=== PATIENT | female | born 1990 | race Caucasian/White ===

== ENCOUNTER 2016-11-08 08:44 | Emergency (ER) | payer BC ==
[~2016-11-08] VITALS: Ht 170.2 cm; Wt 78.0 kg
[~2016-11-08 08:44] MED LIST: ACET500T98 PO; AMO500 PO; IBUP-1542 PO; IBUP200C PO; TRAM50TA2 PO
[2016-11-08 08:51] VITALS: Ht 170.2 cm; Wt 78.0 kg
--- NOTE | 2016-11-08 12:58 | ERD ---
ER Documentation Chief Complaint Date/Time DATE: 11/08/16 TIME: 12:52 Chief Complaint RT BREAST PAIN STATES MIGHT HAVE A LEAK FROM IMPLANTS HPI Patient is a 26-year-old female who presents to the emergency department for concerns of right breast implant leakage. Patient states that she noticed that her right breast felt "more mushy and droopy" this morning. Patient does report some mild breast discomfort however she denies any pain. Patient denies any nipple discharge or bleeding. Patient denies any fevers, chills, nausea, vomiting, chest pain, shortness of breath, loss of consciousness.. Patient states she had her breast implants completed in 2005. Patient states they are not saline implants. Patient states that she did not follow-up with her surgeon given that he is now . ROS All systems reviewed and are negative except as per history of present illness. Medications Home Meds Active Scripts Tramadol HCl (Tramadol HCl) 50 Mg Tablet, 50 MG PO Q4 Y for PAIN, #15 TAB Prov:JI CELIS MD 04/07/16 Ibuprofen* (Motrin*) 600 Mg Tab, 600 MG PO Q6, #20 TAB Prov:JI CELIS MD 04/07/16 Ibuprofen* (Motrin*) 600 Mg Tab, 600 MG PO Q6, #14 TAB Prov:JI CELIS MD 06/08/15 Amoxicillin* (Amoxicillin*) 500 Mg Cap, 500 MG PO TID for 10 Days, CAP Prov:JI CELIS MD 06/08/15 Reported Medications Ibuprofen* (Ibuprofen*) 200 Mg Capsule, 800 MG PO PRN 10/13/11 Acetaminophen (Tylenol) 500 Mg Tab, 2 MG PO PRN 10/13/11 Allergies Allergies: Coded Allergies: No Known Allergy (Verified , 11/08/16) PMhx/Soc History of Surgery: No Anesthesia Reaction: No Hx Neurological Disorder: No Hx Respiratory Disorders: No Hx Cardiac Disorders: No Hx Psychiatric Problems: No Hx Miscellaneous Medical Probl: Yes (MIGRAINE) Hx Alcohol Use: No Hx Substance Use: No Hx Tobacco Use: No Smoking Status: Never smoker FmHx Family History: No diabetes Physical Exam Vitals Vital Signs Date Time Temp Pulse Resp B/P Pulse Ox O2 Delivery O2 Flow Rate FiO2 11/08/16 08:51 98.2 80 20 141/65 100 Physical Exam GENERAL: Well-developed, well-nourished female. Appears in no acute distress. HEAD: Normocephalic, atraumatic. EYES: Pupils are equally reactive bilaterally. EOMs grossly intact. No conjunctival erythema. ENT: Moist mucous membranes. No uvula deviation. No kissing tonsils. BREAST: Soft, no lumps or masses palpated. No edema, warmth, swelling or redness noted. No nipple discharge or bleeding. NECK: Supple. No meningismus. Normal range of motion of the neck. LUNG: Clear to auscultation bilaterally. No rhonchi, wheezing, rales or coarse breath sounds. HEART: Regular rate and rhythm. No murmurs, rubs or gallops. ABDOMEN: No scars, ecchymosis or rashes noted. Soft, nontender, and nondistended. Positive bowel sounds in all four quadrants. No rebound tenderness , no guarding. (-) McBurney's point tenderness. No CVA tenderness. BACK: No midline tenderness. EXTREMITIES: Equal pulses bilaterally. No peripheral clubbing, cyanosis or edema. No unilateral leg swelling. NEUROLOGIC: Alert and oriented. Moving all four extremities without any difficulty. Normal speech. Steady gait. SKIN: Normal color. Warm and dry. No rashes or lesions. Procedures/MDM MEDICAL DECISION MAKING: Patient is a 26-year-old female who presents to the emergency department with concerns of a right breast implant leakage. Vital signs were reviewed. Patient is afebrile. Patient was not hypoxic. I did offer and order the patient an ultrasound of her bilateral breasts, however upon ultrasound technicians arrival , patient was not found. Myself, nursing staff and ultrasound staff attempted to call the patient on numerous encounters, she continued to not be found. At this time, unable to rule out any causes of the patient's breast discomfort given that the patient eloped prior to receiving ultrasound imaging. Departure Condition: Stable LIANNA BARGER PA-C November 08, 2016 12:57
== END 2016-11-08 13:14 | disposition left against medical advice (07) ==
LOC: FTE 08:44
DX: N64.4 Mastodynia (principal)
CPT/HCPCS: 99282

== ENCOUNTER 2018-01-17 21:12 | Emergency (ER) | END 2018-01-18 00:10 | disposition left against medical advice (07) ==

== ENCOUNTER 2018-03-01 02:39 | Emergency (ER) | END 2018-03-01 02:49 | disposition left against medical advice (07) ==

== ENCOUNTER 2018-03-01 03:38 | Emergency (ER) | END 2018-03-01 05:10 | disposition home or self-care (01) ==

== ENCOUNTER 2018-07-11 18:22 | Inpatient (IN) | payer BC ==
[~2018-07-11] VITALS: Ht 165.1 cm; Wt 88.7 kg
[~2018-07-11 18:22] MED LIST changes: +ACET500C5 PO; -AMO500 PO; +AMOX500C2 PO; +IBUP-1982 PO; -IBUP200C PO; +NITR-58 PO
[2018-07-11 18:38] VITALS: BMI 32.9
[2018-07-11 18:40] VITALS: BP 127/77; PULSE 134; RESP 18
[2018-07-11] MEDS ORDERED: ACETAMINOPHEN 325 MG TAB PO ONE ×2 (19:00→19:30)
[2018-07-11] MEDS ORDERED: TERBUTALINE 1 MG/ML INJ SC ONE (19:00)
[2018-07-11] MEDS ORDERED: LACTATED RINGER'S 1,000 ML IV ONE (19:00)
[2018-07-11] MEDS: LACTATED RINGER'S 1,000 ML IV SCH (20:10)
[2018-07-11] MEDS ORDERED: BETAMET NA PHOS/AC(6 MG/ML) 2 ML INJ SYG IM SCH (22:30)
[2018-07-11] MEDS: URSODIOL 300 MG CAP PO SCH (22:43)
[2018-07-11] MEDS: CEPASTAT LOZENGE MT PRN (22:45)
[2018-07-11] MEDS: ACETAMINOPHEN 500 MG TAB PO PRN (23:21)
[2018-07-12 00:23] VITALS: BP 120/59; PULSE 123; RESP 20
[2018-07-12] MEDS: OSELTAMIVIR 75 MG CAP PO SCH ×3 (00:35→20:57)
[2018-07-12] MEDS ORDERED: TERBUTALINE 1 MG/ML INJ SC PRN (01:30)
[2018-07-12] MEDS: CEPASTAT LOZENGE MT PRN ×4 (01:55→23:26)
[2018-07-12] MEDS: LACTATED RINGER'S 1,000 ML IV SCH ×5 (01:56→20:45)
[2018-07-12] MEDS: ACETAMINOPHEN 500 MG TAB PO PRN ×2 (06:02→11:21)
[2018-07-12] MEDS ORDERED: PENICILLIN G K 2,500,000 UNITS in DEXTROSE 5% 50 ML IVPB PRN (06:30)
[2018-07-12] MEDS ORDERED: PENICILLIN G K 5,000,000 UNITS in DEXTROSE 5% 100 ML IVPB ONE (06:30)
[2018-07-12] MEDS ORDERED: CEFAZOLIN 1 GM INJ ONE (07:00)
[2018-07-12] MEDS: URSODIOL 300 MG CAP PO SCH ×2 (08:26→13:00)
[2018-07-12] MEDS: FERROUS SULFATE (EC) 325 MG TAB PO SCH (08:26)
[2018-07-12] MEDS: PRENATAL VITAMIN PO SCH (08:27)
[2018-07-12] MEDS ORDERED: AMPICILLIN 2 GM/NS (PMX) 100 ML ONE (11:53)
[2018-07-12] MEDS ORDERED: AMPICILLIN 2 GM/NS (PMX) 100 ML IV ONE (12:00)
--- NOTE | 2018-07-12 12:09 | HP ---
Date/Time of Note Date/Time of Note DATE: 07/12/18 TIME: 11:59 OB - History Hx of Present Free Text/Dictation see H&P [id number] Chief Complaint: as above Estimated Due Date: Aug 04, 2018 : 2 Para: 1 Care: Good Care Ultrasounds: Normal mid trimester US Obstetrical Complications: Other (cholestasis of , Influenza A) Past Family/Social History * Past Medical, Surgical, Family and Obstetric Histories reviewed from chart. OB Admission Exam Vital Signs Vital Signs Vital Signs Date Temp Pulse Resp B/P (MAP) Pulse Ox O2 O2 Flow FiO2 Time Delivery Rate 07/12/18 100.7 11:21 07/12/18 123 20 120/59 Room Air 00:23 (79) Last 72 hours Lab Results CBC & BMP 07/11/18 18:51 07/12/18 07:06 07/12/18 07:12 Liver Function Test 07/11/18 18:51 07/12/18 07:12 Alanine Aminotransferase (ALT/SGPT) 46 41 Albumin 3.5 2.8 L Alkaline Phosphatase 133 H 129 H Aspartate Amino Transf (AST/SGOT) 249 H 179 H Direct Bilirubin 0.00 0.00 Total Protein 6.9 5.8 #L THAO BUCKNER M.D. Jul 12, 2018 12:09
[2018-07-12] MEDS ORDERED: OXYTOCIN 30 UNITS/LR 500 ML IV SCH ×4 (12:30→17:11)
[2018-07-12] MEDS ORDERED: LIDOCAINE 1% (MPF) 30 ML INJ INJ PRN (13:00)
[2018-07-12] MEDS ORDERED: IBUPROFEN 600 MG TAB PO PRN (13:00)
[2018-07-12] MEDS ORDERED: METHYLERGONOVINE 0.2 MG INJ IM PRN ×3 (13:00→17:30)
[2018-07-12] MEDS ORDERED: BUTORPHANOL 2 MG INJ IV PRN (13:00)
[2018-07-12] MEDS ORDERED: OXYCODONE/ASPIRIN (4.88/325) TAB PO PRN (13:00)
[2018-07-12] MEDS ORDERED: BUTORPHANOL 1 MG INJ IV PRN (13:00)
[2018-07-12] MEDS ORDERED: OXYTOCIN 30 UNITS/LR 500 ML IV PRN ×3 (13:00→17:30)
[2018-07-12] MEDS ORDERED: CARBOPROST 250 MCG INJ IM PRN ×3 (13:00→17:30)
[2018-07-12] MEDS ORDERED: MISOPROSTOL 200 MCG TAB PR PRN ×3 (13:00→17:30)
--- NOTE | 2018-07-12 13:02 | HP ---
DATE OF ADMISSION: 07/11/2018 HISTORY OF PRESENT ILLNESS: A 28-year-old para 0-1-0-1, currently at 36 weeks and 5 days, was seen i n my office yesterday and was complaining of 2 weeks of severe diffuse abdominal itch and feeling sic k. The patient was sent to the hospital for further evaluation and was found to have elevation of T. Blood pressure was normal. Urine protein was negative and depressed platelet count, swab was foun d to be positive for influenza A. The patient was 2 cm dilation at that time, 80% effaced, -2. The patient was started on IV fluid hydration. She was found to have a fever as well and was started on Tamiflu 75 mg b.i.d. A complete laboratory tests was sent as well as urine culture. heart rate was tachycardic as well as the patient. In the morning, the patient's AST decreased a bit and the platelets as well went down to 107,000. WBC was 7.8. Her AST went down to 179. heart was tachycardic and the mother as well. The last temperature was 100.7. The patient was received a first dose of steroids for lung maturity yesterday and at 12:00 toda y in the afternoon she will get a second dose. I discussed the findings with Dr. Mock, the perinato logist, who recommended delivery of the patient secondary to suspected severe cholestasis of pregnanc y with liver function test elevation; however, if any diagnosis of cholestasis could not be made seco ndary to bile acid still pending. I discussed the rationale of induction of labor or augmenting of t he labor with the patient. I informed her that we do not have a definitive diagnosis of cholestasis of . However, we suspect that and we found that the risk of labor is lower than the risks of the cholestasis of . Patient understands and would like to proceed with augmentat ion of labor. Currently, I examined the patient and her cervix was 3, 80 -2 a change from 2 to 3 sin ce yesterday. Hence, the patient is in early labor already. GBS is still pending, so we will start the patient with ampicillin and will start on Pitocin as well. The patient's laboratory tests and OB panel were reviewed. OBSTETRICAL HISTORY: History of previous was consistent with labor and she was on [place] until 36 weeks. Currently, the is tachycardic; however does have good variability and a ccelerations. PLAN: The plan for this patient is to start Pitocin and ampicillin, will break her water in 4 hours. Will give epidural for pain control where it can help her with her back pain that she has. Will iso late the mother from the baby after delivery secondary to influenza A. Will continue on Actigall 300 mg 3 times a day and will continue with the Tamiflu. This management was discussed with Dr. Mock, the perinatologist. Dictated By: THAO BUCKNER MD RA/NTS Conf#: [id number] DID#: [id number] CC: INES RODRIGUEZ MD;*EndCC*
[2018-07-12] MEDS ORDERED: FENTAnyl 2MCG/ML-ROPIV 0.2% 100 ML ONE (13:35)
--- NOTE | 2018-07-12 13:53 | PAC ---
Date/Time of Note Date/Time of Note DATE: 07/13/18 TIME: 11:00 Post-Anesthesia Notes Post-Anesthesia Note Last documented vital signs Vital Signs Date Temp Pulse Resp B/P (MAP) Pulse Ox O2 O2 Flow FiO2 Time Delivery Rate 07/12/18 100.7 11:21 07/12/18 123 20 120/59 Room Air 00:23 (79) Activity: WNL Respiratory function: WNL Cardiovascular function: WNL Mental status: Baseline Pain reasonably controlled: Yes Hydration appropriate: Yes Nausea/Vomiting absent: Yes TIMOTHY HERNANDEZ MD Jul 12, 2018 13:53
--- NOTE | 2018-07-12 13:53 | PREAC ---
Date/Time of Note Date/Time of Note DATE: 07/12/18 TIME: 13:49 Anesthesia Eval and Record Evaluation Time Pre-Procedure Interview DATE: 07/12/18 TIME: 12:59 Age 28 Sex female NPO: 8 hrs Preoperative diagnosis iup @36 wks., labor, , severe uri sx's, maternal/ tachycardia Planned procedure naomi Past Medical History Past Medical History: Includes Cardio: Other (tachycardia) Pulm: Other (uri, flu A) GI: Other (cholestasis) : : (1), Para: (0), Gestational age: (36 wks.), Other (cholestasis, uri sx.s) Surgery & Anesthesia Issues No known issue Meds Anticoagulation: No Beta Lashae within 24 hr: No Reason Beta Lashae not given: Pt. not on B-Lashae Active Scripts Nitrofurantoin Monohyd Macrocr* (Macrobid*) 100 Mg Capsr, 100 MG PO BID for 7 Da ys, CAP Prov:ROSEMARY WOOD PA-C 03/01/18 Acetaminophen* (Tylophen*) 500 Mg Capsule, 1 CAP PO Q6H PRN for PAIN AND OR ELEVATED TEMP, #20 CAP Prov:NANCY LOPEZ 01/17/18 Tramadol HCl (Tramadol HCl) 50 Mg Tablet, 50 MG PO Q4 PRN for PAIN, #15 TAB Prov:JI CELIS MD 04/07/16 Ibuprofen* (Motrin*) 600 Mg Tab, 600 MG PO Q6, #20 TAB Prov:JI CELIS MD 04/07/16 Ibuprofen* (Motrin*) 600 Mg Tab, 600 MG PO Q6, #14 TAB Prov:JI CELIS MD 06/08/15 Amoxicillin* (Amoxicillin*) 500 Mg Cap, 500 MG PO TID for 10 Days, CAP Prov:JI CELIS MD 06/08/15 Reported Medications Ibuprofen* (Ibuprofen*) 200 Mg Capsule, 800 MG PO PRN 10/13/11 Acetaminophen (Tylenol) 500 Mg Tab, 2 MG PO PRN 10/13/11 Current Medications Lactated Ringer's 1,000 ml @ 125 mls/hr Q8H IV Last administered on 07/12/18at 08:26; Admin Dose 125 MLS/HR; Start 07/11/18 at 19:00 Betamethasone Acet/Betameth SodPhos ([place] Soluspan) 12 mg Q24H IM Last administered on 07/11/18 22:46; Admin Dose 12 MG; Start 07/11/18 at 22:30; Stop 07/12/18 at 22:31 Prenat Multivit/ [place]/Iron/Folic Ac () 1 tab DAILY PO Last administered on 07/12/18 08:27; Admin Dose 1 TAB; Start 07/12/18 at 09:00 Ferrous Sulfate (Ferrous Sulfate (Ec)) 325 mg DAILY PO Last administered on 07/12/18 08:26; Admin Dose 325 MG; Start 07/12/18 at 09:00 Ursodiol (Actigall) 300 mg TID PO Last administered on 07/12/18 08:26; Admin Dose 300 MG; Start 07/11/18 at 22:30 Acetaminophen (Tylenol Tab) 1,000 mg Q4H PRN PO MILD PAIN(1-3)OR ELEVATED TEMP Last administered on 07/12/18 11:21; Admin Dose 1,000 MG; Start 07/11/18 at 21:30 Phenol (Cepastat Lozenge) 1 lozenge Q1H PRN MT COUGH Last administered on 07/12/18 07:39; Admin Dose 1 LOZENGE; Start 07/11/18 at 22:30 Oseltamivir Phosphate (Tamiflu) 75 mg BID PO Last administered on 07/12/18 08:26; Admin Dose 75 MG; Start 07/12/18 at 00:00; Stop 07/16/18 at 09:01 Terbutaline Sulfate (Brethine) 0.25 mg ONCE PRN SC CONTRACTIONS Last administered on 07/12/18 03:20; Admin Dose 0.25 MG; Start 07/12/18 at 01:30 Ampicillin 50 ml @ 100 mls/hr Q4H IV ; Start 07/12/18 at 16:00 Oxytocin/Lactated Ringer's 500 ml @ 0 mls/hr FOR AUGMENTATION IV ; Start 07/12/18 at 12:30 Lactated Ringer's 1,000 ml @ 125 mls/hr Q8H IV Last administered on 07/12/18 13:41; Admin Dose 125 MLS/HR; Start 07/12/18 at 12:45 Butorphanol Tartrate (Stadol) 1 mg Q2H PRN IV PAIN; Start 07/12/18 at 13:00 Butorphanol Tartrate (Stadol) 2 mg Q2H PRN IV PAIN; Start 07/12/18 at 13:00 Lidocaine (Xylocaine 1% (Mpf)) 30 ml ONCE PRN INJ EPISIOTOMY; Start 07/12/18 at 13:00 Oxytocin/Lactated Ringer's 500 ml @ 500 mls/hr ONCE POST IV ; Start 07/12/18 at 13:00 Oxytocin/Lactated Ringer's 500 ml @ 125 mls/hr POST IV ; Start 07/12/18 at 13:00 Ibuprofen (Motrin) 600 mg ONCE PRN PO PAIN LEVEL 1-5; Start 07/12/18 at 13:00 Oxycodone/Aspirin (Percodan) 2 tab ONCE PRN PO PAIN LEVEL 6-10; Start 07/12/18 at 13:00 Oxytocin/Lactated Ringer's 500 ml @ 0 mls/hr ONCE PRN IV VAGINAL BLEEDING; Start 07/12/18 at 13:00 Methylergonovine Maleate (Methergine) 0.2 mg ONCE PRN IM VAGINAL BLEEDING; Start 07/12/18 at 13:00 Carboprost Tromethamine (Hemabate) 250 mcg ONCE PRN IM VAGINAL BLEEDING; Start 07/12/18 at 13:00 Misoprostol (Cytotec) 1,000 mcg ONCE PRN [place] VAGINAL BLEEDING; Start 07/12/18 at 13:00 Meds reviewed: Yes Allergies Coded Allergies: No Known Allergy (Verified , 11/08/16) Allergies Reviewed: Yes Labs/Studies Labs Reviewed: Reviewed by anesthesiologist Result Diagram: 07/12/18 0706 07/12/18 0712 Laboratory Tests 07/12/18 07:06 07/12/18 07:12 Blood Bank Test 07/11/18 18:51 Antibody Screen NEGATIVE Blood Type B POSITIVE Rh Immune Globulin Candidate NO test: Positive Studies: ECG (n/a), CXR (n/a) Pre-procedure Exam Last vitals Vital Signs Date Temp Pulse Resp B/P (MAP) Pulse Ox O2 O2 Flow FiO2 Time Delivery Rate 07/12/18 100.7 11:21 07/12/18 123 20 120/59 Room Air 00:23 (79) Airway: Adequate mouth opening, Adequate thyromental dist Mallampati: Mallampati II Teeth: Normal Lung: Normal Heart: Normal ASA Physical Status ASA physical status: 2 Emergency: E Planned Anesthetic Neuraxial: Epidural Planned Pain Management Local by surgeon Pre-operative Attestations Prior to commencing anesthesia and surgery, the patient was re-evaluated, there was verification of: *The patient's identity *The results of appropriate recent lab work and preoperative vital signs *The above evaluation not changing prior to induction *Anesthetic plan, risk benefits, alternative and complications discussed with patient/family; questions answered; patient/family understands, accepts and wishes to proceed. Tafe Teacher used TIMOTHY HERNANDEZ MD Jul 12, 2018 13:53
[2018-07-12] MEDS ORDERED: FENTAnyl 2MCG/ML-ROPIV 0.2% 100 ML BAG EPI SCH (14:00)
[2018-07-12] MEDS ORDERED: NALOXONE (0.4 MG/ML) INJ IV PRN ×2 (14:00→19:00)
[2018-07-12] MEDS ORDERED: AMPICILLIN 1 GM/NS (PMX) 50 ML IV SCH (16:00)
[2018-07-12] MEDS ORDERED: ACETAMINOPHEN 650 MG SUPP PR ONE ×2 (16:30→16:38)
--- NOTE | 2018-07-12 16:40 | QN ---
Documentation Comment I was contacted by to rupture the amniotic membranes for this patient I have reviewed the patient's chart and at this point I believe this patient should be managed by the attending physician. OLGA FAJARDO MD Jul 12, 2018 16:40
--- NOTE | 2018-07-12 16:46 | CONS ---
DATE OF ADMISSION: 07/11/2018 DATE OF CONSULTATION: 07/12/2018 I received a call this morning about this patient. She is currently 36.5 and was admitted secondary to moderate feeling hot. They did a swab for the flu and that she is positive for the flu. In addit ion, she has been experiencing itching. The bile acid is worsened today. Per Dr. Buckner, she is on Actigall. Her AST and ALT are over 160. heart tone is tachycardia, but there are acceleration s. In the addition, mother is tachycardic. At the time of receiving the call, patient was afebrile; however, I am unable to strip right now which is 5 minutes to 1. There are two values that are mate rnal fever. RECOMMENDATIONS: My recommendation is delivery given the cholestasis in regard with the itching and elevated liver enzyme. She is over 36 weeks. I do understand that the flu can elevate the liver enz ymes; however, this will not cause itching and overall with severe cholestasis, there is a chance of sudden , and given the gestational age, the best option would be delivery. Please make dumont re baby does not have deceleration. If there is any subtle deceleration, she needs to be delivered v ia . Otherwise, just the cooling measures and seen in consult internal medicine if there is a ____ managem ent for the fluid necessary and technically heart tone elevation is reactive to the maternal st atus and if with the maternal temperature comes down, so will the heart tone. Generally just c ooling measures for the mother. If needed, internal medicine can be consulted and for the baby, deli very is recommended given the cholestasis with the 6-year liver enzyme elevation over 36 weeks. The patient needs to understand that delivery risks of 37 increases the risk of lung maturity to about sl ightly higher than 3 to 4%, but the risk and the benefits would be to wait more towards delivery, whi ch will save the baby from possible . Dictated By: RANDA CONNER MD ST/NTS Conf#: [id number] DID#: [id number] CC: THAO BUCKNER MD;*EndCC*
--- NOTE | 2018-07-12 17:16 | QN ---
Documentation Comment see H&P [id number] THAO BUCKNER M.D. Jul 12, 2018 17:16
[2018-07-12] MEDS ORDERED: NACL 0.9% 3 ML SYG IV SCH (17:30)
[2018-07-12] MEDS ORDERED: CEFAZOLIN 2 GM/50 ML (PMX) 50 ML IVPB SCH (17:30)
[2018-07-12] MEDS ORDERED: KETOROLAC 30 MG INJ IV PRN ×2 (17:30→19:00)
[2018-07-12] MEDS ORDERED: HYDROCODONE/APAP (5/325) TAB PO PRN (17:30)
--- NOTE | 2018-07-12 17:42 | QN ---
Documentation Comment addendum to H&O dictation. Consent obtained for BTL. Pt still desires the BTL.Will perform the BTL per patient request. SHe does understand of its irreversaebility also understand it is a permanent procedure. Understand of alternatives such as IUD, OCP , Condooms and declines them THAO BUCKNER M.D. Jul 12, 2018 17:42
[2018-07-12] MEDS ORDERED: LIDOCAINE 2% (SDV) 5 ML INJ ONE (17:53)
[2018-07-12] MEDS ORDERED: AZITHROMYCIN 500MG/NS (PMX) 250 ML ONE (17:59)
[2018-07-12] MEDS ORDERED: ONDANSETRON 4 MG INJ ONE (18:03)
[2018-07-12] MEDS ORDERED: METOCLOPRAMIDE 10 MG INJ ONE ×2 (18:04→18:35)
[2018-07-12] MEDS ORDERED: morphine SULFATE/PF (10 MG/10 ML) INJ ONE (18:17)
[2018-07-12] MEDS ORDERED: OXYTOCIN 10 UNIT INJ ONE (18:19)
[2018-07-12] MEDS ORDERED: MIDAZOLAM 1 MG/ML 2 ML INJ ONE ×2 (18:23→18:33)
[2018-07-12] MEDS ORDERED: LACTATED RINGER'S 1,000 ML IV ONE (18:36)
[2018-07-12] MEDS ORDERED: KETOROLAC 30 MG INJ ONE (18:52)
[2018-07-12] MEDS ORDERED: FENTAnyl 50 MCG/ML VIAL ONE (18:54)
--- NOTE | 2018-07-12 18:55 | PREAC ---
Date/Time of Note Date/Time of Note DATE: 07/12/18 TIME: 18:49 Anesthesia Eval and Record Evaluation Time Pre-Procedure Interview DATE: 07/12/18 TIME: 17:29 Age 28 Sex female NPO: 8 hrs Preoperative diagnosis iup @ 36 wks., uri sx's, cholestasis, distress Planned procedure primary c/s Past Medical History Past Medical History: Includes : : (1), Para: (0), Gestational age: (36 wks.), Other ( tachycardia) Surgery & Anesthesia Issues No known issue Meds Anticoagulation: No Beta Lashae within 24 hr: No Reason Beta Lashae not given: Pt. not on B-Lashae Active Scripts Nitrofurantoin Monohyd Macrocr* (Macrobid*) 100 Mg Capsr, 100 MG PO BID for 7 Days, CAP Prov:ROSEMARY WOOD PA-C 03/01/18 Acetaminophen* (Tylophen*) 500 Mg Capsule, 1 CAP PO Q6H PRN for PAIN AND OR ELEVATED TEMP, #20 CAP Prov:NANCY LOPEZ 01/17/18 Tramadol HCl (Tramadol HCl) 50 Mg Tablet, 50 MG PO Q4 PRN for PAIN, #15 TAB Prov:JI CELIS MD 04/07/16 Ibuprofen* (Motrin*) 600 Mg Tab, 600 MG PO Q6, #20 TAB Prov:JI CELIS MD 04/07/16 Ibuprofen* (Motrin*) 600 Mg Tab, 600 MG PO Q6, #14 TAB Prov:JI CELIS MD 06/08/15 Amoxicillin* (Amoxicillin*) 500 Mg Cap, 500 MG PO TID for 10 Days, CAP Prov:JI CELIS MD 06/08/15 Reported Medications Ibuprofen* (Ibuprofen*) 200 Mg Capsule, 800 MG PO PRN 10/13/11 Acetaminophen (Tylenol) 500 Mg Tab, 2 MG PO PRN 10/13/11 Current Medications Betamethasone Acet/Betameth SodPhos ([place] Soluspan) 12 mg Q24H IM Last administered on 07/11/18at 22:46; Admin Dose 12 MG; Start 07/11/18 at 22:30; Stop 07/12/18 at 22:31 Prenat Multivit/ Machine Egg Washer/Iron/Folic Ac () 1 tab DAILY PO Last administered on 07/12/18 08:27; Admin Dose 1 TAB; Start 07/12/18 at 09:00 Ferrous Sulfate (Ferrous Sulfate (Ec)) 325 mg DAILY PO Last administered on 07/12/18 08:26; Admin Dose 325 MG; Start 07/12/18 at 09:00 Ursodiol (Actigall) 300 mg TID PO Last administered on 07/12/18 08:26; Admin Dose 300 MG; Start 07/11/18 at 22:30 Acetaminophen (Tylenol Tab) 1,000 mg Q4H PRN PO MILD PAIN(1-3)OR ELEVATED TEMP Last administered on 07/12/18 11:21; Admin Dose 1,000 MG; Start 07/11/18 at 21:30 Phenol (Cepastat Lozenge) 1 lozenge Q1H PRN MT COUGH Last administered on 07/12/18 07:39; Admin Dose 1 LOZENGE; Start 07/11/18 at 22:30 Oseltamivir Phosphate (Tamiflu) 75 mg BID PO Last administered on 07/12/18 08:26; Admin Dose 75 MG; Start 07/12/18 at 00:00; Stop 07/16/18 at 09:01 Terbutaline Sulfate (Brethine) 0.25 mg ONCE PRN SC CONTRACTIONS Last administered on 07/12/18 03:20; Admin Dose 0.25 MG; Start 07/12/18 at 01:30 Ampicillin 50 ml @ 100 mls/hr Q4H IV Last administered on 07/12/18 16:35; Admin Dose 100 MLS/HR; Start 07/12/18 at 16:00 Oxytocin/Lactated Ringer's 500 ml @ 0 mls/hr FOR AUGMENTATION IV Last administered on 07/12/18 14:02; Admin Dose 2 MLS/HR; Start 07/12/18 at 12:30 Lactated Ringer's 1,000 ml @ 125 mls/hr Q8H IV Last administered on 07/12/18 13:41; Admin Dose 125 MLS/HR; Start 07/12/18 at 12:45 Butorphanol Tartrate (Stadol) 1 mg Q2H PRN IV PAIN; Start 07/12/18 at 13:00 Butorphanol Tartrate (Stadol) 2 mg Q2H PRN IV PAIN; Start 07/12/18 at 13:00 Lidocaine (Xylocaine 1% (Mpf)) 30 ml ONCE PRN INJ EPISIOTOMY; Start 07/12/18 at 13:00 Oxytocin/Lactated Ringer's 500 ml @ 500 mls/hr ONCE POST IV ; Start 07/12/18 at 13:00 Oxytocin/Lactated Ringer's 500 ml @ 125 mls/hr POST IV ; Start 07/12/18 at 13:00 Ibuprofen (Motrin) 600 mg ONCE PRN PO PAIN LEVEL 1-5; Start 07/12/18 at 13:00 Oxycodone/Aspirin (Percodan) 2 tab ONCE PRN PO PAIN LEVEL 6-10; Start 07/12/18 at 13:00 Naloxone HCl (Narcan) 0.1 mg Q2M PRN IV DECREASED REPIRATORY RATE; Start 07/12/18 at 14:00; Stop 07/13/18 at 13:59 Fentanyl/ Ropivacaine 100 ml EPIDURAL INFUSION EPI ; Start 07/12/18 at 14:00 Cefazolin Sodium/ Dextrose 50 ml @ 100 mls/hr ONCE IVPB ; Start 07/12/18 at 17:30 Oxytocin/Lactated Ringer's 500 ml @ 0 mls/hr ONCE PRN IV VAGINAL BLEEDING; Start 07/12/18 at 17:30 IV Flush (NS 3 ml) 3 ml PER PROTOCOL IV ; Start 07/12/18 at 17:30 Oxytocin/Lactated Ringer's 500 ml @ 50 mls/hr Q10H IV ; Start 07/12/18 at 17:11; Stop 07/13/18 at 03:10 Acetaminophen/ Hydrocodone Bitart ([place] (5/325)) 1 tab Q4H PRN PO PAIN LEVEL 4-6; Start 07/12/18 at 17:30 Acetaminophen/ Hydrocodone Bitart ([place] (5/325)) 2 tab Q4H PRN PO PAIN LEVEL 7-10; Start 07/12/18 at 17:30 Ibuprofen (Motrin) 600 mg Q6 PO ; Start 07/15/18 at 18:00 Oxytocin/Lactated Ringer's 500 ml @ 0 mls/hr ONCE PRN IV VAGINAL BLEEDING; Start 07/12/18 at 17:30 Methylergonovine Maleate (Methergine) 0.2 mg ONCE PRN IM VAGINAL BLEEDING; Start 07/12/18 at 17:30 Carboprost Tromethamine (Hemabate) 250 mcg ONCE PRN IM VAGINAL BLEEDING; Start 07/12/18 at 17:30 Misoprostol (Cytotec) 1,000 mcg ONCE PRN [place] VAGINAL BLEEDING; Start 07/12/18 at 17:30 Ketorolac Tromethamine (Toradol) 30 mg Q6H PRN IV PAIN LEVEL 1-3; Start 07/12/18 at 17:30; Stop 07/15/18 at 17:29 Meds reviewed: Yes Allergies Coded Allergies: No Known Allergy (Verified , 11/08/16) Allergies Reviewed: Yes Labs/Studies Labs Reviewed: Reviewed by anesthesiologist Result Diagram: 07/12/18 0706 07/12/18 0712 Laboratory Tests 07/12/18 07:06 07/12/18 07:12 Blood Bank Test 07/11/18 18:51 Antibody Screen NEGATIVE Blood Product Summary Counts Blood Type B POSITIVE Rh Immune Globulin Candidate NO test: Positive Studies: ECG (n/a), CXR (n/a) Pre-procedure Exam Last vitals Vital Signs Date Temp Pulse Resp B/P (MAP) Pulse Ox O2 O2 Flow FiO2 Time Delivery Rate 07/12/18 101.1 12:25 07/12/18 123 20 120/59 Room Air 00:23 (79) Airway: Adequate mouth opening, Adequate thyromental dist Mallampati: Mallampati II Teeth: Normal Lung: Normal Heart: Normal ASA Physical Status ASA physical status: 2 Emergency: E Planned Anesthetic General/MAC: TIVA (post baby) Neuraxial: Epidural Planned Pain Management Epidural (epidural narcotics) Pre-operative Attestations Prior to commencing anesthesia and surgery, the patient was re-evaluated, there was verification of: *The patient's identity *The results of appropriate recent lab work and preoperative vital signs *The above evaluation not changing prior to induction *Anesthetic plan, risk benefits, alternative and complications discussed with patient/family; questions answered; patient/family understands, accepts and wishes to proceed. Truck Bench Mechanic used TIMOTHY HERNANDEZ MD Jul 12, 2018 18:55
[2018-07-12] MEDS ORDERED: MEPERIDINE 25 MG INJ IV PRN (19:00)
[2018-07-12] MEDS ORDERED: ZOLPIDEM 5 MG TAB PO PRN (19:00)
[2018-07-12] MEDS ORDERED: HYDROmorphONE 0.5 MG/0.5 ML SYG IV PRN ×2 (19:00)
[2018-07-12] MEDS ORDERED: NALBUPHINE HCL (10 MG/1 ML) INJ IV PRN (19:00)
[2018-07-12] MEDS ORDERED: HYDROmorphONE 1 MG/5 ML IV SYRINGE IV PRN ×3 (19:00)
[2018-07-12] MEDS ORDERED: MIDAZOLAM 1 MG/ML 2 ML INJ IV PRN (19:00)
[2018-07-12] MEDS ORDERED: ONDANSETRON 4 MG INJ IV PRN ×2 (19:00)
[2018-07-12] MEDS ORDERED: DIPHENHYDRAMINE 50 MG INJ IV PRN ×2 (19:00)
[2018-07-12] MEDS ORDERED: EPHEDrine SULFATE 50 MG/5 ML SYG IV PRN (19:00)
--- NOTE | 2018-07-12 19:00 | PAC ---
Date/Time of Note Date/Time of Note DATE: 07/12/18 TIME: 23:30 Post-Anesthesia Notes Post-Anesthesia Note Last documented vital signs Vital Signs Date Temp Pulse Resp B/P (MAP) Pulse Ox O2 O2 Flow FiO2 Time Delivery Rate 07/12/18 101.1 12:25 07/12/18 123 20 120/59 Room Air 00:23 (79) Activity: WNL Respiratory function: WNL Cardiovascular function: WNL Mental status: Baseline Pain reasonably controlled: Yes Hydration appropriate: Yes Nausea/Vomiting absent: Yes TIMOTHY HERNANDEZ MD Jul 12, 2018 19:00
--- NOTE | 2018-07-12 19:04 | QN ---
Documentation Comment see op note [id number] THAO BUCKNER M.D. Jul 12, 2018 19:04
--- NOTE | 2018-07-12 19:27 | OPPN ---
Date/Time of Note Date/Time of Note DATE: 07/13/18 TIME: 00:30 Anesthesia Follow up Anesthesia Follow up Last documented vital signs Vital Signs Date Temp Pulse Resp B/P (MAP) Pulse Ox O2 O2 Flow FiO2 Time Delivery Rate 07/12/18 101.1 12:25 07/12/18 123 20 120/59 Room Air 00:23 (79) Respiratory function: WNL Cardiovascular function: WNL Comments S: pt. pod #1. min. bt pain. min need for bt pain meds ie. nsaids/opiates. S: VSS & temp. improving HR 120s. temp. 99s. A: min. bt pain sec. to epidural mso4. P: no anesthetic complications. TIMOTHY HERNANDEZ MD Jul 12, 2018 19:27
--- NOTE | 2018-07-12 20:27 | HP ---
DATE OF ADMISSION: 07/11/2018 HISTORY OF PRESENT ILLNESS: I saw the patient who is a 28-year-old with para 0-1-0-1 that was admitted yesterday secondary to cholestasis of and the flu, the influenza A viral infection with a term induction secondary to perinatologist's recommendations. During the induction, was found to have a nonreassuring heart tracing, remote from delivery. Her cervix is 3 cm, 80%, -2, with tachycardia of 181/90, with late decelerations, now for primary for that. PAST MEDICAL HISTORY: Consistent with none. PAST SURGICAL HISTORY: Consistent with abdominoplasty. ALLERGIES: SHE NO KNOWN ALLERGIES. FAMILY HISTORY: Noncontributory. PAST OBSTETRICAL HISTORY: Consistent with one labor at 36 weeks . SOCIAL HISTORY: She denies toxic habits. PAST GYNECOLOGICAL HISTORY: She denies any history of cyst, fibroid or STDs. MEDICATIONS: The patient is currently on: 1. vitamins. 2. Actigall for cholestasis of . 3. Tamiflu for the influenza. LABORATORY TESTS: The patient's GBS is unknown. HIV, hepatitis B, and hepatitis C were negative. Gonorrhea and chlamydia was negative. T4, T3, and TSH was normal. Rubella immune, VDRL nonreactive. HIV was negative. A Pap smear actually was consistent with HPV positive. The patient is to have a repeat Pap smear after delivery. CBC today consistent with WBC of 7.8, hemoglobin of 8.7, hematocrit 26.6, and platelets of 107. UA today was negative. heart was 180-170 with late decelerations with minimal variability that time. PHYSICAL EXAMINATION: GENERAL: The patient appeared to be in agony secondary to back pain and having the influenza infection. LUNGS: Clear to auscultation bilaterally. ABDOMEN: Gravid. HEART: Regular rate and rhythm; however, she is tachycardic. EXTREMITIES: +1 edema bilaterally. VITAL SIGNS: The maximum today was 101.1, heart rate 123, respiration of 20, blood pressure 120/59. ASSESSMENT AND PLAN: This is a 28-year-old with para 0-1-0-1 at 36 weeks and 5 days, induction of labor for cholestasis of and also with influenza A, now with nonreassuring heart tracing remote from delivery for a primary C- section. The patient understands the risks of the procedure such as risk of bleeding, infection, damage to internal organs, risks of transfusion, anesthesia. She understands the benefit of the procedure will be the decrease of and maternal mortality secondary to nonreassuring heart tracing remote from delivery. Alternatively, we will continue vaginal trial. To note, the patient desired to have a bilateral tubal ligation; however, did not inform my office if she is sure about it. I informed the patient that I am more than happy drive to my office now to bring the consent, which she signed, but she and her decided not to proceed with the tubal ligation. Dictated By: THAO BUCKNER MD, RA/LIZZY Conf#: [id number] DID#: [id number] MTDD
[2018-07-12] MEDS ORDERED: OSELTAMIVIR 75 MG CAP PO SCH (21:00)
[2018-07-12] MEDS: KETOROLAC 30 MG INJ IV PRN (21:50)
[2018-07-12 22:05] VITALS: BP 136/61; PULSE 140; RESP 20
[2018-07-12 23:05] VITALS: BP 116/61; PULSE 135; RESP 20
[2018-07-13] VITALS (18 sets, daily range): BP systolic 117–141; BP diastolic 59–91; PULSE 72–126; RESP 19–29; Ht 165.1 cm; Wt 88.7 kg
--- NOTE | 2018-07-13 00:19 | OPR ---
DATE OF OPERATION: 07/12/2018 PREOPERATIVE DIAGNOSES: A 28-year-old with para 0-1-0-1 at 36 weeks and 5 days with cholestasis of p regnancy, non-reassuring heart tracing, remote from delivery, maternal fever, desires permanent sterilization. POSTOPERATIVE DIAGNOSES: A 28-year-old with para 0-1-0-1 at 36 weeks and 5 days with cholestasis of , non-reassuring heart tracing, remote from delivery, maternal fever, desires permanen t sterilization. OPERATION PERFORMED: Primary via Pfannenstiel skin incision and modified [place] bilateral tubal ligation. SURGEON: Thao Buckner MD DRILLER PORTABLE: Olga Torres MD ANESTHESIOLOGIST: William Oleary MD ANESTHESIA: Epidural anesthesia. ANTIBIOTICS GIVEN: 2 grams of Ancef prior to procedure. FINDINGS: Baby girl with Apgars 3, 8 and 9, with tight cord around the neck. Normal-appearing ovari es, tubes and uterus. Uterus as above. ESTIMATED BLOOD LOSS: 800 mL URINE OUTPUT: 90 mL clear urine at the end of the procedure. One dose of Methergine and one dose of Hemabate were given secondary to atony and bleeding . DISPOSITION: Stable, to recovery room. DESCRIPTION OF PROCEDURE: After risks, benefits and the alternatives of the procedure were discussed with the patient, the patient signed consent. She was taken to the operating room where epidural an esthesia was found to be adequate. She was then prepared and draped in normal sterile fashion in jolly thomas supine position in a leftward tilt. A Pfannenstiel skin incision was then made with the scalpel and carried throughout the underlying layer of fascia with the Bovie. The fascia was then incised me dially, extended laterally using the Bovie instrument. The fascia was then superiorly and inferiorly from the rectus muscles using the Bovie instrument. The rectus abdominal muscles were the n laterally. Peritoneum was entered sharply, stretched laterally manually and sharply. Bl adder flap was then created using the Metzenbaum scissors and bladder blade was inserted to protect t he bladder. Uterus incision was then created using the scalpel and carried laterally manually. Infa nt was then removed without any complications. Nose and mouth were suctioned. Cord was clamped and cut. Infant was handed off to the waiting nurse. Cord blood was collected. Placenta was then remov ed manually. Uterus was then exteriorized and cleared of all clots and debris. The uterus was found to be atonic. Pitocin and 1 dose of Methergine and Hemabate were given with good tonicity after. U terus incision was repaired using #1 chromic stitch in a running locked fashion. Good approximation and good hemostasis were noted. At that time, the attention was then turned to the bilateral tubes, they were grasped using the [place] and tied with 2-0 plain stitch bilaterally with double knots. Tu bes were cut using the Metzenbaum scissors and the pedicles were burned using the Bovie instrument. Portion of the tubes were sent to pathology. Gutters were then cleared of all clots and debris. The uterus was then placed back in the pelvis. Fibrillar was then placed on the incision to create tamp onade. Hemostasis was achieved. At this point, a chromic stitch was used to create excellent reappr oximation of the rectus abdominal muscles. Fascia was then reapproximated using #1 Vicryl stitch in running fashion. Subcutaneous layer was irrigated and dry. Subcutaneous layer was then reapproximat ed using 2-0 plain stitch in interrupted figure. Skin was then closed using the stapler. All instru ment count, lap count and needle count were found to be correct x3. The patient was taken back to [facility] recovery room in stable condition awakened. Dictated By: THAO BUCKNER MD, RA/LIZZY Conf#: [id number] DID#: [id number] CC: OLGA TORRES MD;*End*
[2018-07-13] MEDS: CEPASTAT LOZENGE MT PRN ×2 (03:38→21:06)
[2018-07-13] MEDS: KETOROLAC 30 MG INJ IV PRN ×2 (03:54→08:09)
[2018-07-13] MEDS: LACTATED RINGER'S 1,000 ML IV SCH ×2 (04:45→07:30)
[2018-07-13] MEDS ORDERED: LACTATED RINGER'S 1,000 ML IV SCH (08:00)
[2018-07-13] MEDS: FERROUS SULFATE (EC) 325 MG TAB PO SCH (08:09)
--- NOTE | 2018-07-13 09:32 | HP ---
Date/Time of Note Date/Time of Note DATE: 07/13/18 TIME: 09:03 Assessment/Plan VTE Prophylaxis Risk score (from Nsg)>0 risk: 3 SCD applied (from Nsg): Yes Pharmacological prophylaxis: other Lines/Catheters IV Catheter Type (from Nrsg): Peripheral IV Assessment/Plan Hospital Course Assessment and plan: 28-year-old female status post times 1 day, positive influenza A, cholestasis of , HPV, who was transferred to the ICU after with elevated temperatures, hypoxia and shortness of breath. # Shortness of breath hypoxia: Symptoms likely due to + influenza A, which was diagnosed in the last 24 hours. Patient has been on Tamiflu for the last 24 hours. Chest x-ray does show signs of possible pulmonary vascular congestion versus pneumonia.ABG was performed this morning, that showed pH of 7.42, PCO2 34, PaO2 of 83, and bicarb of 22.5. -Continue care in the intensive care unit for now, try to wean patient off nonrebreather, will get infectious disease and pulmonary consults -ABG results reviewed, monitor for now, consider duo nebs as needed -continue Tamiflu -Motrin and perhaps Percodan as needed for pain fevers # Elevated LFTs/cholestasis of : AST ALT mid 100-200 range. Of note patient was on Actigall before delivery. - continue to monitor liver enzymes. 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 No signs of any bleeding. -Monitor CBC daily, hold off on any anticoagulants. Critical care time spent on patient care today equals 55 minutes. Result Diagram: 07/13/18 0749 07/13/18 0749 Results 24hrs Laboratory Tests Test 07/12/18 11:00 07/13/18 07:49 07/13/18 08:18 Prothrombin Time 13.2 Prothrombin Time Ratio 1.0 INR International 0.99 Normalized Ratio Activated Partial Thromboplast 30.3 Time White Blood Count 6.5 Red Blood Count 3.00 L Hemoglobin 8.5 L Hematocrit 26.3 L Mean Corpuscular Volume 87.7 Mean Corpuscular Hemoglobin 28.3 L Mean Corpuscular 32.3 Hemoglobin Concent Red Cell Distribution Width 13.9 Platelet Count 106 L Mean Platelet Volume 13.7 H Immature Granulocytes % 1.200 H Neutrophils % 87.4 H Lymphocytes % 7.5 L Monocytes % 3.7 Eosinophils % 0.0 Basophils % 0.2 Nucleated Red Blood Cells % 0.0 Immature Granulocytes # 0.080 H Neutrophils # 5.7 Lymphocytes # 0.5 L Monocytes # 0.2 L Eosinophils # 0.0 Basophils # 0.0 Nucleated Red Blood Cells # 0.0 Sodium Level 136 Potassium Level 4.0 Chloride Level 109 Carbon Dioxide Level 22 Anion Gap 5 Blood Urea Nitrogen 9 Creatinine 0.47 Est Glomerular Filtrat > 60 Rate mL/min Glucose Level 100 Calcium Level 8.2 L Total Bilirubin 0.0 L Direct Bilirubin 0.00 Indirect Bilirubin 0.0 Aspartate Amino 321 H Transf (AST/SGOT) Alanine 64 Aminotransferase (ALT/SGPT) Alkaline Phosphatase 99 Total Protein 5.0 L Albumin 2.4 L Globulin 2.60 Albumin/Globulin Ratio 0.92 Blood Gas Specimen Source Blood arterial Arterial Blood Date Drawn 07/13/2018 8:50:11 AM Arterial Blood pH 7.427 (Temp corrected) Arterial Blood pCO2 34.9 L (Temp correct) Arterial Blood pO2 83.3 (Temp corrected) Arterial Blood HCO3 22.5 Arterial Blood Base Excess -1.5 Arterial Blood 95.7 Oxygen Saturation Bin Test N/A Arterial Blood Gas Right Brachial Puncture Site Arterial 0.3 Blood Carboxyhemoglobin Arterial Blood Methemoglobin 0.2 Blood Gas A-a O2 Differential 594.8 H Oxyhemoglobin Percent 95.2 Blood Gas Temperature 37.0 Blood Gas Modality MASK - NRB FiO2 100.0 Blood Gas Notified Whom AT Blood Gas Notified Time 07/13/2018 8:58:28 AM HPI/ROS Admit Date/Time Admit Date/Time Jul 11, 2018 at 21:22 Hx of Present Illness 28-year-old para 0-1-0-1, status post yesterday, positive influenza A diagnosed in the last 1-2 days presently on Tamiflu, HPV, elevated LFTs - cholestasis of , who was transferred to intensive care unit early this morning with shortness of breath and hypoxia. Patient was brought in for induction of labor yesterday because of the cholestasis of . Apparently during the delivery baby's heart rate became tachycardic and this was converted to a which occurred yesterday. Afterwards patient pos toperatively yesterday evening started having shortness of breath and desaturation to the mid 80s. An NURSING CONSULTANT was called then and patient was placed on oxygen supplementation including nonrebreather. Patient is presently on nonrebreather and now transferred to intensive care unit. No upper or lower GI bleeding, diarrhea constipation, or nausea vomiting. Patient did have elevated temperature this morning 100.1. ABG was performed that showed pH of 7.42, PCO2 34, PaO2 of 83, and bicarb of 22.5. Patient is presently on Tamiflu and low- dose IV fluids but her chest x-ray does show signs of mild cardiomegaly with increased pulmonary vascularity, interstitial pulmonary edema and bilateral pleural effusions, cannot rule out CHF or fluid overload versus superimposed pneumonia. PMH/Family/Social Past Medical History Medications Current Medications Prenat Multivit/ [place]/Iron/Folic Ac () 1 tab DAILY PO Last administered on 07/12/18 08:27; Admin Dose 1 TAB; Start 07/12/18 at 09:00 Ferrous Sulfate (Ferrous Sulfate (Ec)) 325 mg DAILY PO Last administered on 07/13/18 08:09; Admin Dose 325 MG; Start 07/12/18 at 09:00 Acetaminophen (Tylenol Tab) 1,000 mg Q4H PRN PO MILD PAIN(1-3)OR ELEVATED TEMP Last administered on 07/12/18 11:21; Admin Dose 1,000 MG; Start 07/11/18 at 21:30 Phenol (Cepastat Lozenge) 1 lozenge Q1H PRN MT COUGH Last administered on 07/13/18 03:38; Admin Dose 1 LOZENGE; Start 07/11/18 at 22:30 Oseltamivir Phosphate (Tamiflu) 75 mg BID PO Last administered on 07/12/18 20:57; Admin Dose 75 MG; Start 07/12/18 at 00:00; Stop 07/16/18 at 09:01 Terbutaline Sulfate ([place]) 0.25 mg ONCE PRN SC CONTRACTIONS Last administered on 07/12/18 03:20; Admin Dose 0.25 MG; Start 07/12/18 at 01:30 Oxytocin/Lactated Ringer's 500 ml @ 0 mls/hr FOR AUGMENTATION IV Last administered on 07/12/18at 14:02; Admin Dose 2 MLS/HR; Start 07/12/18 at 12:30 Lactated Ringer's 1,000 ml @ 125 mls/hr Q8H IV Last administered on 07/13/18at 07:30; Admin Dose 125 MLS/HR; Start 07/12/18 at 12:45 Oxytocin/Lactated Ringer's 500 ml @ 500 mls/hr ONCE POST IV Last administered on 07/12/18at 19:23; Admin Dose 500 MLS/HR; Start 07/12/18 at 13:00 Oxytocin/Lactated Ringer's 500 ml @ 125 mls/hr POST IV ; Start 07/12/18 at 13:00 Ibuprofen (Motrin) 600 mg ONCE PRN PO PAIN LEVEL 1-5; Start 07/12/18 at 13:00 Oxycodone/Aspirin (Percodan) 2 tab ONCE PRN PO PAIN LEVEL 6-10; Start 07/12/18 at 13:00 Naloxone HCl (Narcan) 0.1 mg Q2M PRN IV DECREASED REPIRATORY RATE; Start 07/12/18 at 14:00; Stop 07/13/18 at 13:59 Oxytocin/Lactated Ringer's 500 ml @ 0 mls/hr ONCE PRN IV VAGINAL BLEEDING; Start 07/12/18 at 17:30 IV Flush (NS 3 ml) 3 ml PER PROTOCOL IV ; Start 07/12/18 at 17:30 Acetaminophen/ Hydrocodone Bitart ([place] (5/325)) 1 tab Q4H PRN PO PAIN LEVEL 4-6 Last administered on 07/13/18at 08:09; Admin Dose 1 TAB; Start 07/12/18 at 1 7:30 Acetaminophen/ Hydrocodone Bitart ([place] (5/325)) 2 tab Q4H PRN PO PAIN LEVEL 7-10; Start 07/12/18 at 17:30 Ibuprofen (Motrin) 600 mg Q6 PO ; Start 07/13/18 at 18:00 Oxytocin/Lactated Ringer's 500 ml @ 0 mls/hr ONCE PRN IV VAGINAL BLEEDING; Start 07/12/18 at 17:30 Methylergonovine Maleate (Methergine) 0.2 mg ONCE PRN IM VAGINAL BLEEDING; Start 07/12/18 at 17:30 Carboprost Tromethamine (Hemabate) 250 mcg ONCE PRN IM VAGINAL BLEEDING; Start 07/12/18 at 17:30 Misoprostol (Cytotec) 1,000 mcg ONCE PRN [place] VAGINAL BLEEDING; Start 07/12/18 at 17:30 Naloxone HCl (Narcan) 0.1 mg Q2M PRN IV DECREASED REPIRATORY RATE; Start 07/12/18 at 19:00; Stop 07/13/18 at 18:59 Ketorolac Tromethamine (Toradol) 30 mg Q6H PRN IV PAIN Last administered on 07/13/18at 08:09; Admin Dose 30 MG; Start 07/12/18 at 19:00; Stop 07/13/18 at 18:59 Hydromorphone HCl (Dilaudid) 0.2 mg Q3H PRN IV PAIN LEVEL 1-5; Start 07/12/18 at 19:00; Stop 07/13/18 at 18:59 Hydromorphone HCl (Dilaudid) 0.4 mg Q3H PRN IV PAIN LEVEL 6-10 Last adm inistered on 07/12/18at 20:06; Admin Dose 0.4 MG; Start 07/12/18 at 19:00; Stop 07/13/18 at 18:59 Diphenhydramine HCl (Benadryl) 25 mg Q6H PRN IV ITCHING; Start 07/12/18 at 19:00; Stop 07/13/18 at 18:59 Nalbuphine HCl (Nubain) 2 mg ONCE PRN IV ITCHING; Start 07/12/18 at 19:00; Stop 07/13/18 at 18:59 Ondansetron HCl (Zofran Inj) 4 mg Q6H PRN IV NAUSEA AND/OR VOMITING; Start 07/12/18 at 19:00; Stop 07/13/18 at 18:59 Zolpidem Tartrate (Ambien) 5 mg HS MAY REPEAT X 1 PRN PO INSOMNIA; Start 07/12/18 at 19:00; Stop 07/13/18 at 18:59 Lactated Ringer's 1,000 ml @ 50 mls/hr Q20H IV ; Start 07/13/18 at 08:00 Coded Allergies: No Known Allergy (Verified , 11/08/16) Past Surgical History Past Surgical Hx: other (Liposuction, prior breast implants with removal) Social History Alcohol Use: none Smoking Status: Never smoker Drug Use: none Exam/Review of Systems Vital Signs Vitals Vital Signs Date Temp Pulse Resp B/P (MAP) Pulse Ox O2 O2 Flow FiO2 Time Delivery Rate 07/13/18 96 15.0 04:02 07/13/18 100.1 117 20 141/64 Non 04:00 (89) Rebreathe r Intake and Output 07/12/18 07/12/18 07/13/18 1515:00 23:00 07:00 IntakeIntake Total 1452 ml 303 ml 375 ml OutputOutput Total 700 ml 1475 ml 175 ml BalanceBalance 752 ml -1172 ml 200 ml Exam Exam GENERAL: Lying in bed, on nonrebreather HEENT: Pupils equal round reactive light, extra muscles are intact NECK: Supple LUNGS: Slightly distant breath sounds bilaterally CV: S1, S2 heard ABDOMEN: Nondistended, no rebound or guarding HEART: Regular rate and rhythm; however, she is tachycardic. EXTREMITIES: Trace pitting edema bilateral lower extremity to the mid calves NEURO: No focal deficits LING ESCALANTE Jul 13, 2018 09:14
[2018-07-13] MEDS ORDERED: SOD CHLORIDE 0.45% 1,000 ML IV SCH (10:00)
[2018-07-13] MEDS: PRENATAL VITAMIN PO SCH (10:54)
[2018-07-13] MEDS: OSELTAMIVIR 75 MG CAP PO SCH ×2 (11:00→20:09)
--- NOTE | 2018-07-13 11:37 | CONS ---
Date/Time of Note Date/Time of Note DATE: 07/13/18 TIME: 11:24 Assessment/Plan Assessment/Plan Assessment/Plan IMP: 1. Hypoxemic Respiratory Insufficiency--in a patient post- with Influenza A and CXR with B/L ground glass opacities and mild congestion. This likely represents a viral pneumonia, though other considerations include Dennis's Syndrome (aspiration pneumonitis in ) and less likely post- cardiomyopathy. 2. Elevated LFTs/cholestasis of 3. Status post : Postop day #1 4. Thrombocytopenia 5, Anemia RECS: 1. Monitor in ICU 2. Titrate O2 as tolerated 3. Continue Tamiflu 4. RUQ U/S 5. D/C IVFs 6. ECHO 7. Lovenox for VTE prophylaxis 8. Incentive spirometry 9. Gentle diuresis Result Diagram: 07/13/18 0749 07/13/18 0749 Results 24hrs Laboratory Tests Test 07/13/18 07:49 07/13/18 08:18 White Blood Count 6.5 Red Blood Count 3.00 L Hemoglobin 8.5 L Hematocrit 26.3 L Mean Corpuscular Volume 87.7 Mean Corpuscular Hemoglobin 28.3 L Mean Corpuscular Hemoglobin Concent 32.3 Red Cell Distribution Width 13.9 Platelet Count 106 L Mean Platelet Volume 13.7 H Immature Granulocytes % 1.200 H Neutrophils % 87.4 H Lymphocytes % 7.5 L Monocytes % 3.7 Eosinophils % 0.0 Basophils % 0.2 Nucleated Red Blood Cells % 0.0 Immature Granulocytes # 0.080 H Neutrophils # 5.7 Lymphocytes # 0.5 L Monocytes # 0.2 L Eosinophils # 0.0 Basophils # 0.0 Nucleated Red Blood Cells # 0.0 Sodium Level 136 Potassium Level 4.0 Chloride Level 109 Carbon Dioxide Level 22 Anion Gap 5 Blood Urea Nitrogen 9 Creatinine 0.47 Est Glomerular Filtrat Rate mL/min > 60 Glucose Level 100 Calcium Level 8.2 L Total Bilirubin 0.0 L Direct Bilirubin 0.00 Indirect Bilirubin 0.0 Aspartate Amino Transf (AST/SGOT) 321 H Alanine Aminotransferase (ALT/SGPT) 64 Alkaline Phosphatase 99 Total Protein 5.0 L Albumin 2.4 L Globulin 2.60 Albumin/Globulin Ratio 0.92 Blood Gas Specimen Source Blood arterial Arterial Blood Date Drawn 07/13/2018 8:50:11 AM Arterial Blood pH (Temp corrected) 7.427 Arterial Blood pCO2 (Temp correct) 34.9 L Arterial Blood pO2 (Temp corrected) 83.3 Arterial Blood HCO3 22.5 Arterial Blood Base Excess -1.5 Arterial Blood Oxygen Saturation 95.7 Bin Test N/A Arterial Blood Gas Puncture Site Right Brachial Arterial Blood Carboxyhemoglobin 0.3 Arterial Blood Methemoglobin 0.2 Blood Gas A-a O2 Differential 594.8 H Oxyhemoglobin Percent 95.2 Blood Gas Temperature 37.0 Blood Gas Modality MASK - NRB FiO2 100.0 Blood Gas Notified Whom AT Blood Gas Notified Time 07/13/2018 8:58:28 AM Consultation Date/Type/Reason Admit Date/Time Jul 11, 2018 at 21:22 Date of Consultation: Jul 13, 2018 Type of Consult Pulm/CCM Reason for Consultation Hypoxemic Resp Failure Hx of Present Illness Briefly, this is a 28-year-old status post yesterday, who presented a few days prior with flu-like symptoms, found to have influenza A and cholestasis of prior to the decision to undergo . Her post-op course was complicated by hypoxemic resp insufficiency prompting [employer] and transfer to the ICU. She is now on 12 L FM. She denies any dyspnea. Constitutional: no complaints, improved Eyes: no complaints ENT: no complaints, dysphagia Respiratory: no complaints Cardiovascular: no complaints Gastrointestinal: no complaints Genitourinary: no complaints Musculoskeletal: no complaints Skin: no complaints Neurologic: no complaints Endocrine: no complaints Lymphatic: no complaints Psychological: no complaints Immunologic: no complaints Past Medical History Medical History: no pertinent history Medications Current Medications Prenat Multivit/ Starr/Iron/Folic Ac () 1 tab DAILY PO Last administered on 07/13/18at 10:54; Admin Dose 1 TAB; Start 07/12/18 at 09:00 Ferrous Sulfate (Ferrous Sulfate (Ec)) 325 mg DAILY PO Last administered on 07/13/18 08:09; Admin Dose 325 MG; Start 07/12/18 at 09:00 Phenol (Cepastat Lozenge) 1 lozenge Q1H PRN MT COUGH Last administered on 07/13/18 03:38; Admin Dose 1 LOZENGE; Start 07/11/18 at 22:30 Oseltamivir Phosphate (Tamiflu) 75 mg BID PO Last administered on 07/13/18at 11:00; Admin Dose 75 MG; Start 07/12/18 at 00:00; Stop 07/16/18 at 09:01 Terbutaline Sulfate (Brethine) 0.25 mg ONCE PRN SC CONTRACTIONS Last administered on 07/12/18at 03:20; Admin Dose 0.25 MG; Start 07/12/18 at 01:30 Oxytocin/Lactated Ringer's 500 ml @ 0 mls/hr FOR AUGMENTATION IV Last administered on 07/12/18at 14:02; Admin Dose 2 MLS/HR; Start 07/12/18 at 12:30 Oxytocin/Lactated Ringer's 500 ml @ 500 mls/hr ONCE POST IV Last administered on 07/12/18at 19:23; Admin Dose 500 MLS/HR; Start 07/12/18 at 13:00 Oxytocin/Lactated Ringer's 500 ml @ 125 mls/hr POST IV ; Start 07/12/18 at 13:00 Ibuprofen (Motrin) 600 mg ONCE PRN PO PAIN LEVEL 1-5; Start 07/12/18 at 13:00 Oxycodone/Aspirin (Percodan) 2 tab ONCE PRN PO PAIN LEVEL 6-10; Start 07/12/18 at 13:00 Naloxone HCl (Narcan) 0.1 mg Q2M PRN IV DECREASED REPIRATORY RATE; Start 07/12/18 at 14:00; Stop 07/13/18 at 13:59 Oxytocin/Lactated Ringer's 500 ml @ 0 mls/hr ONCE PRN IV VAGINAL BLEEDING; Start 07/12/18 at 17:30 IV Flush (NS 3 ml) 3 ml PER PROTOCOL IV ; Start 07/12/18 at 17:30 Acetaminophen/ Hydrocodone Bitart ([place] (5/325)) 2 tab Q4H PRN PO PAIN LEVEL 7-10; Start 07/12/18 at 17:30 Ibuprofen (Motrin) 600 mg Q6 PO ; Start 07/13/18 at 18:00 Oxytocin/Lactated Ringer's 500 ml @ 0 mls/hr ONCE PRN IV VAGINAL BLEEDING; Start 07/12/18 at 17:30 Methylergonovine Maleate (Methergine) 0.2 mg ONCE PRN IM VAGINAL BLEEDING; Start 07/12/18 at 17:30 Carboprost Tromethamine (Hemabate) 250 mcg ONCE PRN IM VAGINAL BLEEDING; Start 07/12/18 at 17:30 Misoprostol (Cytotec) 1,000 mcg ONCE PRN VA VAGINAL BLEEDING; Start 07/12/18 at 17:30 Naloxone HCl (Narcan) 0.1 mg Q2M PRN IV DECREASED REPIRATORY RATE; Start 07/12/18 at 19:00; Stop 07/13/18 at 18:59 Ketorolac Tromethamine (Toradol) 30 mg Q6H PRN IV PAIN Last administered on 07/13/18at 08:09; Admin Dose 30 MG; Start 07/12/18 at 19:00; Stop 07/13/18 at 18:59 Hydromorphone HCl (Dilaudid) 0.2 mg Q3H PRN IV PAIN LEVEL 1-5; Start 07/12/18 at 19:00; Stop 07/13/18 at 18:59 Hydromorphone HCl (Dilaudid) 0.4 mg Q3H PRN IV PAIN LEVEL 6-10 Last administered on 07/12/18at 20:06; Admin Dose 0.4 MG; Start 07/12/18 at 19:00; Stop 07/13/18 at 18:59 Diphenhydramine HCl (Benadryl) 25 mg Q6H PRN IV ITCHING; Start 07/12/18 at 19 :00; Stop 07/13/18 at 18:59 Nalbuphine HCl (Nubain) 2 mg ONCE PRN IV ITCHING; Start 07/12/18 at 19:00; Stop 07/13/18 at 18:59 Ondansetron HCl (Zofran Inj) 4 mg Q6H PRN IV NAUSEA AND/OR VOMITING; Start 07/12/18 at 19:00; Stop 07/13/18 at 18:59 Zolpidem Tartrate (Ambien) 5 mg HS MAY REPEAT X 1 PRN PO INSOMNIA; Start 07/12/18 at 19:00; Stop 07/13/18 at 18:59 Sodium Chloride 1,000 ml @ 50 mls/hr Q20H IV Last administered on 07/13/18at 10:54; Admin Dose 50 MLS/HR; Start 07/13/18 at 10:00 Allergies: Coded Allergies: No Known Allergy (Verified , 5/4/17) Past Surgical History Past Surgical Hx: other (Liposuction, prior breast implants with removal) Family History Significant Family History: no pertinent family hx Social History Alcohol Use: none Smoking Status: Never smoker Drug Use: none Exam/Review of Systems Vital Signs Vitals Vital Signs Date Temp Pulse Resp B/P (MAP) Pulse Ox O2 O2 Flow FiO2 Time Delivery Rate 07/13/18 Simple 10.0 08:30 Mask 07/13/18 80 08:00 07/13/18 96 04:02 07/13/18 100.1 20 141/64 04:00 (89) Intake and Output 07/12/18 07/12/18 07/13/18 1515:00 23:00 07:00 IntakeIntake Total 1452 ml 303 ml 375 ml OutputOutput Total 700 ml 1475 ml 175 ml BalanceBalance 752 ml -1172 ml 200 ml Exam Constitutional: alert, oriented, well developed Psych: no complaints, nl mood/affect Head: normocephalic, atraumatic Eyes: nl conjunctiva, EOMI, nl lids, nl sclera ENMT: nl external ears & nose, nl lips & teeth, nl nasal mucosa & septum, mucosa pink and moist Neck: supple, non-tender Respiratory: clear to auscultation Cardiovascular: regular rate and rhythm, nl pulses Gastrointestinal: nl liver, spleen, non-tender, distended, surgical scars Musculoskeletal: nl extremities to inspection Extremities: normal pulses 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, nl mental status, nl speech, nl strength, DTR's symmetric Skin: nl turgor Medications Medications Current Medications Prenat Multivit/ Podiatric Assistant/Iron/Folic Ac () 1 tab DAILY PO Last admi nistered on 07/13/18at 10:54; Admin Dose 1 TAB; Start 07/12/18 at 09:00 Ferrous Sulfate (Ferrous Sulfate (Ec)) 325 mg DAILY PO Last administered on 07/13/18at 08:09; Admin Dose 325 MG; Start 07/12/18 at 09:00 Phenol (Cepastat Lozenge) 1 lozenge Q1H PRN MT COUGH Last administered on 07/13/18at 03:38; Admin Dose 1 LOZENGE; Start 07/11/18 at 22:30 Oseltamivir Phosphate (Tamiflu) 75 mg BID PO Last administered on 07/13/18at 11:00; Admin Dose 75 MG; Start 07/12/18 at 00:00; Stop 07/16/18 at 09:01 Terbutaline Sulfate (Brethine) 0.25 mg ONCE PRN SC CONTRACTIONS Last administered on 07/12/18at 03:20; Admin Dose 0.25 MG; Start 07/12/18 at 01:30 Oxytocin/Lactated Ringer's 500 ml @ 0 mls/hr FOR AUGMENTATION IV Last administered on 07/12/18at 14:02; Admin Dose 2 MLS/HR; Start 07/12/18 at 12:30 Oxytocin/Lactated Ringer's 500 ml @ 500 mls/hr ONCE POST IV Last administered on 07/12/18at 19:23; Admin Dose 500 MLS/HR; Start 07/12/18 at 13:00 Oxytocin/Lactated Ringer's 500 ml @ 125 mls/hr POST IV ; Start 07/12/18 at 13:00 Ibuprofen (Motrin) 600 mg ONCE PRN PO PAIN LEVEL 1-5; Start 07/12/18 at 13:00 Oxycodone/Aspirin (Percodan) 2 tab ONCE PRN PO PAIN LEVEL 6-10; Start 07/12/18 at 13:00 Naloxone HCl (Narcan) 0.1 mg Q2M PRN IV DECREASED REPIRATORY RATE; Start 07/12/18 at 14:00; Stop 07/13/18 at 13:59 Oxytocin/Lactated Ringer's 500 ml @ 0 mls/hr ONCE PRN IV VAGINAL BLEEDING; Start 07/12/18 at 17:30 IV Flush (NS 3 ml) 3 ml PER PROTOCOL IV ; Start 07/12/18 at 17:30 Acetaminophen/ Hydrocodone Bitart ([place] (5/325)) 2 tab Q4H PRN PO PAIN LEVEL 7-10; Start 07/12/18 at 17:30 Ibuprofen (Motrin) 600 mg Q6 PO ; Start 07/13/18 at 18:00 Oxytocin/Lactated Ringer's 500 ml @ 0 mls/hr ONCE PRN IV VAGINAL BLEEDING; Start 07/12/18 at 17:30 Methylergonovine Maleate (Methergine) 0.2 mg ONCE PRN IM VAGINAL BLEEDING; St art 07/12/18 at 17:30 Carboprost Tromethamine (Hemabate) 250 mcg ONCE PRN IM VAGINAL BLEEDING; Start 07/12/18 at 17:30 Misoprostol (Cytotec) 1,000 mcg ONCE PRN VA VAGINAL BLEEDING; Start 07/12/18 at 17:30 Naloxone HCl (Narcan) 0.1 mg Q2M PRN IV DECREASED REPIRATORY RATE; Start 07/12/18 at 19:00; Stop 07/13/18 at 18:59 Ketorolac Tromethamine (Toradol) 30 mg Q6H PRN IV PAIN Last administered on 07/13/18at 08:09; Admin Dose 30 MG; Start 07/12/18 at 19:00; Stop 07/13/18 at 18:59 Hydromorphone HCl (Dilaudid) 0.2 mg Q3H PRN IV PAIN LEVEL 1-5; Start 07/12/18 at 19:00; Stop 07/13/18 at 18:59 Hydromorphone HCl (Dilaudid) 0.4 mg Q3H PRN IV PAIN LEVEL 6-10 Last administered on 07/12/18at 20:06; Admin Dose 0.4 MG; Start 07/12/18 at 19:00; Stop 07/13/18 at 18:59 Diphenhydramine HCl (Benadryl) 25 mg Q6H PRN IV ITCHING; Start 07/12/18 at 19:00; Stop 07/13/18 at 18:59 Nalbuphine HCl (Nubain) 2 mg ONCE PRN IV ITCHING; Start 07/12/18 at 19:00; Stop 07/13/18 at 18:59 Ondansetron HCl (Zofran Inj) 4 mg Q6H PRN IV NAUSEA AND/OR VOMITING; Start 07/12/18 at 19:00; Stop 07/13/18 at 18:59 Zolpidem Tartrate (Ambien) 5 mg HS MAY REPEAT X 1 PRN PO INSOMNIA; Start 07/12/18 at 19:00; Stop 07/13/18 at 18:59 Sodium Chloride 1,000 ml @ 50 mls/hr Q20H IV Last administered on 07/13/18at 10:54; Admin Dose 50 MLS/HR; Start 07/13/18 at 10:00 CRAIG MCGEE MD Jul 13, 2018 11:37
[2018-07-13] MEDS ORDERED: FUROSEMIDE 20 MG INJ IV ONE (12:00)
--- NOTE | 2018-07-13 12:05 | QN ---
Documentation Comment POD # 1: Pt is feeling better VSS CBC stable still increased LFT, now at ICU secondary to decrease O2 saturation CXR likely viral pneumonia Plan continue with actigal Cardiac echo Repeat LBS Lovenox Incentive spitometer OOB RUQ sono F/O laborist regular diet Lasix 20 mg THAO BUCKNER M.D. Jul 13, 2018 12:05
[2018-07-13] MEDS: ENOXAPARIN 40 MG/0.4 ML SYG SC SCH (12:33)
[2018-07-13] MEDS: HYDROCODONE/APAP (5/325) TAB PO PRN ×2 (13:56→22:56)
[2018-07-13] MEDS ORDERED: HYDROCODONE/APAP (5/325) TAB PO PRN (14:00)
--- NOTE | 2018-07-13 14:21 | CONS ---
DATE OF ADMISSION: 07/11/2018 DATE OF CONSULTATION: 07/13/2018 TYPE OF CONSULTATION: Infectious disease. REASON FOR CONSULTATION: Antibiotic management. HISTORY OF PRESENT ILLNESS: Sandrine Moreno is a 28-year-old female who is para 0-1-0-1 currently 36 weeks and 5 days' , who presented to Dr. Buckner with 2 weeks of severe diffuse abdominal itching and feeling sick. She was sent to the hospital, had elevated AST and was found to be positiv e for influenza A. She was 2 cm dilated at that time, 80% effaced and was started on IV fluids. She was started on Tamiflu 75 b.i.d. She received her first dose of steroids for lung maturity on 07/10/2018 and was recommended that she have delivery secondary to severe cholestasis of w ith liver function test elevation. The patient was brought in for . The fetus had some tac hycardia. The patient was then induced and had her and then was transferred to the intensi ve care unit. She was seen by the hospitalist because of shortness of breath and hypoxemia. As note d, she was brought in for induction on 07/12/2018 for cholestasis of . Baby's heart rate be came tachycardic and this was converted to acute which occurred yesterday on 07/12/2018. T he patient had elevated temperature to 100.1, on Tamiflu and low dose IV fluids. PAST MEDICAL HISTORY: Operations as outlined. FAMILY HISTORY: Noncontributory. SOCIAL HISTORY: She does not smoke, drink or abuse drugs. ALLERGIES: NONE TO PENICILLIN, SULFA OR FOODS. MEDICATIONS: Per chart. REVIEW OF SYSTEMS: Noncontributory. PHYSICAL EXAMINATION: GENERAL: She is a well-developed, well-nourished female who is awake, responsive, in no acute distre ss. VITAL SIGNS: Stable. T-max is 100.1. SKIN: Without generalized rash. HEENT: Within normal limits. NECK: Supple. LYMPH NODES: None palpable. CHEST: Decreased breath sounds at the bases. HEART: Without murmur or gallop. ABDOMEN: Soft, somewhat distended, status post . EXTREMITIES: Without cyanosis, clubbing or edema. RECTAL AND GENITAL: Deferred. NEUROLOGIC: No new focal neurological abnormality. LABORATORY DATA: Her white count was 6.5, H and H of 8.5 and 26.3, platelet count 106,000. BUN and creatinine is 9/0.47. The patient was short of breath most likely secondary to influenza A. Chest x -ray showed signs of possible pulmonary vascular congestion versus pneumonia. An ABG performed today showed a pO2 of 83, pCO2 of 34, pH 7.42. IMPRESSION AND PLAN: We are trying to wean the patient off of a nonrebreather. She has elevated LFT s secondary to cholestasis. At the present time, the patient is stable in the intensive care unit. She is on appropriate medications. I will dictate my findings to the hospitalist and to Dr. Buckner. We will follow along in her care. Dictated By: JUAN A CHAN MD DIPTI/NTS Conf#: [id number] DID#: [id number] CC: LING ESCALANTE; THAO BUCKNER MD;*EndCC*
--- NOTE | 2018-07-13 17:24 | RADRPT ---
Echocardiogram Report Patient Name: ZACK HERNANDEZ Gender: Female Date: 1990 Study Date: 13-Jul-2018 Supervisor Solder Making: ELLIOT Location: I Height(Cm): 165 Weight(Kg): 89 BSA: 2.01 Ref. Physician: CRAIG MCGEE Quality: Technically Difficult Study Procedures: Transthoracic echocardiogram with complete 2D, M-Mode, and doppler examination. Indications: R/O Cardiomyopathy. 2D/M Mode Doppler Measurement Value Normal Ranges Measurement Value Normal Ranges LVIDd 2D 4.9 3.5 - 5.6 cm AV Peak Joe 1.2 m/sec LVIDs 2D 3.8 2.1 - 4.1 cm AV Peak PG 5.0 mmHg LVPWd 2D 0.7 0.6 - 1.1 cm LVOT Peak Joe 0.8 m/sec IVSd 2D 1.0 0.6 - 1.1 cm LVOT Peak PG 3.0 mmHg AoR Diam 2D 3.6 2.0 - 3.7 cm MV E Peak Oje 0.8 m/sec LA/Ao 2D 1 0 - 1 MV A Peak Joe 0.3 m/sec LA Dimen 2D 4.2 2.3 - 4.0 cm MV E/A 3.1 MV PHT 36.0 msec MV Decel Time 121 msec MV Decel [place] 6 Lat E` Joe 0.1 m/sec Lateral E/E` 5.8 Med E` Joe 0.1 m/sec MV E/A 3.1 MV PHT 36.0 msec MVA PHT 6.1 cm2 TR Peak Joe 2.0 m/sec TR Peak PG 17.0 mmHg PV Peak Joe 1.1 m/sec PV Peak PG 5.0 mmHg RVSP 27.0 mmHg Findings Left Ventricle: Lower limits of normal systolic function. Normal left ventricular cavity size. Left ventricle not well visualized. Normal left ventricular wall thickness. Ejection fraction is visually estimated at 50 %. Tissue Doppler/Mitral Doppler indices are within normal limits. E/E`=10. Right Ventricle: Normal right ventricular size. Left Atrium: There is mild enlargement of left atrium. Right Atrium: The right atrium is normal in size. Atrial Septum: Normal atrial septum. Ventricular septum: Normal/intact ventricular septum. Mitral Valve: Normal appearance of the mitral valve. Trace mitral regurgitation. Aortic Valve: Normal trileaflet aortic valve structure. Trace to mild aortic valve regurgitation. Tricuspid Valve: Normal appearance of the tricuspid valve. Estimated peak PA systolic pressure 27 mmHg. There is trace to mild tricuspid regurgitation. Pulmonic Valve: Pulmonic valve not well visualized. There is trace pulmonic regurgitation. Pericardium: Normal pericardium with no significant pericardial effusion. Pleural effusion seen. Aorta: Normal aortic root. IVC: Normal size and normal respiratory collapse consistent with normal right atrial pressure. Pulmonary Artery: Normal pulmonary artery size. Conclusions Lower limits of normal systolic function. Normal left ventricular cavity size. Left ventricle not well visualized. Normal left ventricular wall thickness. Ejection fraction is visually estimated at 50 %. Tissue Doppler/Mitral Doppler indices are within normal limits. E/E`=10. There is mild enlargement of left atrium. Normal appearance of the mitral valve. Trace mitral regurgitation. Normal trileaflet aortic valve structure. Trace to mild aortic valve regurgitation. Normal appearance of the tricuspid valve. Estimated peak PA systolic pressure 27 mmHg. There is trace to mild tricuspid regurgitation. Electronically Signed By: Chente Foster 13-Jul-2018 17:22:45 -0800 Patient Name: ZACK HERNANDEZ Study Date: 13-Jul-2018 [id number]
[2018-07-13] MEDS: IBUPROFEN 600 MG TAB PO SCH (18:44)
[2018-07-13] MEDS: PSEUDOEPHEDRINE 30 MG TAB PO PRN (21:07)
[2018-07-14] VITALS (22 sets, daily range): BP systolic 102–143; BP diastolic 69–103; PULSE 66–90; RESP 16–39
[2018-07-14] MEDS: IBUPROFEN 600 MG TAB PO SCH ×4 (01:17→17:45)
[2018-07-14] MEDS: CEPASTAT LOZENGE MT PRN ×3 (01:54→20:24)
[2018-07-14] MEDS: HYDROCODONE/APAP (5/325) TAB PO PRN ×2 (04:21→09:15)
[2018-07-14] MEDS: PRENATAL VITAMIN PO SCH (08:48)
[2018-07-14] MEDS: FERROUS SULFATE (EC) 325 MG TAB PO SCH (08:49)
[2018-07-14] MEDS: OSELTAMIVIR 75 MG CAP PO SCH ×2 (08:49→20:20)
[2018-07-14] MEDS: ENOXAPARIN 40 MG/0.4 ML SYG SC SCH (08:52)
--- NOTE | 2018-07-14 09:45 | CONS ---
Date/Time of Note Date/Time of Note DATE: 07/14/18 TIME: 09:43 Consult Date/Type/Reason Admit Date/Time Jul 11, 2018 at 21:22 Initial Consult Date 07/13/18 Type of Consultation: Pulmonary ICU Subjective Continues to improve FiO2 decreasing. Less shortness of breath but still with significant abdominal discomfort. No nausea no vomiting increase p.o. intake. Objective Vital Signs Date Temp Pulse Resp B/P (MAP) Pulse Ox O2 O2 Flow FiO2 Time Delivery Rate 07/14/18 97.9 70 18 129/69 97 Nasal 6.0 08:45 (89) Cannula 07/14/18 40 02:27 Intake and Output 07/13/18 07/13/18 07/14/18 1515:00 23:00 07:00 IntakeIntake Total 1350 ml 60 ml 300 ml OutputOutput Total 940 ml 720 ml 365 ml BalanceBalance 410 ml -660 ml -65 ml Exam GENERAL: Well-nourished well-developed lady comfortable at rest VITAL SIGNS: per chart NECK: Supple. No JVD or lymphadenopathy. CARDIAC EXAM: S1, S2. No added sounds or murmurs. CHEST: clear bilaterally, No added sounds, rales or wheezes ABDOMEN: Soft, nontender. No guarding or rebound. EXTREMITIES: No cyanosis, clubbing or edema. NEUROLOGIC: Generalized weakness. No focal deficits. Results/Medications Result Diagram: 07/14/18 0507 07/14/18 0507 Results 24 hrs Laboratory Tests Test 07/14/18 05:07 White Blood Count 5.5 Red Blood Count 3.27 L Hemoglobin 9.2 L Hematocrit 28.6 L Mean Corpuscular Volume 87.5 Mean Corpuscular Hemoglobin 28.1 L Mean Corpuscular Hemoglobin Concent 32.2 Red Cell Distribution Width 14.0 Platelet Count 127 L Mean Platelet Volume 13.7 H Immature Granulocytes % 2.000 H Neutrophils % 74.1 Lymphocytes % 20.4 Monocytes % 3.1 Eosinophils % 0.2 Basophils % 0.2 Nucleated Red Blood Cells % 0.5 H Immature Granulocytes # 0.110 H Neutrophils # 4.1 Lymphocytes # 1.1 Monocytes # 0.2 L Eosinophils # 0.0 Basophils # 0.0 Nucleated Red Blood Cells # 0.0 Sodium Level 141 Potassium Level 3.9 Chloride Level 109 Carbon Dioxide Level 24 Anion Gap 8 Blood Urea Nitrogen 13 Creatinine 0.50 Est Glomerular Filtrat Rate mL/min > 60 Glucose Level 75 Calcium Level 8.0 L Phosphorus Level 4.7 Magnesium Level 1.7 Total Bilirubin 0.0 L Direct Bilirubin 0.00 Indirect Bilirubin 0.0 Aspartate Amino Transf (AST/SGOT) 714 H Alanine Aminotransferase (ALT/SGPT) 147 H Alkaline Phosphatase 94 Total Protein 4.8 L Albumin 2.2 L Globulin 2.60 Albumin/Globulin Ratio 0.84 Medications Current Medications Prenat Multivit/ [place]/Iron/Folic Ac () 1 tab DAILY PO Last administered on 07/14/18 08:48; Admin Dose 1 TAB; Start 07/12/18 at 09:00 Ferrous Sulfate (Ferrous Sulfate (Ec)) 325 mg DAILY PO Last administered on 07/14/18 08:49; Admin Dose 325 MG; Start 07/12/18 at 09:00 Phenol (Cepastat Lozenge) 1 lozenge Q1H PRN MT COUGH Last administered on 07/14/18 01:54; Admin Dose 1 LOZENGE; Start 07/11/18 at 22:30 Oseltamivir Phosphate (Tamiflu) 75 mg BID PO Last administered on 07/14/18 08:49; Admin Dose 75 MG; Start 07/12/18 at 00:00; Stop 07/16/18 at 09:01 Terbutaline Sulfate (Brethine) 0.25 mg ONCE PRN SC CONTRACTIONS Last administered on 07/12/18 03:20; Admin Dose 0.25 MG; Start 07/12/18 at 01:30 Oxytocin/Lactated Ringer's 500 ml @ 0 mls/hr FOR AUGMENTATION IV Last administered on 07/12/18 14:02; Admin Dose 2 MLS/HR; Start 07/12/18 at 12:30 Oxytocin/Lactated Ringer's 500 ml @ 500 mls/hr ONCE POST IV Last administered on 07/12/18 19:23; Admin Dose 500 MLS/HR; Start 07/12/18 at 13:00 Oxytocin/Lactated Ringer's 500 ml @ 125 mls/hr POST IV ; Start 07/12/18 at 13:00 Ibuprofen (Motrin) 600 mg ONCE PRN PO PAIN LEVEL 1-5; Start 07/12/18 at 13:00 Oxycodone/Aspirin (Percodan) 2 tab ONCE PRN PO PAIN LEVEL 6-10; Start 07/12/18 at 13:00 Oxytocin/Lactated Ringer's 500 ml @ 0 mls/hr ONCE PRN IV VAGINAL BLEEDING; Start 07/12/18 at 17:30 IV Flush (NS 3 ml) 3 ml PER PROTOCOL IV ; Start 07/12/18 at 17:30 Acetaminophen/ Hydrocodone Bitart ([place] (5/325)) 2 tab Q4H PRN PO PAIN LEVEL 7-10 Last administered on 07/14/18at 09:15; Admin Dose 2 TAB; Start 07/12/18 at 17:30 Ibuprofen (Motrin) 600 mg Q6 PO Last administered on 07/14/18at 05:58; Admin Dose 600 MG; Start 07/13/18 at 18:00 Oxytocin/Lactated Ringer's 500 ml @ 0 mls/hr ONCE PRN IV VAGINAL BLEEDING; Start 07/12/18 at 17:30 Methylergonovine Maleate (Methergine) 0.2 mg ONCE PRN IM VAGINAL BLEEDING; Start 07/12/18 at 17:30 Carboprost Tromethamine (Hemabate) 250 mcg ONCE PRN IM VAGINAL BLEEDING; Start 07/12/18 at 17:30 Misoprostol (Cytotec) 1,000 mcg ONCE PRN [place] VAGINAL BLEEDING; Start 07/12/18 at 17:30 Enoxaparin Sodium (Lovenox) 40 mg DAILY SC Last administered on 07/14/18at 08:52; Admin Dose 40 MG; Start 07/13/18 at 12:00 Acetaminophen/ Hydrocodone Bitart ([place] (5/325)) 1 tab Q4H PRN PO MODERATE PAIN LEVEL 4-6; Start 07/13/18 at 14:00 Pseudoephedrine HCl (Sudogest) 30 mg Q4H PRN PO COUGH Last administered on 07/13/18at 21:07; Admin Dose 30 MG; Start 07/13/18 at 20:00 Assessment/Plan Chief Complaint/Hosp Course IMP: 1. Hypoxemic Respiratory Insufficiency--in a patient post- with Influenza A and CXR with B/L ground glass opacities and mild congestion. This likely represents a viral pneumonia, though other considerations include Dennis's Syndrome (aspiration pneumonitis in ) and less likely post- cardiomyopathy. Evidence of CHF slowly improving. 2. Elevated LFTs/cholestasis of 3. Status post : Postop day #2 4. Thrombocytopenia 5, Anemia RECS: 1. Stable for transfer to telemetry 2. Titrate O2 as tolerated 3. Continue Tamiflu 4. RUQ U/S 5. D/C IVFs 6. ECHO 7. Lovenox for VTE prophylaxis 8. Incentive spirometry 9. Gentle diuresis 10. Encourage out of bed Critical care time 40 minutes. EFFIE BE MD, [facility] Jul 14, 2018 09:45
[2018-07-14] MEDS ORDERED: ACETAMINOPHEN 500 MG TAB PO PRN (10:30)
[2018-07-14] MEDS ORDERED: DIPHENHYDRAMINE 50 MG INJ IV PRN (10:30)
[2018-07-14] MEDS ORDERED: NALOXONE (0.4 MG/ML) INJ IV PRN (10:30)
[2018-07-14] MEDS ORDERED: ZOLPIDEM 5 MG TAB PO PRN (10:30)
[2018-07-14] MEDS ORDERED: ONDANSETRON 4 MG INJ IV PRN (10:30)
[2018-07-14] MEDS ORDERED: HYDROmorphONE 1 MG/ML SYG IV PRN (10:30)
[2018-07-14] MEDS ORDERED: SOD CHLORIDE 0.9% 100 ML ONE (12:29)
[2018-07-14] MEDS ORDERED: IOHEXOL 300MG/ML 150 ML BTL ONE (12:29)
--- NOTE | 2018-07-14 13:06 | QN ---
Documentation Comment POD #2 Pt is habig abd tenderness could not void for 6 hours. Did not pass gerry not ambulating. mild vag lochia VSS with elevated LFT RUQ sono c/w fluid around the gallbladder my be related to post op related fluid vs gallbladder pathology Exam cw mild tender abdomen no surgical INC healing well + Bowel sound Plan continue per Hospitalist Repeat labs with amylase and lipase ABd CT Reinsert thao OOB Start on simethicone Increase dilaudid to 1 mg Q 2hours PRN Dr. Gaytan will get GI involve as well THAO BUCKNER M.D. Jul 14, 2018 13:06
[2018-07-14] MEDS: HYDROmorphONE 1 MG/ML SYG IV PRN ×3 (13:14→21:14)
--- NOTE | 2018-07-14 15:49 | CONS ---
Date/Time of Note Date/Time of Note DATE: 07/14/18 TIME: 15:47 Assessment/Plan Assessment/Plan Hospital Course Patient is alert comfortable on nasal cannula, complaining of abdominal pain no fevers overnight WBC today 5.5 platelets 127 BUN 13 creatinine 0.50 Chest x-ray this morning revealed mild cardiomegaly with worsening pulmonary vascular congestion. Microbiology: Influenza A positive Antimicrobials: Tamiflu Physical examination: Well-developed obese middle-aged woman who is alert in no distress. Head atraumatic normocephalic sclera nonicteric. Neck is obese. Chest rise symmetrical breath sounds diminished bases. Heart: S1-S2. Abdomen obese soft with some tenderness on palpation. Bowel tones present. Extremities without cyanosis. Assessment: 1. Acute hypoxemic respiratory insufficiency secondary to #2 2. Influenza A virus 3. Transaminitis 4. 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 Result Diagram: 07/14/18 0507 07/14/18 0507 Results 24hrs Laboratory Tests Test 07/14/18 05:07 07/14/18 13:44 White Blood Count 5.5 Red Blood Count 3.27 L Hemoglobin 9.2 L Hematocrit 28.6 L Mean Corpuscular Volume 87.5 Mean Corpuscular Hemoglobin 28.1 L Mean Corpuscular Hemoglobin Concent 32.2 Red Cell Distribution Width 14.0 Platelet Count 127 L Mean Platelet Volume 13.7 H Immature Granulocytes % 2.000 H Neutrophils % 74.1 Lymphocytes % 20.4 Monocytes % 3.1 Eosinophils % 0.2 Basophils % 0.2 Nucleated Red Blood Cells % 0.5 H Immature Granulocytes # 0.110 H Neutrophils # 4.1 Lymphocytes # 1.1 Monocytes # 0.2 L Eosinophils # 0.0 Basophils # 0.0 Nucleated Red Blood Cells # 0.0 Sodium Level 141 Potassium Level 3.9 Chloride Level 109 Carbon Dioxide Level 24 Anion Gap 8 Blood Urea Nitrogen 13 Creatinine 0.50 Est Glomerular Filtrat Rate mL/min > 60 Glucose Level 75 Calcium Level 8.0 L Phosphorus Level 4.7 Magnesium Level 1.7 Total Bilirubin 0.0 L Direct Bilirubin 0.00 Indirect Bilirubin 0.0 Aspartate Amino Transf (AST/SGOT) 783 H Alanine Aminotransferase (ALT/SGPT) 147 H Alkaline Phosphatase 94 Total Protein 4.8 L Albumin 2.2 L Globulin 2.60 Albumin/Globulin Ratio 0.84 Amylase Level 90 Lipase 187 Consultation Date/Type/Reason Admit Date/Time Jul 11, 2018 at 21:22 Initial Consult Date 07/13/18 Type of Consult id Exam/Review of Systems Vital Signs Vitals Vital Signs Date Temp Pulse Resp B/P (MAP) Pulse Ox O2 O2 Flow FiO2 Time Delivery Rate 07/14/18 73 12:00 07/14/18 4.0 12:00 07/14/18 97.7 26 143/82 92 Nasal 12:00 (102) Cannula 07/14/18 40 02:27 Intake and Output 07/13/18 07/13/18 07/14/18 1515:00 23:00 07:00 IntakeIntake Total 1350 ml 60 ml 300 ml OutputOutput Total 940 ml 720 ml 365 ml BalanceBalance 410 ml -660 ml -65 ml Medications Medications Current Medications Prenat Multivit/ [place]/Iron/Folic Ac () 1 tab DAILY PO Last administered on 07/14/18at 08:48; Admin Dose 1 TAB; Start 07/12/18 at 09:00 Ferrous Sulfate (Ferrous Sulfate (Ec)) 325 mg DAILY PO Last administered on 07/14/18at 08:49; Admin Dose 325 MG; Start 07/12/18 at 09:00 Phenol (Cepastat Lozenge) 1 lozenge Q1H PRN MT COUGH Last administered on 07/14/18at 01:54; Admin Dose 1 LOZENGE; Start 07/11/18 at 22:30 Oseltamivir Phosphate (Tamiflu) 75 mg BID PO Last administered on 07/14/18at 08:49; Admin Dose 75 MG; Start 07/12/18 at 00:00; Stop 07/16/18 at 09:01 Terbutaline Sulfate (Brethine) 0.25 mg ONCE PRN SC CONTRACTIONS Last administered on 07/12/18 03:20; Admin Dose 0.25 MG; Start 07/12/18 at 01:30 Oxytocin/Lactated Ringer's 500 ml @ 0 mls/hr FOR AUGMENTATION IV Last administered on 07/12/18at 14:02; Admin Dose 2 MLS/HR; Start 07/12/18 at 12:30 Oxytocin/Lactated Ringer's 500 ml @ 0 mls/hr ONCE PRN IV VAGINAL BLEEDING; Start 07/12/18 at 17:30 IV Flush (NS 3 ml) 3 ml PER PROTOCOL IV ; Start 07/12/18 at 17:30 Acetaminophen/ Hydrocodone Bitart ([place] (5/325)) 2 tab Q4H PRN PO PAIN LEVEL 7-10 Last administered on 07/14/18at 09:15; Admin Dose 2 TAB; Start 07/12/18 at 17:30 Ibuprofen (Motrin) 600 mg Q6 PO Last administered on 07/14/18at 13:15; Admin Dose 600 MG; Start 07/13/18 at 18:00 Oxytocin/Lactated Ringer's 500 ml @ 0 mls/hr ONCE PRN IV VAGINAL BLEEDING; Start 07/12/18 at 17:30 Methylergonovine Maleate (Methergine) 0.2 mg ONCE PRN IM VAGINAL BLEEDING; Start 07/12/18 at 17:30 Carboprost Tromethamine (Hemabate) 250 mcg ONCE PRN IM VAGINAL BLEEDING; Start 07/12/18 at 17:30 Misoprostol (Cytotec) 1,000 mcg ONCE PRN [place] VAGINAL BLEEDING; Start 07/12/18 at 17:30 Enoxaparin Sodium (Lovenox) 40 mg DAILY SC Last administered on 07/14/18at 08:52; Admin Dose 40 MG; Start 07/13/18 at 12:00 Pseudoephedrine HCl (Sudogest) 30 mg Q4H PRN PO COUGH Last administered on 07/13/18at 21:07; Admin Dose 30 MG; Start 07/13/18 at 20:00 Furosemide (Lasix) 20 mg DAILY IV ; Start 07/15/18 at 09:00 Naloxone HCl (Narcan) 0.1 mg Q2M PRN IV DECREASED REPIRATORY RATE; Start 07/14/18 at 10:30; Stop 07/15/18 at 10:29 Diphenhydramine HCl (Benadryl) 25 mg Q6H PRN IV ITCHING; Start 07/14/18 at 10:30; Stop 07/15/18 at 10:29 Ondansetron HCl (Zofran Inj) 4 mg Q6H PRN IV NAUSEA AND/OR VOMITING; Start 07/14/18 at 10:30; Stop 07/15/18 at 10:29 Zolpidem Tartrate (Ambien) 5 mg HS MAY REPEAT X 1 PRN PO INSOMNIA; Start 07/14/18 at 10:30; Stop 07/15/18 at 10:29 Hydromorphone HCl (Dilaudid) 1 mg Q2 PRN IV BREAKTHROUGH PAIN Last administered on 07/14/18at 13:14; Admin Dose 1 MG; Start 07/14/18 at 13:00 Simethicone (Mylicon) 80 mg Q6 PO ; Start 07/14/18 at 18:00 CYNDY MELARA NP Jul 14, 2018 15:49
--- NOTE | 2018-07-14 17:35 | PN ---
Date/Time of Note Date/Time of Note DATE: 07/14/18 TIME: 17:31 Assessment/Plan VTE Prophylaxis Risk score (from Nsg)>0 risk: 3 SCD applied (from Nsg): Yes Pharmacological prophylaxis: LMWH Lines/Catheters IV Catheter Type (from Nrsg): Saline Lock Urinary Cath still in place: Yes Reason Cath still needed: other (indicate) (per OB) Assessment/Plan Assessment/Plan 28-year-old female status post , positive influenza A, cholestasis of , HPV, who was transferred to the ICU after with elevated temperatures, hypoxia and shortness of breath. # Shortness of breath hypoxia: Symptoms likely due to + influenza A, which was diagnosed in the last 24 hours. Patient has been on Tamiflu for the last 24 hours. Chest x-ray does show signs of possible pulmonary vascular congestion versus pneumonia. -Continue care in the intensive care unit for now - Patient now on nasal cannula -continue Tamiflu -Motrin and perhaps Percodan as needed for pain fevers # Elevated LFTs/cholestasis of : - AST ALT mid 100-200 range on admission. Of note patient was on Actigall before delivery. - After C section they continue to uptrend. AST now 700s. -We will hold off on [place] and Tylenol for now as we continue to monitor and trend her liver enzymes - Ampicillin (now discontinued) and oseltamivir have both been associated in some cases with increased liver enzymes. - Sent viral hepatitis panel, autoimmune hepatitis panel. - Consulted GI. # Status post : Postop day #2 -Continue post delivery care for DIRECTOR OF CARDIOLOGY SERVICE LINE recommendations -Multivitamin, iron #Thrombocytopenia: Possibly secondary to . No signs of any bleeding. -Monitor CBC daily, hold off on any anticoagulants. #Urinary obstruction. - Per OB orders, thao catheter was replaced after 6 hour trial of void. - Further thao management per OB. Result Diagram: 07/14/18 0507 07/14/18 0507 Results 24hrs Laboratory Tests Test 07/14/18 05:07 07/14/18 13:44 White Blood Count 5.5 Red Blood Count 3.27 L Hemoglobin 9.2 L Hematocrit 28.6 L Mean Corpuscular Volume 87.5 Mean Corpuscular Hemoglobin 28.1 L Mean Corpuscular Hemoglobin Concent 32.2 Red Cell Distribution Width 14.0 Platelet Count 127 L Mean Platelet Volume 13.7 H Immature Granulocytes % 2.000 H Neutrophils % 74.1 Lymphocytes % 20.4 Monocytes % 3.1 Eosinophils % 0.2 Basophils % 0.2 Nucleated Red Blood Cells % 0.5 H Immature Granulocytes # 0.110 H Neutrophils # 4.1 Lymphocytes # 1.1 Monocytes # 0.2 L Eosinophils # 0.0 Basophils # 0.0 Nucleated Red Blood Cells # 0.0 Sodium Level 141 Potassium Level 3.9 Chloride Level 109 Carbon Dioxide Level 24 Anion Gap 8 Blood Urea Nitrogen 13 Creatinine 0.50 Est Glomerular Filtrat Rate mL/min > 60 Glucose Level 75 Calcium Level 8.0 L Phosphorus Level 4.7 Magnesium Level 1.7 Total Bilirubin 0.0 L Direct Bilirubin 0.00 Indirect Bilirubin 0.0 Aspartate Amino Transf (AST/SGOT) 783 H Alanine Aminotransferase (ALT/SGPT) 147 H Alkaline Phosphatase 94 Total Protein 4.8 L Albumin 2.2 L Globulin 2.60 Albumin/Globulin Ratio 0.84 Amylase Level 90 Lipase 187 Exam/Review of Systems Vital Signs Vitals Vital Signs Date Temp Pulse Resp B/P (MAP) Pulse Ox O2 O2 Flow FiO2 Time Delivery Rate 07/14/18 97.9 79 22 132/102 96 Nasal 2.0 16:00 (112) Cannula 07/14/18 40 02:27 Intake and Output 07/13/18 07/13/18 07/14/18 1515:00 23:00 07:00 IntakeIntake Total 1350 ml 60 ml 300 ml OutputOutput Total 940 ml 720 ml 365 ml BalanceBalance 410 ml -660 ml -65 ml Medications Medications Current Medications Prenat Multivit/ [place]/Iron/Folic Ac () 1 tab DAILY PO Last administered on 07/14/18at 08:48; Admin Dose 1 TAB; Start 07/12/18 at 09:00 Ferrous Sulfate (Ferrous Sulfate (Ec)) 325 mg DAILY PO Last administered on 07/14/18at 08:49; Admin Dose 325 MG; Start 07/12/18 at 09:00 Phenol (Cepastat Lozenge) 1 lozenge Q1H PRN MT COUGH Last administered on 07/14/18at 16:19; Admin Dose 1 LOZENGE; Start 07/11/18 at 22:30 Oseltamivir Phosphate (Tamiflu) 75 mg BID PO Last administered on 07/14/18 08:49; Admin Dose 75 MG; Start 07/12/18 at 00:00; Stop 07/16/18 at 09:01 Terbutaline Sulfate (Brethine) 0.25 mg ONCE PRN SC CONTRACTIONS Last adm inistered on 07/12/18at 03:20; Admin Dose 0.25 MG; Start 07/12/18 at 01:30 Oxytocin/Lactated Ringer's 500 ml @ 0 mls/hr FOR AUGMENTATION IV Last administered on 07/12/18 14:02; Admin Dose 2 MLS/HR; Start 07/12/18 at 12:30 Oxytocin/Lactated Ringer's 500 ml @ 0 mls/hr ONCE PRN IV VAGINAL BLEEDING; Start 07/12/18 at 17:30 IV Flush (NS 3 ml) 3 ml PER PROTOCOL IV ; Start 07/12/18 at 17:30 Acetaminophen/ Hydrocodone Bitart ([place] (5/325)) 2 tab Q4H PRN PO PAIN LEVEL 7-10 Last administered on 07/14/18 09:15; Admin Dose 2 TAB; Start 07/12/18 at 17:30 Ibuprofen (Motrin) 600 mg Q6 PO Last administered on 07/14/18 13:15; Admin Dose 600 MG; Start 07/13/18 at 18:00 Oxytocin/Lactated Ringer's 500 ml @ 0 mls/hr ONCE PRN IV VAGINAL BLEEDING; Start 07/12/18 at 17:30 Methylergonovine Maleate (Methergine) 0.2 mg ONCE PRN IM VAGINAL BLEEDING; Start 07/12/18 at 17:30 Carboprost Tromethamine (Hemabate) 250 mcg ONCE PRN IM VAGINAL BLEEDING; Start 07/12/18 at 17:30 Misoprostol (Cytotec) 1,000 mcg ONCE PRN [place] VAGINAL BLEEDING; Start 07/12/18 at 17:30 Enoxaparin Sodium (Lovenox) 40 mg DAILY SC Last administered on 07/14/18 08:52; Admin Dose 40 MG; Start 07/13/18 at 12:00 Pseudoephedrine HCl (Sudogest) 30 mg Q4H PRN PO COUGH Last administered on 07/13/18 21:07; Admin Dose 30 MG; Start 07/13/18 at 20:00 Furosemide (Lasix) 20 mg DAILY IV ; Start 07/15/18 at 09:00 Naloxone HCl (Narcan) 0.1 mg Q2M PRN IV DECREASED REPIRATORY RATE; Start 07/14/18 at 10:30; Stop 07/15/18 at 10:29 Diphenhydramine HCl (Benadryl) 25 mg Q6H PRN IV ITCHING; Start 07/14/18 at 10:30; Stop 07/15/18 at 10:29 Ondansetron HCl (Zofran Inj) 4 mg Q6H PRN IV NAUSEA AND/OR VOMITING; Start 07/14/18 at 10:30; Stop 07/15/18 at 10:29 Zolpidem Tartrate (Ambien) 5 mg HS MAY REPEAT X 1 PRN PO INSOMNIA; Start 07/14/18 at 10:30; Stop 07/15/18 at 10:29 Hydromorphone HCl (Dilaudid) 1 mg Q2 PRN IV BREAKTHROUGH PAIN Last administered on 07/14/18at 16:27; Admin Dose 1 MG; Start 07/14/18 at 13:00 Simethicone (Mylicon) 80 mg Q6 PO ; Start 07/14/18 at 18:00 ENOCH VORA MD Jul 14, 2018 17:35
[2018-07-14] MEDS: PSEUDOEPHEDRINE 30 MG TAB PO PRN (20:24)
[2018-07-15] VITALS (18 sets, daily range): BP systolic 91–144; BP diastolic 47–111; PULSE 68–113; RESP 14–31
[2018-07-15] MEDS: IBUPROFEN 600 MG TAB PO SCH ×4 (00:57→20:18)
[2018-07-15] MEDS: HYDROmorphONE 1 MG/ML SYG IV PRN ×5 (01:06→22:12)
--- NOTE | 2018-07-15 01:07 | CONS ---
DATE OF ADMISSION: 07/11/2018 DATE OF CONSULTATION: 07/14/2018 The patient is status post postop day #2 secondary to cholestasis with very elevated liver enzyme. In addition, she did have flu-like symptoms including fever and swab came back positive. I was called by Dr. Buckner this morning that the liver enzymes have been elevated almost twice as bef ore and they are in the 700 range and the AST and ALT is high. I do not remember currently, but abou t like 100 or 200. Regardless, they are more elevated than prior to surgery. It is important to not e that apparently yesterday, the patient started to have desaturation of oxygen. Chest x-ray shows e vidence of pneumonia. She was brought into ICU and currently, she is feeling better in that sense bu t with no fever. Blood pressures have been in the normal range. Platelets, they were originally in about 130 to 140, dropped to 106 and then 126 currently. Her creatinine is normal. In terms of differential diagnosis, currently elevated liver enzymes secon jaquelin to influenza or worsening of the liver enzymes, cholestasis of which does occur and ca n occur 2 weeks after delivery. The patient was given [place] which could have exacerbated her liver enzyme elevation. She does not me et the criteria for any type of preeclampsia even though her liver enzymes are high and her platelets are lower than her normal; however her starting platelets were not very high to begin with and in ge neral in the absence of elevated blood pressure with negative protein in the urine, diagnosis of pree clampsia or HELLP is not likely. Having said that, liver enzymes are elevated, platelets were low, so the diagnosis might have some me aning; however she is day #2. Abdominal ultrasound showed some fluid collection next to the gallbladder which could be secondary to effects after , but regardless, CT scan will be done to assess her pancreas, gallbladder; e ssentially gallbladder disease or pancreatitis. If her CT scan comes back normal without any evidenc e of gallbladder disease or pancreatitis and her platelet count continues to be elevated, I do recomm end magnesium sulfate at least for 24 hours. Do not give Tylenol. I have been consulted. Autoimmune hepatitis after flu should be considered as part of the diagnosis. The patient definitely should remain in the ICU. Repeat labs tomorrow and order amylase and lipase. I spoke to Dr. Ayalon this morning when I saw the patient as well as the ICU physician and I will follow the patient with you. Dictated By: RANDA CONNER MD [facility] Conf#: [id number] DID#: [id number] CC: ENOCH VORA MD; THAO BUCKNER MD;*EndCC*
[2018-07-15] MEDS: CEPASTAT LOZENGE MT PRN ×2 (03:29→22:24)
[2018-07-15] MEDS: FERROUS SULFATE (EC) 325 MG TAB PO SCH (08:51)
[2018-07-15] MEDS: PRENATAL VITAMIN PO SCH (08:51)
[2018-07-15] MEDS: FUROSEMIDE 20 MG INJ IV SCH (08:52)
[2018-07-15] MEDS: OSELTAMIVIR 75 MG CAP PO SCH ×2 (08:52→20:18)
[2018-07-15] MEDS: ENOXAPARIN 40 MG/0.4 ML SYG SC SCH (09:04)
--- NOTE | 2018-07-15 09:54 | CONS ---
Date/Time of Note Date/Time of Note DATE: 07/15/18 TIME: 09:51 Consult Date/Type/Reason Admit Date/Time Jul 11, 2018 at 21:22 Initial Consult Date 07/13/18 Type of Consultation: Pulmonary ICU Subjective Patient comfortable this morning. Denies shortness of breath still has pain in her abdomen but no nausea no vomiting. Objective Vital Signs Date Temp Pulse Resp B/P (MAP) Pulse Ox O2 O2 Flow FiO2 Time Delivery Rate 07/15/18 85 08:00 07/15/18 15 119/94 95 Nasal 3.0 08:00 (102) Cannula 07/15/18 98.1 03:00 07/14/18 40 02:27 Intake and Output 07/14/18 07/14/18 07/15/18 1515:00 23:00 07:00 IntakeIntake Total 420 ml 480 ml 480 ml OutputOutput Total 465 ml 465 ml 250 ml BalanceBalance -45 ml 15 ml 230 ml Exam GENERAL: Well-nourished well-developed lady comfortable at rest VITAL SIGNS: per chart NECK: Supple. No JVD or lymphadenopathy. CARDIAC EXAM: S1, S2. No added sounds or murmurs. CHEST: clear bilaterally, No added sounds, rales or wheezes ABDOMEN: Diminished bowel sounds tender but no guarding or rebound EXTREMITIES: No cyanosis, clubbing or edema. NEUROLOGIC: Generalized weakness. No focal deficits. Results/Medications Result Diagram: 07/15/18 0614 07/15/18 0614 Results 24 hrs Laboratory Tests Test 07/14/18 13:44 07/15/18 06:14 Amylase Level 90 72 Lipase 187 125 White Blood Count 7.8 # Red Blood Count 3.64 L Hemoglobin 10.3 L Hematocrit 31.9 L Mean Corpuscular Volume 87.6 Mean Corpuscular Hemoglobin 28.3 L Mean Corpuscular Hemoglobin Concent 32.3 Red Cell Distribution Width 13.7 Platelet Count 166 # Mean Platelet Volume 13.1 H Immature Granulocytes % 1.400 H Neutrophils % 77.1 H Lymphocytes % 16.9 Monocytes % 4.0 Eosinophils % 0.3 Basophils % 0.3 Nucleated Red Blood Cells % 0.9 H Immature Granulocytes # 0.110 H Neutrophils # 6.0 Lymphocytes # 1.3 Monocytes # 0.3 Eosinophils # 0.0 Basophils # 0.0 Nucleated Red Blood Cells # 0.1 H Prothrombin Time 11.5 L Prothrombin Time Ratio 0.9 INR International Normalized Ratio 0.83 Activated Partial Thromboplast Time 36.5 H Fibrinogen 324.0 Sodium Level 138 Potassium Level 3.7 Chloride Level 109 Carbon Dioxide Level 24 Anion Gap 5 Blood Urea Nitrogen 11 Creatinine 0.45 Est Glomerular Filtrat Rate mL/min > 60 Glucose Level 76 Lactic Acid Level 1.0 Calcium Level 8.0 L Phosphorus Level 5.0 H Magnesium Level 1.7 Total Bilirubin 0.0 L Direct Bilirubin 0.00 Indirect Bilirubin 0.0 Aspartate Amino Transf (AST/SGOT) 459 H Alanine Aminotransferase (ALT/SGPT) 120 H Alkaline Phosphatase 115 Ammonia 15 Total Protein 5.0 L Albumin 2.4 L Globulin 2.60 Albumin/Globulin Ratio 0.92 Hepatitis B Surface Antibody NEGATIVE Hepatitis B Core Total Antibody NEGATIVE Hepatitis C Antibody NEGATIVE Medications Current Medications Prenat Multivit/ [place]/Iron/Folic Ac () 1 tab DAILY PO Last administer ed on 07/15/18 08:51; Admin Dose 1 TAB; Start 07/12/18 at 09:00 Ferrous Sulfate (Ferrous Sulfate (Ec)) 325 mg DAILY PO Last administered on 07/15/18 08:51; Admin Dose 325 MG; Start 07/12/18 at 09:00 Phenol (Cepastat Lozenge) 1 lozenge Q1H PRN MT COUGH Last administered on 07/15/18 03:29; Admin Dose 1 LOZENGE; Start 07/11/18 at 22:30 Oseltamivir Phosphate (Tamiflu) 75 mg BID PO Last administered on 07/15/18 08:52; Admin Dose 75 MG; Start 07/12/18 at 00:00; Stop 07/16/18 at 09:01 Terbutaline Sulfate (Brethine) 0.25 mg ONCE PRN SC CONTRACTIONS Last administered on 07/12/18 03:20; Admin Dose 0.25 MG; Start 07/12/18 at 01:30 Oxytocin/Lactated Ringer's 500 ml @ 0 mls/hr FOR AUGMENTATION IV Last admi nistered on 07/12/18 14:02; Admin Dose 2 MLS/HR; Start 07/12/18 at 12:30 Oxytocin/Lactated Ringer's 500 ml @ 0 mls/hr ONCE PRN IV VAGINAL BLEEDING; Start 07/12/18 at 17:30 IV Flush (NS 3 ml) 3 ml PER PROTOCOL IV ; Start 07/12/18 at 17:30 Acetaminophen/ Hydrocodone Bitart ([place] (5/325)) 2 tab Q4H PRN PO PAIN LEVEL 7-10 Last administered on 07/14/18at 09:15; Admin Dose 2 TAB; Start 07/12/18 at 17:30 Ibuprofen (Motrin) 600 mg Q6 PO Last administered on 07/15/18at 06:07; Admin Dose 600 MG; Start 07/13/18 at 18:00 Oxytocin/Lactated Ringer's 500 ml @ 0 mls/hr ONCE PRN IV VAGINAL BLEEDING; Start 07/12/18 at 17:30 Methylergonovine Maleate (Methergine) 0.2 mg ONCE PRN IM VAGINAL BLEEDING; Start 07/12/18 at 17:30 Carboprost Tromethamine (Hemabate) 250 mcg ONCE PRN IM VAGINAL BLEEDING; Start 07/12/18 at 17:30 Misoprostol (Cytotec) 1,000 mcg ONCE PRN [place] VAGINAL BLEEDING; Start 07/12/18 at 17:30 Enoxaparin Sodium (Lovenox) 40 mg DAILY SC Last administered on 07/15/18at 09:04; Admin Dose 40 MG; Start 07/13/18 at 12:00 Pseudoephedrine HCl (Sudogest) 30 mg Q4H PRN PO COUGH Last administered on 07/14/18at 20:24; Admin Dose 30 MG; Start 07/13/18 at 20:00 Furosemide (Lasix) 20 mg DAILY IV Last administered on 07/15/18at 08:52; Admin Dose 20 MG; Start 07/15/18 at 09:00 Naloxone HCl (Narcan) 0.1 mg Q2M PRN IV DECREASED REPIRATORY RATE; Start 07/14/18 at 10:30; Stop 07/15/18 at 10:29 Diphenhydramine HCl (Benadryl) 25 mg Q6H PRN IV ITCHING; Start 07/14/18 at 10:30; Stop 07/15/18 at 10:29 Ondansetron HCl (Zofran Inj) 4 mg Q6H PRN IV NAUSEA AND/OR VOMITING; Start 07/14/18 at 10:30; Stop 07/15/18 at 10:29 Zolpidem Tartrate (Ambien) 5 mg HS MAY REPEAT X 1 PRN PO INSOMNIA; Start 07/14/18 at 10:30; Stop 07/15/18 at 10:29 Hydromorphone HCl (Dilaudid) 1 mg Q2 PRN IV BREAKTHROUGH PAIN Last administered on 07/15/18at 08:53; Admin Dose 1 MG; Start 07/14/18 at 13:00 Simethicone (Mylicon) 80 mg Q6 PO Last administered on 07/15/18at 06:07; Admin Dose 80 MG; Start 07/14/18 at 18:00 Assessment/Plan Chief Complaint/Hosp Course Impression 1. Hypoxemic Respiratory Insufficiency--in a patient post- with Influenza A and CXR with B/L ground glass opacities and mild congestion. This likely r epresents a viral pneumonia, though other considerations include Dennis's Syndrome (aspiration pneumonitis in ) and less likely post- cardiomyopathy. Evidence of CHF slowly improving. Improving oxygenation today. 2. Elevated LFTs/cholestasis of , improving transaminitis. 3. Status post : Postop day #3 4. Thrombocytopenia improved 5, Anemia stable RECS: 1. Stable for transfer to telemetry/maternity 2. Titrate O2 as tolerated 3. Continue Tamiflu 4. Consider GI evaluation 5. D/C IVFs 6. Encourage out of bed 7. Continue incentive spirometry Critical care time 40 minutes. EFFIE BE MD, [facility] Jul 15, 2018 09:54
--- NOTE | 2018-07-15 10:20 | PN ---
Date/Time of Note Date/Time of Note DATE: 07/15/18 TIME: 10:16 Assessment/Plan VTE Prophylaxis Risk score (from Nsg)>0 risk: 2 SCD applied (from Nsg): Yes Pharmacological prophylaxis: LMWH Lines/Catheters IV Catheter Type (from Nrsg): Peripheral IV Urinary Cath still in place: Yes Reason Cath still needed: other (indicate) (per OB) Assessment/Plan Assessment/Plan 28-year-old female status post , positive influenza A, cholestasis of , HPV, who was transferred to the ICU after with elevated temperatures, hypoxia and shortness of breath. # Shortness of breath hypoxia: Symptoms likely due to + influenza A. Patient has been on Tamiflu for the last 48 hours. Chest x-ray does show signs of possible pulmonary vascular congestion versus pneumonia. - Pulmonary symptoms improving. Medically stable for transfer to med/surg level. - Patient now on nasal cannula - continue Tamiflu - Motrin as needed for pain fevers # Elevated LFTs/cholestasis of : - AST ALT mid 100-200 range on admission. Of note patient was on Actigall before delivery. - After C section AST peaked at 700s, now downtrending today. - CT with enlarged, fatty liver. This is consistent with history of 40 lb weight gain during . - We will hold off on Ros[place] and Tylenol for now as we continue to monitor and trend her liver enzymes - Ampicillin (now discontinued) and oseltamivir have both been associated in some cases with increased liver enzymes. - Hep C negative. Hep B nonimmune. - autoimmune hepatitis panel. - Consulted GI. # Status post : Postop day #3 -Continue post delivery care for [employer] recommendations -Multivitamin, iron #Thrombocytopenia: Possibly secondary to . No signs of any bleeding. -Monitor CBC daily, hold off on any anticoagulants. #Urinary obstruction. - Per OB orders, thao catheter was replaced after 6 hour trial of void. - Further thao management per OB. Result Diagram: 07/15/18 0614 07/15/18 0614 Results 24hrs Laboratory Tests Test 07/14/18 13:44 07/15/18 06:14 Amylase Level 90 72 Lipase 187 125 White Blood Count 7.8 # Red Blood Count 3.64 L Hemoglobin 10.3 L Hematocrit 31.9 L Mean Corpuscular Volume 87.6 Mean Corpuscular Hemoglobin 28.3 L Mean Corpuscular Hemoglobin Concent 32.3 Red Cell Distribution Width 13.7 Platelet Count 166 # Mean Platelet Volume 13.1 H Immature Granulocytes % 1.400 H Neutrophils % 77.1 H Lymphocytes % 16.9 Monocytes % 4.0 Eosinophils % 0.3 Basophils % 0.3 Nucleated Red Blood Cells % 0.9 H Immature Granulocytes # 0.110 H Neutrophils # 6.0 Lymphocytes # 1.3 Monocytes # 0.3 Eosinophils # 0.0 Basophils # 0.0 Nucleated Red Blood Cells # 0.1 H Prothrombin Time 11.5 L Prothrombin Time Ratio 0.9 INR International Normalized Ratio 0.83 Activated Partial Thromboplast Time 36.5 H Fibrinogen 324.0 Sodium Level 138 Potassium Level 3.7 Chloride Level 109 Carbon Dioxide Level 24 Anion Gap 5 Blood Urea Nitrogen 11 Creatinine 0.45 Est Glomerular Filtrat Rate mL/min > 60 Glucose Level 76 Lactic Acid Level 1.0 Calcium Level 8.0 L Phosphorus Level 5.0 H Magnesium Level 1.7 Total Bilirubin 0.0 L Direct Bilirubin 0.00 Indirect Bilirubin 0.0 Aspartate Amino Transf (AST/SGOT) 459 H Alanine Aminotransferase (ALT/SGPT) 120 H Alkaline Phosphatase 115 Ammonia 15 Total Protein 5.0 L Albumin 2.4 L Globulin 2.60 Albumin/Globulin Ratio 0.92 Hepatitis B Surface Antibody NEGATIVE Hepatitis B Core Total Antibody NEGATIVE Hepatitis C Antibody NEGATIVE Subjective 24 Hr Interval Summary Free Text/Dictation No acute overnight events. Decline in oxygen requirements today; now on 2L NC Able to ambulate around the floor. Still with incisional C section pain. Exam/Review of Systems Vital Signs Vitals Vital Signs Date Temp Pulse Resp B/P (MAP) Pulse Ox O2 O2 Flow FiO2 Time Delivery Rate 07/15/18 85 08:00 07/15/18 15 119/94 95 Nasal 3.0 08:00 (102) Cannula 07/15/18 98.1 03:00 07/14/18 40 02:27 Intake and Output 07/14/18 07/14/18 07/15/18 1515:00 23:00 07:00 IntakeIntake Total 420 ml 480 ml 480 ml OutputOutput Total 465 ml 465 ml 250 ml BalanceBalance -45 ml 15 ml 230 ml Exam Gen: Well appearing obese woman mildly uncomfortably appearing. HEENT: Clear oropharynx, moist mucous membranes. Card: Regular rate and rhythm, no murmurs Pulm: Clear to auscultation bilaterally Abd: Soft, mildly tender lower quadrants, nondistended. Negative Barrientos's sign. Ext: No cyanosis/clubbing/edema. Skin: warm, dry, well perfused. Medications Medications Current Medications Prenat Multivit/ [place]/Iron/Folic Ac () 1 tab DAILY PO Last administered on 07/15/18 08:51; Admin Dose 1 TAB; Start 07/12/18 at 09:00 Ferrous Sulfate (Ferrous Sulfate (Ec)) 325 mg DAILY PO Last administered on 08:51; Admin Dose 325 MG; Start 07/12/18 at 09:00 Phenol (Cepastat Lozenge) 1 lozenge Q1H PRN MT COUGH Last administered on 07/15/18 03:29; Admin Dose 1 LOZENGE; Start 07/11/18 at 22:30 Oseltamivir Phosphate (Tamiflu) 75 mg BID PO Last administered on 07/15/18 08:52; Admin Dose 75 MG; Start 07/12/18 at 00:00; Stop 07/16/18 at 09:01 Terbutaline Sulfate (Brethine) 0.25 mg ONCE PRN SC CONTRACTIONS Last administered on 07/12/18 03:20; Admin Dose 0.25 MG; Start 07/12/18 at 01:30 Oxytocin/Lactated Ringer's 500 ml @ 0 mls/hr FOR AUGMENTATION IV Last administered on 07/12/18 14:02; Admin Dose 2 MLS/HR; Start 07/12/18 at 12:30 Oxytocin/Lactated Ringer's 500 ml @ 0 mls/hr ONCE PRN IV VAGINAL BLEEDING; Start 07/12/18 at 17:30 IV Flush (NS 3 ml) 3 ml PER PROTOCOL IV ; Start 07/12/18 at 17:30 Acetaminophen/ Hydrocodone Bitart ([place] (5/325)) 2 tab Q4H PRN PO PAIN LEVEL 7-10 Last administered on 07/14/18 09:15; Admin Dose 2 TAB; Start 07/12/18 at 17:30 Ibuprofen (Motrin) 600 mg Q6 PO Last administered on 07/15/18 06:07; Admin Dose 600 MG; Start 07/13/18 at 18:00 Oxytocin/Lactated Ringer's 500 ml @ 0 mls/hr ONCE PRN IV VAGINAL BLEEDING; Start 07/12/18 at 17:30 Methylergonovine Maleate (Methergine) 0.2 mg ONCE PRN IM VAGINAL BLEEDING; Start 07/12/18 at 17:30 Carboprost Tromethamine (Hemabate) 250 mcg ONCE PRN IM VAGINAL BLEEDING; Start 07/12/18 at 17:30 Misoprostol (Cytotec) 1,000 mcg ONCE PRN [place] VAGINAL BLEEDING; Start 07/12/18 at 17:30 Enoxaparin Sodium (Lovenox) 40 mg DAILY SC Last administered on 07/15/18at 09:04; Admin Dose 40 MG; Start 07/13/18 at 12:00 Pseudoephedrine HCl (Sudogest) 30 mg Q4H PRN PO COUGH Last administered on 07/14/18at 20:24; Admin Dose 30 MG; Start 07/13/18 at 20:00 Furosemide (Lasix) 20 mg DAILY IV Last administered on 07/15/18at 08:52; Admin Dose 20 MG; Start 07/15/18 at 09:00 Naloxone HCl (Narcan) 0.1 mg Q2M PRN IV DECREASED REPIRATORY RATE; Start 07/14/18 at 10:30; Stop 07/15/18 at 10:29 Diphenhydramine HCl (Benadryl) 25 mg Q6H PRN IV ITCHING; Start 07/14/18 at 10:30; Stop 07/15/18 at 10:29 Ondansetron HCl (Zofran Inj) 4 mg Q6H PRN IV NAUSEA AND/OR VOMITING; Start 07/14/18 at 10:30; Stop 07/15/18 at 10:29 Zolpidem Tartrate (Ambien) 5 mg HS MAY REPEAT X 1 PRN PO INSOMNIA; Start 07/14/18 at 10:30; Stop 07/15/18 at 10:29 Hydromorphone HCl (Dilaudid) 1 mg Q2 PRN IV BREAKTHROUGH PAIN Last administered on 07/15/18at 08:53; Admin Dose 1 MG; Start 07/14/18 at 13:00 Simethicone (Mylicon) 80 mg Q6 PO Last administered on 07/15/18at 06:07; Admin Dose 80 MG; Start 07/14/18 at 18:00 ENOCH VORA MD Jul 15, 2018 10:20
--- NOTE | 2018-07-15 11:55 | CONS ---
Date/Time of Note Date/Time of Note DATE: 07/15/18 TIME: 11:53 Assessment/Plan Assessment/Plan Hospital Course No acute changes overnight patient is alert comfortable on 1 L nasal cannula she ambulated earlier she is in no distress no fevers WBC 7.8 H&H 10.2 and 31.9 platelets 166 neutrophils 77.1 BUN 11 creatinine 0.45 Microbiology: Influenza A positive Antimicrobials: Tamiflu Physical examination: Well-developed obese middle-aged woman who is alert in no distress. Head atraumatic normocephalic sclera nonicteric. Neck is obese. Chest rise symmetrical breath sounds diminished bases. Heart: S1-S2. Abdomen obese soft with some tenderness on palpation. Bowel tones present. Extremities without cyanosis. Assessment: 1. Acute hypoxemic respiratory insufficiency secondary to #2 and fluid overload 2. Influenza A virus 3. Transaminitis, improving 4. Status post Plan: Remains stable, CT abdomen noted, continue present care, diuresis, follow pulmonary and CLINICAL CARE MANAGER recommendations, pending GI evaluation. Result Diagram: 07/15/18 0614 07/15/1814 Results 24hrs Laboratory Tests Test 07/14/18 13:44 07/15/18 06:14 Amylase Level 90 72 Lipase 187 125 White Blood Count 7.8 # Red Blood Count 3.64 L Hemoglobin 10.3 L Hematocrit 31.9 L Mean Corpuscular Volume 87.6 Mean Corpuscular Hemoglobin 28.3 L Mean Corpuscular Hemoglobin Concent 32.3 Red Cell Distribution Width 13.7 Platelet Count 166 # Mean Platelet Volume 13.1 H Immature Granulocytes % 1.400 H Neutrophils % 77.1 H Lymphocytes % 16.9 Monocytes % 4.0 Eosinophils % 0.3 Basophils % 0.3 Nucleated Red Blood Cells % 0.9 H Immature Granulocytes # 0.110 H Neutrophils # 6.0 Lymphocytes # 1.3 Monocytes # 0.3 Eosinophils # 0.0 Basophils # 0.0 Nucleated Red Blood Cells # 0.1 H Prothrombin Time 11.5 L Prothrombin Time Ratio 0.9 INR International Normalized Ratio 0.83 Activated Partial Thromboplast Time 36.5 H Fibrinogen 324.0 Sodium Level 138 Potassium Level 3.7 Chloride Level 109 Carbon Dioxide Level 24 Anion Gap 5 Blood Urea Nitrogen 11 Creatinine 0.45 Est Glomerular Filtrat Rate mL/min > 60 Glucose Level 76 Lactic Acid Level 1.0 Calcium Level 8.0 L Phosphorus Level 5.0 H Magnesium Level 1.7 Total Bilirubin 0.0 L Direct Bilirubin 0.00 Indirect Bilirubin 0.0 Aspartate Amino Transf (AST/SGOT) 459 H Alanine Aminotransferase (ALT/SGPT) 120 H Alkaline Phosphatase 115 Ammonia 15 Total Protein 5.0 L Albumin 2.4 L Globulin 2.60 Albumin/Globulin Ratio 0.92 Hepatitis B Surface Antibody NEGATIVE Hepatitis B Core Total Antibody NEGATIVE Hepatitis C Antibody NEGATIVE Consultation Date/Type/Reason Admit Date/Time Jul 11, 2018 at 21:22 Initial Consult Date 07/13/18 Type of Consult id Exam/Review of Systems Vital Signs Vitals Vital Signs Date Temp Pulse Resp B/P (MAP) Pulse Ox O2 O2 Flow FiO2 Time Delivery Rate 07/15/18 85 08:00 07/15/18 15 119/94 95 Nasal 3.0 08:00 (102) Cannula 07/15/18 98.1 03:00 07/14/18 40 02:27 Intake and Output 07/14/18 07/14/18 07/15/18 1515:00 23:00 07:00 IntakeIntake Total 420 ml 480 ml 480 ml OutputOutput Total 465 ml 465 ml 250 ml BalanceBalance -45 ml 15 ml 230 ml Medications Medications Current Medications Prenat Multivit/ [place]/Iron/Folic Ac () 1 tab DAILY PO Last administered on 07/15/18 08:51; Admin Dose 1 TAB; Start 07/12/18 at 09:00 Ferrous Sulfate (Ferrous Sulfate (Ec)) 325 mg DAILY PO Last administered on 08:51; Admin Dose 325 MG; Start 07/12/18 at 09:00 Phenol (Cepastat Lozenge) 1 lozenge Q1H PRN MT COUGH Last administered on 07/15/18 03:29; Admin Dose 1 LOZENGE; Start 07/11/18 at 22:30 Oseltamivir Phosphate (Tamiflu) 75 mg BID PO Last administered on 07/15/18 08:52; Admin Dose 75 MG; Start 07/12/18 at 00:00; Stop 07/16/18 at 09:01 Terbutaline Sulfate (Brethine) 0.25 mg ONCE PRN SC CONTRACTIONS Last administered on 07/12/18 03:20; Admin Dose 0.25 MG; Start 07/12/18 at 01:30 Oxytocin/Lactated Ringer's 500 ml @ 0 mls/hr FOR AUGMENTATION IV Last administered on 07/12/18at 14:02; Admin Dose 2 MLS/HR; Start 07/12/18 at 12:30 Oxytocin/Lactated Ringer's 500 ml @ 0 mls/hr ONCE PRN IV VAGINAL BLEEDING; Start 07/12/18 at 17:30 IV Flush (NS 3 ml) 3 ml PER PROTOCOL IV ; Start 07/12/18 at 17:30 Acetaminophen/ Hydrocodone Bitart ([place] (5/325)) 2 tab Q4H PRN PO PAIN LEVEL 7-10 Last administered on 07/14/18 09:15; Admin Dose 2 TAB; Start 07/12/18 at 17:30 Ibuprofen (Motrin) 600 mg Q6 PO Last administered on 07/15/18at 06:07; Admin Dose 600 MG; Start 07/13/18 at 18:00 Oxytocin/Lactated Ringer's 500 ml @ 0 mls/hr ONCE PRN IV VAGINAL BLEEDING; Start 07/12/18 at 17:30 Methylergonovine Maleate (Methergine) 0.2 mg ONCE PRN IM VAGINAL BLEEDING; Start 07/12/18 at 17:30 Carboprost Tromethamine (Hemabate) 250 mcg ONCE PRN IM VAGINAL BLEEDING; Start 07/12/18 at 17:30 Misoprostol (Cytotec) 1,000 mcg ONCE PRN [place] VAGINAL BLEEDING; Start 07/12/18 at 17:30 Enoxaparin Sodium (Lovenox) 40 mg DAILY SC Last administered on 07/15/18 09:04; Admin Dose 40 MG; Start 07/13/18 at 12:00 Pseudoephedrine HCl (Sudogest) 30 mg Q4H PRN PO COUGH Last administered on 07/14/18 20:24; Admin Dose 30 MG; Start 07/13/18 at 20:00 Furosemide (Lasix) 20 mg DAILY IV Last administered on 07/15/18 08:52; Admin Dose 20 MG; Start 07/15/18 at 09:00 Hydromorphone HCl (Dilaudid) 1 mg Q2 PRN IV BREAKTHROUGH PAIN Last administered on 07/15/18 08:53; Admin Dose 1 MG; Start 07/14/18 at 13:00 Simethicone (Mylicon) 80 mg Q6 PO Last administered on 07/15/18at 06:07; Admin Dose 80 MG; Start 07/14/18 at 18:00 CYNDY MELARA NP Jul 15, 2018 11:55
--- NOTE | 2018-07-15 12:59 | QN ---
Documentation Comment pt is feeling much better passing flatus LFT improve Scant [place] CT scan done no sig findings Plan d/c thao colace BID F/U GI Labs in am THAO BUCKNER M.D. Jul 15, 2018 12:59
--- NOTE | 2018-07-15 13:16 | CONS ---
Date/Time of Note Date/Time of Note DATE: 07/15/18 TIME: 12:56 Assessment/Plan Assessment/Plan Hospital Course Summary Assessment and Plan: Assessment: Elevated amino transferase- trending down/Thrombocytopenia - resolved DDx: AFLP vs HELLP vs other Hepatic steatosis Influenza A- on droplet precautions S/p 07/12/18 Urinary obstruction Query gallbladder thickening on imaging Plan: Hepatitis panel Neg WHITNEY, ASMA, AMA- pending Hida scan Diet as tolerated. Continue to monitor labs After discharge recommend pt to f/u with Gi for further monitor of LFTs and fatty liver Patient seen in collaboration with Cami Flores/Dr. Fernandez Result Diagram: 07/15/18 0614 07/15/18 0614 Results 24hrs Laboratory Tests Test 07/14/18 13:44 07/15/18 06:14 Amylase Level 90 72 Lipase 187 125 White Blood Count 7.8 # Red Blood Count 3.64 L Hemoglobin 10.3 L Hematocrit 31.9 L Mean Corpuscular Volume 87.6 Mean Corpuscular Hemoglobin 28.3 L Mean Corpuscular Hemoglobin Concent 32.3 Red Cell Distribution Width 13.7 Platelet Count 166 # Mean Platelet Volume 13.1 H Immature Granulocytes % 1.400 H Neutrophils % 77.1 H Lymphocytes % 16.9 Monocytes % 4.0 Eosinophils % 0.3 Basophils % 0.3 Nucleated Red Blood Cells % 0.9 H Immature Granulocytes # 0.110 H Neutrophils # 6.0 Lymphocytes # 1.3 Monocytes # 0.3 Eosinophils # 0.0 Basophils # 0.0 Nucleated Red Blood Cells # 0.1 H Prothrombin Time 11.5 L Prothrombin Time Ratio 0.9 INR International Normalized Ratio 0.83 Activated Partial Thromboplast Time 36.5 H Fibrinogen 324.0 Sodium Level 138 Potassium Level 3.7 Chloride Level 109 Carbon Dioxide Level 24 Anion Gap 5 Blood Urea Nitrogen 11 Creatinine 0.45 Est Glomerular Filtrat Rate mL/min > 60 Glucose Level 76 Lactic Acid Level 1.0 Calcium Level 8.0 L Phosphorus Level 5.0 H Magnesium Level 1.7 Total Bilirubin 0.0 L Direct Bilirubin 0.00 Indirect Bilirubin 0.0 Aspartate Amino Transf (AST/SGOT) 459 H Alanine Aminotransferase (ALT/SGPT) 120 H Alkaline Phosphatase 115 Ammonia 15 Total Protein 5.0 L Albumin 2.4 L Globulin 2.60 Albumin/Globulin Ratio 0.92 Hepatitis B Surface Antibody NEGATIVE Hepatitis B Core Total Antibody NEGATIVE Hepatitis C Antibody NEGATIVE CC: BENNIE FERNANDEZ ; Consultation Date/Type/Reason Admit Date/Time Jul 11, 2018 at 21:22 Date of Consultation: Jul 15, 2018 Type of Consult GI Reason for Consultation Elevated Liver enzymes Thrombocytopenia Hx of Present Illness This is a 28-year-old female who initially presented to the ED after 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 Upon workup patient found to have influenza A additionally patient found to have thrombus cytopenia as well as an elevated AST she is status post on 07/12/18 with a increase in her AST after . A liver ultrasound was obtained showing complex collection of fluid adjacent to the gallbladder measuring 5.6 x 2.8 x 1.0 cm, nonspecific, may indicate cholecystitis, complex ascites or fluid secondary to peptic ulcer or pancreatitis. Mild associated thickening of the gallbladder wall, hepatic steatosis, trace free fluid extending over caudal margin of the liver. On 07/14/[address] abdomen pelvis with contrast was obtained again showing edematous appearance hepatomegaly with fatty infiltration of the liver, mild thickened appearance of the gallbladder could represent third spacing of fluid however cholecystitis is not excluded, bilateral layering small to moderate effusions are seen with compressive at electasis in bilateral lateral lobes, post surgical changes seen from recent C- section, edematous appearance of the uterus is seen with mild fluid within the uterine cavity and lower uterine segment myometrium likely postsurgical in nature without hematoma or abscess. Currently patient's thrombocytopenia has now resolved with platelet count of 166 her INR today is 0.83, PTT mildly elevated at 36.5, of note uric acid is normal as well as creatinine level, ammonia level is 15, LFTs are now trending down AST today is 459 down from 783, ALT is 120 down from 147, alkaline phosphatase has been normal since 07/13/18 and bilirubin has been normal throughout hospitalization. We additionally checked f ibrinogen which is 324, hepatitis B and C are both negative she is additionally negative for RPR. Autoimmune workup is currently pending. Patient has been afebrile for the past 24+ hours her last fever noted to be in 12/24 WBC has been normal throughout hospitalization and at time evaluation patient complains of lower abdominal pain surgical in nature. She also complains of moderate epigastric and right upper quadrant pain with palpation tolerating diet does not seem to be affected postprandial increased pain. Differential includes AFLP vs HELLP vs other of her patient now clinically improving. Review of Systems: A 12 system, review was conducted and is negative except as noted in the HPI or here. Past Medical History Medical History: no pertinent history Medications Current Medications Prenat Multivit/ [place]/Iron/Folic Ac () 1 tab DAILY PO Last administered on 07/15/18 08:51; Admin Dose 1 TAB; Start 07/12/18 at 09:00 Ferrous Sulfate (Ferrous Sulfate (Ec)) 325 mg DAILY PO Last administered on 07/15/18 08:51; Admin Dose 325 MG; Start 07/12/18 at 09:00 Phenol (Cepastat Lozenge) 1 lozenge Q1H PRN MT COUGH Last administered on 07/15/18 03:29; Admin Dose 1 LOZENGE; Start 07/11/18 at 22:30 Oseltamivir Phosphate (Tamiflu) 75 mg BID PO Last administered on 07/15/18 08:52; Admin Dose 75 MG; Start 07/12/18 at 00:00; Stop 07/16/18 at 09:01 Terbutaline Sulfate (Brethine) 0.25 mg ONCE PRN SC CONTRACTIONS Last administered on 07/12/18 03:20; Admin Dose 0.25 MG; Start 07/12/18 at 01:30 Oxytocin/Lactated Ringer's 500 ml @ 0 mls/hr FOR AUGMENTATION IV Last administered on 07/12/18 14:02; Admin Dose 2 MLS/HR; Start 07/12/18 at 12:30 Oxytocin/Lactated Ringer's 500 ml @ 0 mls/hr ONCE PRN IV VAGINAL BLEEDING; Start 07/12/18 at 17:30 IV Flush (NS 3 ml) 3 ml PER PROTOCOL IV ; Start 07/12/18 at 17:30 Acetaminophen/ Hydrocodone Bitart ([place] (5/325)) 2 tab Q4H PRN PO PAIN LEVEL 7-10 Last administered on 07/14/18 09:15; Admin Dose 2 TAB; Start 07/12/18 at 17:30 Ibuprofen (Motrin) 600 mg Q6 PO Last administered on 07/15/18 12:03; Admin Dose 600 MG; Start 07/13/18 at 18:00 Oxytocin/Lactated Ringer's 500 ml @ 0 mls/hr ONCE PRN IV VAGINAL BLEEDING; Start 07/12/18 at 17:30 Methylergonovine Maleate (Methergine) 0.2 mg ONCE PRN IM VAGINAL BLEEDING; Start 07/12/18 at 17:30 Carboprost Tromethamine (Hemabate) 250 mcg ONCE PRN IM VAGINAL BLEEDING; Start 07/12/18 at 17:30 Misoprostol (Cytotec) 1,000 mcg ONCE PRN [place] VAGINAL BLEEDING; Start 07/12/18 at 17:30 Enoxaparin Sodium (Lovenox) 40 mg DAILY SC Last administered on 07/15/18at 09:04; Admin Dose 40 MG; Start 07/13/18 at 12:00 Pseudoephedrine HCl (Sudogest) 30 mg Q4H PRN PO COUGH Last administered on 07/14/18at 20:24; Admin Dose 30 MG; Start 07/13/18 at 20:00 Furosemide (Lasix) 20 mg DAILY IV Last administered on 07/15/18at 08:52; Admin Dose 20 MG; Start 07/15/18 at 09:00 Hydromorphone HCl (Dilaudid) 1 mg Q2 PRN IV BREAKTHROUGH PAIN Last administered on 07/15/18at 08:53; Admin Dose 1 MG; Start 07/14/18 at 13:00 Simethicone (Mylicon) 80 mg Q6 PO Last administered on 07/15/18at 12:04; Admin Dose 80 MG; Start 07/14/18 at 18:00 Allergies: Coded Allergies: No Known Allergy (Verified , 11/08/16) Past Surgical History Past Surgical Hx: other (Liposuction, prior breast implants with removal) Social History Alcohol Use: none Smoking Status: Never smoker Drug Use: none Exam/Review of Systems Vital Signs Vitals Vital Signs Date Temp Pulse Resp B/P (MAP) Pulse Ox O2 O2 Flow FiO2 Time Delivery Rate 07/15/18 85 08:00 07/15/18 15 119/94 95 Nasal 3.0 08:00 (102) Cannula 07/15/18 98.1 03:00 07/14/18 40 02:27 Intake and Output 07/14/18 07/14/18 07/15/18 1515:00 23:00 07:00 IntakeIntake Total 420 ml 480 ml 480 ml OutputOutput Total 465 ml 465 ml 250 ml BalanceBalance -45 ml 15 ml 230 ml Exam PHYSICAL EXAMINATION: GENERAL: Well developed, well nourished, alert & oriented x 3, in no acute distress SKIN: lower abd scar s/p . HEAD: Normocephalic, atraumatic, no tenderness. EYES: Pupils equal reactive to light and accommodation, full extraocular movements, sclera clear, non-icteric, no discharge. EARS/NOSE AND THROAT: Ears normal, nose normal, oropharynx normal, oral memb ranes well hydrated without lesions. NECK: Supple, no masses, CHEST: Inspection within normal limits. CARDIOVASCULAR: Heart: Regular rate and rhythm RESPIRATORY: Lungs clear to auscultation GASTROINTESTINAL AND LIVER: Abdomen: Soft, lower abd tenderness (surgical) Epigastric/RUQ tenderness with palpation, non-distended, no hernias, no masses, no organomegaly, no ascites, no guarding, no rebound tenderness, normoactive bowel sounds. Rectal: Deferred. GENITOURINARY: Female genitalia within normal limits. EXTREMITIES: No cyanosis, clubbing or edema. Medications Medications Current Medications Prenat Multivit/ [place]/Iron/Folic Ac () 1 tab DAILY PO Last administered on 07/15/18 08:51; Admin Dose 1 TAB; Start 07/12/18 at 09:00 Ferrous Sulfate (Ferrous Sulfate (Ec)) 325 mg DAILY PO Last administered on 07/15/18 08:51; Admin Dose 325 MG; Start 07/12/18 at 09:00 Phenol (Cepastat Lozenge) 1 lozenge Q1H PRN [place] COUGH Last administered on 07/15/18 03:29; Admin Dose 1 LOZENGE; Start 07/11/18 at 22:30 Oseltamivir Phosphate (Tamiflu) 75 mg BID PO Last administered on 07/15/18 08:52; Admin Dose 75 MG; Start 07/12/18 at 00:00; Stop 07/16/18 at 09:01 Terbutaline Sulfate (Brethine) 0.25 mg ONCE PRN SC CONTRACTIONS Last administered on 07/12/18 03:20; Admin Dose 0.25 MG; Start 07/12/18 at 01:30 Oxytocin/Lactated Ringer's 500 ml @ 0 mls/hr FOR AUGMENTATION IV Last administered on 07/12/18 14:02; Admin Dose 2 MLS/HR; Start 07/12/18 at 12:30 Oxytocin/Lactated Ringer's 500 ml @ 0 mls/hr ONCE PRN IV VAGINAL BLEEDING; Start 07/12/18 at 17:30 IV Flush (NS 3 ml) 3 ml PER PROTOCOL IV ; Start 07/12/18 at 17:30 Acetaminophen/ Hydrocodone Bitart ([place] (5/325)) 2 tab Q4H PRN PO PAIN LEVEL 7-10 Last administered on 07/14/18 09:15; Admin Dose 2 TAB; Start 07/12/18 at 17:30 Ibuprofen (Motrin) 600 mg Q6 PO Last administered on 07/15/18 12:03; Admin Dose 600 MG; Start 07/13/18 at 18:00 Oxytocin/Lactated Ringer's 500 ml @ 0 mls/hr ONCE PRN IV VAGINAL BLEEDING; Start 07/12/18 at 17:30 Methylergonovine Maleate (Methergine) 0.2 mg ONCE PRN IM VAGINAL BLEEDING; Start 07/12/18 at 17:30 Carboprost Tromethamine (Hemabate) 250 mcg ONCE PRN IM VAGINAL BLEEDING; Start 07/12/18 at 17:30 Misoprostol (Cytotec) 1,000 mcg ONCE PRN [place] VAGINAL BLEEDING; Start 07/12/18 at 17:30 Enoxaparin Sodium (Lovenox) 40 mg DAILY SC Last administered on 07/15/18 09:04; Admin Dose 40 MG; Start 07/13/18 at 12:00 Pseudoephedrine HCl (Sudogest) 30 mg Q4H PRN PO COUGH Last administered on 07/14/18 20:24; Admin Dose 30 MG; Start 07/13/18 at 20:00 Furosemide (Lasix) 20 mg DAILY IV Last administered on 07/15/18 08:52; Admin Dose 20 MG; Start 07/15/18 at 09:00 Hydromorphone HCl (Dilaudid) 1 mg Q2 PRN IV BREAKTHROUGH PAIN Last administered on 07/15/18 08:53; Admin Dose 1 MG; Start 07/14/18 at 13:00 Simethicone (Mylicon) 80 mg Q6 PO Last administered on 07/15/18at 12:04; Admin Dose 80 MG; Start 07/14/18 at 18:00 JOSE LUIS MEYERS Jul 15, 2018 13:07
[2018-07-15] MEDS: DOCUSATE SODIUM 100 MG CAP PO SCH ×2 (14:00→20:28)
[2018-07-16] VITALS (21 sets, daily range): BP systolic 76–135; BP diastolic 53–107; PULSE 82–152; RESP 13–31
[2018-07-16] MEDS: IBUPROFEN 600 MG TAB PO SCH ×4 (00:13→17:54)
[2018-07-16] MEDS: HYDROmorphONE 1 MG/ML SYG IV PRN ×2 (01:22→08:17)
[2018-07-16] MEDS: FUROSEMIDE 20 MG INJ IV SCH (08:16)
[2018-07-16] MEDS: FERROUS SULFATE (EC) 325 MG TAB PO SCH (08:16)
[2018-07-16] MEDS: OSELTAMIVIR 75 MG CAP PO SCH (08:16)
[2018-07-16] MEDS: PRENATAL VITAMIN PO SCH (08:16)
[2018-07-16] MEDS: DOCUSATE SODIUM 100 MG CAP PO SCH (08:19)
[2018-07-16] MEDS: ENOXAPARIN 40 MG/0.4 ML SYG SC SCH (08:21)
--- NOTE | 2018-07-16 09:38 | CONS ---
Date/Time of Note Date/Time of Note DATE: 07/16/18 TIME: 09:36 Assessment/Plan Assessment/Plan Assessment/Plan Assessment and recommendations; 1. Patient admitted for then developed influenza pneumo renee. With significant clinical improvement. 2. Acute liver injury with continually improving liver function panel. 3. Improving thrombus cytopenia. Likely infection induced. 4. Mild anemia. Continue current supportive care. Transfer to medical floor. Consider discharge. Result Diagram: 07/16/18 0447 07/16/18 0448 Results 24hrs Laboratory Tests Test 07/16/18 04:47 07/16/18 04:48 White Blood Count 7.0 Red Blood Count 3.62 L Hemoglobin 10.3 L Hematocrit 31.1 L Mean Corpuscular Volume 85.9 Mean Corpuscular Hemoglobin 28.5 L Mean Corpuscular Hemoglobin Concent 33.1 Red Cell Distribution Width 13.8 Platelet Count 196 Mean Platelet Volume 12.2 H Immature Granulocytes % 1.900 H Neutrophils % 74.1 Lymphocytes % 18.5 Monocytes % 5.3 Eosinophils % 0.1 Basophils % 0.1 Nucleated Red Blood Cells % 0.7 H Immature Granulocytes # 0.130 H Neutrophils # 5.2 Lymphocytes # 1.3 Monocytes # 0.4 Eosinophils # 0.0 Basophils # 0.0 Nucleated Red Blood Cells # 0.1 H Sodium Level 140 Potassium Level 3.6 Chloride Level 106 Carbon Dioxide Level 26 Anion Gap 8 Blood Urea Nitrogen 9 Creatinine 0.45 Est Glomerular Filtrat Rate mL/min > 60 Glucose Level 82 Calcium Level 8.0 L Total Bilirubin 0.1 L Direct Bilirubin 0.00 Indirect Bilirubin 0.1 Aspartate Amino Transf (AST/SGOT) 279 H Alanine Aminotransferase (ALT/SGPT) 94 H Alkaline Phosphatase 105 Total Protein 5.6 L Albumin 2.7 L Globulin 2.90 Albumin/Globulin Ratio 0.93 Consultation Date/Type/Reason Admit Date/Time Jul 11, 2018 at 21:22 Initial Consult Date 07/15/18 Type of Consult Pulmonary Reason for Consultation Patient's condition is markedly improved. Denies any shortness of breath, coughing, wheezing, sputum production or fever. General exam; young female, awake and alert. Currently no distress. On room air. Exam/Review of Systems Vital Signs Vitals Vital Signs Date Temp Pulse Resp B/P (MAP) Pulse Ox O2 O2 Flow FiO2 Time Delivery Rate 07/16/18 97.6 06:49 07/16/18 107 27 128/63 93 Room Air 06:00 (84) 07/15/18 2.0 20:00 07/14/18 40 02:27 Intake and Output 07/15/18 07/15/18 07/16/18 1515:00 23:00 07:00 IntakeIntake Total 300 ml 300 ml 280 ml OutputOutput Total 2400 ml 250 ml 200 ml BalanceBalance -2100 ml 50 ml 80 ml Exam H EENT exam; supple neck, no JVD. No lymphadenopathy. Midline trachea. No thyromegaly. Patient has fair dentition. No neck masses. Chest exam; clear to auscultation. S1-S2 audible, no murmurs. Regular rhythm. Abdomen exam; soft, protuberant. Bowel sounds audible. Extremity exam; no peripheral edema or clubbing. [employer] exam; no focal deficit. Medications Medications Current Medications Prenat Multivit/ [place]/Iron/Folic Ac () 1 tab DAILY PO Last admi nistered on 07/16/18 08:16; Admin Dose 1 TAB; Start 07/12/18 at 09:00 Ferrous Sulfate (Ferrous Sulfate (Ec)) 325 mg DAILY PO Last administered on 07/16/18 08:16; Admin Dose 325 MG; Start 07/12/18 at 09:00 Phenol (Cepastat Lozenge) 1 lozenge Q1H PRN MT COUGH Last administered on 07/15/18 22:24; Admin Dose 1 LOZENGE; Start 07/11/18 at 22:30 Terbutaline Sulfate (Brethine) 0.25 mg ONCE PRN SC CONTRACTIONS Last administered on 07/12/18 03:20; Admin Dose 0.25 MG; Start 07/12/18 at 01:30 Oxytocin/Lactated Ringer's 500 ml @ 0 mls/hr FOR AUGMENTATION IV Last administered on 07/12/18 14:02; Admin Dose 2 MLS/HR; Start 07/12/18 at 12:30 Oxytocin/Lactated Ringer's 500 ml @ 0 mls/hr ONCE PRN IV VAGINAL BLEEDING; Start 07/12/18 at 17:30 IV Flush (NS 3 ml) 3 ml PER PROTOCOL IV ; Start 07/12/18 at 17:30 Acetaminophen/ Hydrocodone Bitart ([place] (5/325)) 2 tab Q4H PRN PO PAIN LEVEL 7-10 Last administered on 07/14/18at 09:15; Admin Dose 2 TAB; Start 07/12/18 at 17:30 Ibuprofen (Motrin) 600 mg Q6 PO Last administered on 07/16/18at 06:04; Admin Dose 600 MG; Start 07/13/18 at 18:00 Oxytocin/Lactated Ringer's 500 ml @ 0 mls/hr ONCE PRN IV VAGINAL BLEEDING; Start 07/12/18 at 17:30 Methylergonovine Maleate (Methergine) 0.2 mg ONCE PRN IM VAGINAL BLEEDING; Start 07/12/18 at 17:30 Carboprost Tromethamine (Hemabate) 250 mcg ONCE PRN IM VAGINAL BLEEDING; Start 07/12/18 at 17:30 Misoprostol (Cytotec) 1,000 mcg ONCE PRN [place] VAGINAL BLEEDING; Start 07/12/18 at 17:30 Enoxaparin Sodium (Lovenox) 40 mg DAILY SC Last administered on 07/16/18at 08:21; Admin Dose 40 MG; Start 07/13/18 at 12:00 Pseudoephedrine HCl (Sudogest) 30 mg Q4H PRN PO COUGH Last administered on 07/14/18at 20:24; Admin Dose 30 MG; Start 07/13/18 at 20:00 Simethicone (Mylicon) 80 mg Q6 PO Last administered on 07/16/18at 06:03; Admin Dose 80 MG; Start 07/14/18 at 18:00 Docusate Sodium (Colace) 100 mg BID PO ; Start 07/15/18 at 14:00 YING PADILLA Jul 16, 2018 09:38
--- NOTE | 2018-07-16 14:47 | PN ---
Date/Time of Note Date/Time of Note DATE: 07/16/18 TIME: 14:41 Assessment/Plan VTE Prophylaxis Risk score (from Ns)>0 risk: 2 SCD applied (from Ns): Yes Pharmacological prophylaxis: other (scds) Lines/Catheters [facility] Urinary Cath still in place: No Assessment/Plan Hospital Course Summary Assessment and Plan: Assessment: Elevated amino transferase- trending down/Thrombocytopenia - resolved DDx: AFLP vs HELLP vs other Hepatic steatosis Influenza A- on droplet precautions S/p 07/12/18 Urinary obstruction Query gallbladder thickening on imaging Plan: Hepatitis panel Neg WHITNEY, ASMA, AMA- cecelia Hida scan- neg Diet as tolerated. D/c planning for today After discharge recommend pt to f/u with Gi for further monitor of LFTs and fatty liver Patient seen in collaboration with Cami Flores/Dr. Mario Subjective: Course reviewed with nursing staff Patient interviewed and examined All labs, imaging and other results reviewed The patient feels much better, LFTS trending down. Patient anxious to go home. No c/o n/v. Pt has some surgical discomfort to be expected. PHYSICAL EXAMINATION: GENERAL: Well developed, well nourished, alert & oriented x 3, in no acute distress SKIN: lower abd scar s/p . CHEST: Inspection within normal limits. CARDIOVASCULAR: Heart: Regular rate and rhythm RESPIRATORY: Lungs clear to auscultation GASTROINTESTINAL AND LIVER: Abdomen: Soft, lower abd tenderness (surgical) Epigastric/RUQ tenderness with palpation- improved, non-distended, no hernias, no masses, no organomegaly, no ascites, no guarding, no rebound tenderness, normoactive bowel sounds. Rectal: Deferred. GENITOURINARY: Female genitalia within normal limits. EXTREMITIES: No cyanosis, clubbing or edema. Result Diagram: 07/16/18 0447 07/16/18 0448 Results 24hrs Laboratory Tests Test 07/16/18 04:47 07/16/18 04:48 White Blood Count 7.0 Red Blood Count 3.62 L Hemoglobin 10.3 L Hematocrit 31.1 L Mean Corpuscular Volume 85.9 Mean Corpuscular Hemoglobin 28.5 L Mean Corpuscular Hemoglobin Concent 33.1 Red Cell Distribution Width 13.8 Platelet Count 196 Mean Platelet Volume 12.2 H Immature Granulocytes % 1.900 H Neutrophils % 74.1 Lymphocytes % 18.5 Monocytes % 5.3 Eosinophils % 0.1 Basophils % 0.1 Nucleated Red Blood Cells % 0.7 H Immature Granulocytes # 0.130 H Neutrophils # 5.2 Lymphocytes # 1.3 Monocytes # 0.4 Eosinophils # 0.0 Basophils # 0.0 Nucleated Red Blood Cells # 0.1 H Sodium Level 140 Potassium Level 3.6 Chloride Level 106 Carbon Dioxide Level 26 Anion Gap 8 Blood Urea Nitrogen 9 Creatinine 0.45 Est Glomerular Filtrat Rate mL/min > 60 Glucose Level 82 Calcium Level 8.0 L Total Bilirubin 0.1 L Direct Bilirubin 0.00 Indirect Bilirubin 0.1 Aspartate Amino Transf (AST/SGOT) 279 H Alanine Aminotransferase (ALT/SGPT) 94 H Alkaline Phosphatase 105 Total Protein 5.6 L Albumin 2.7 L Globulin 2.90 Albumin/Globulin Ratio 0.93 Exam/Review of Systems Vital Signs Vitals Vital Signs Date Temp Pulse Resp B/P (MAP) Pulse Ox O2 O2 Flow FiO2 Time Delivery Rate 07/16/18 97 21 124/87 91 Room Air 14:00 (99) 07/16/18 98.1 12:00 07/15/18 2.0 20:00 07/14/18 40 02:27 Intake and Output 07/15/18 07/15/18 07/16/18 1414:59 22:59 06:59 IntakeIntake Total 300 ml 300 ml 280 ml OutputOutput Total 2400 ml 250 ml 200 ml BalanceBalance -2100 ml 50 ml 80 ml Medications Medications Current Medications Prenat Multivit/ [place]/Iron/Folic Ac () 1 tab DAILY PO Last administered on 07/16/18at 08:16; Admin Dose 1 TAB; Start 07/12/18 at 09:00 Ferrous Sulfate (Ferrous Sulfate (Ec)) 325 mg DAILY PO Last administered on 07/16/18 08:16; Admin Dose 325 MG; Start 07/12/18 at 09:00 Phenol (Cepastat Lozenge) 1 lozenge Q1H PRN MT COUGH Last administered on 07/15/18 22:24; Admin Dose 1 LOZENGE; Start 07/11/18 at 22:30 Terbutaline Sulfate (Brethine) 0.25 mg ONCE PRN SC CONTRACTIONS Last administered on 07/12/18at 03:20; Admin Dose 0.25 MG; Start 07/12/18 at 01:30 Oxytocin/Lactated Ringer's 500 ml @ 0 mls/hr FOR AUGMENTATION IV Last administered on 07/12/18at 14:02; Admin Dose 2 MLS/HR; Start 07/12/18 at 12:30 Oxytocin/Lactated Ringer's 500 ml @ 0 mls/hr ONCE PRN IV VAGINAL BLEEDING; Start 07/12/18 at 17:30 IV Flush (NS 3 ml) 3 ml PER PROTOCOL IV ; Start 07/12/18 at 17:30 Acetaminophen/ Hydrocodone Bitart ([place] (5/325)) 2 tab Q4H PRN PO PAIN LEVEL 7-10 Last administered on 07/14/18at 09:15; Admin Dose 2 TAB; Start 07/12/18 at 17:30 Ibuprofen (Motrin) 600 mg Q6 PO Last administered on 07/16/18at 12:28; Admin Dose 600 MG; Start 07/13/18 at 18:00 Oxytocin/Lactated Ringer's 500 ml @ 0 mls/hr ONCE PRN IV VAGINAL BLEEDING; Start 07/12/18 at 17:30 Methylergonovine Maleate (Methergine) 0.2 mg ONCE PRN IM VAGINAL BLEEDING; Start 07/12/18 at 17:30 Carboprost Tromethamine (Hemabate) 250 mcg ONCE PRN IM VAGINAL BLEEDING; Start 07/12/18 at 17:30 Misoprostol (Cytotec) 1,000 mcg ONCE PRN [place] VAGINAL BLEEDING; Start 07/12/18 at 17:30 Enoxaparin Sodium (Lovenox) 40 mg DAILY SC Last administered on 07/16/18at 08:21; Admin Dose 40 MG; Start 07/13/18 at 12:00 Pseudoephedrine HCl (Sudogest) 30 mg Q4H PRN PO COUGH Last administered on 07/14/18at 20:24; Admin Dose 30 MG; Start 07/13/18 at 20:00 Simethicone (Mylicon) 80 mg Q6 PO Last administered on 07/16/18 12:28; Admin Dose 80 MG; Start 07/14/18 at 18:00 Docusate Sodium (Colace) 100 mg BID PO ; Start 07/15/18 at 14:00 JOSE LUIS MEYERS Jul 16, 2018 14:46
--- NOTE | 2018-07-16 15:32 | CONS ---
Date/Time of Note Date/Time of Note DATE: 07/16/18 TIME: 15:31 Assessment/Plan Assessment/Plan Hospital Course Doing better no shortness of breath on room air, no fevers overnight WBC 7 platelets 196 neutrophils 74.1 BUN 9 creatinine 0.45 Microbiology: Influenza A on admission positive, status post Tamiflu Physical examination: Well-developed obese middle-aged woman who is alert in no distress. Head atraumatic normocephalic sclera nonicteric. Neck is obese. Chest rise symmetrical breath sounds diminished bases. Heart: S1-S2. Abdomen obese soft with some tenderness on palpation. Bowel tones present. Extremities without cyanosis. Assessment: 1. Status post acute hypoxemic respiratory insufficiency secondary to #2 and fluid overload 2. Influenza A virus 3. Transaminitis, improving, HIDA scan negative 4. Status post Plan: Remains stable, completed treatment for influenza, pending discharge planning Result Diagram: 07/16/18 0447 07/16/18 0448 Results 24hrs Laboratory Tests Test 07/16/18 04:47 07/16/18 04:48 White Blood Count 7.0 Red Blood Count 3.62 L Hemoglobin 10.3 L Hematocrit 31.1 L Mean Corpuscular Volume 85.9 Mean Corpuscular Hemoglobin 28.5 L Mean Corpuscular Hemoglobin Concent 33.1 Red Cell Distribution Width 13.8 Platelet Count 196 Mean Platelet Volume 12.2 H Immature Granulocytes % 1.900 H Neutrophils % 74.1 Lymphocytes % 18.5 Monocytes % 5.3 Eosinophils % 0.1 Basophils % 0.1 Nucleated Red Blood Cells % 0.7 H Immature Granulocytes # 0.130 H Neutrophils # 5.2 Lymphocytes # 1.3 Monocytes # 0.4 Eosinophils # 0.0 Basophils # 0.0 Nucleated Red Blood Cells # 0.1 H Sodium Level 140 Potassium Level 3.6 Chloride Level 106 Carbon Dioxide Level 26 Anion Gap 8 Blood Urea Nitrogen 9 Creatinine 0.45 Est Glomerular Filtrat Rate mL/min > 60 Glucose Level 82 Calcium Level 8.0 L Total Bilirubin 0.1 L Direct Bilirubin 0.00 Indirect Bilirubin 0.1 Aspartate Amino Transf (AST/SGOT) 279 H Alanine Aminotransferase (ALT/SGPT) 94 H Alkaline Phosphatase 105 Total Protein 5.6 L Albumin 2.7 L Globulin 2.90 Albumin/Globulin Ratio 0.93 Consultation Date/Type/Reason Admit Date/Time Jul 11, 2018 at 21:22 Initial Consult Date 07/13/18 Type of Consult id Exam/Review of Systems Vital Signs Vitals Vital Signs Date Temp Pulse Resp B/P (MAP) Pulse Ox O2 O2 Flow FiO2 Time Delivery Rate 07/16/18 97 21 124/87 91 Room Air 14:00 (99) 07/16/18 98.1 12:00 07/15/18 2.0 20:00 07/14/18 40 02:27 Intake and Output 07/15/18 07/15/18 07/16/18 1515:00 23:00 07:00 IntakeIntake Total 300 ml 300 ml 280 ml OutputOutput Total 2400 ml 250 ml 200 ml BalanceBalance -2100 ml 50 ml 80 ml Medications Medications Current Medications Prenat Multivit/ [place]/Iron/Folic Ac () 1 tab DAILY PO Last admi nistered on 07/16/18 08:16; Admin Dose 1 TAB; Start 07/12/18 at 09:00 Ferrous Sulfate (Ferrous Sulfate (Ec)) 325 mg DAILY PO Last administered on 07/16/18 08:16; Admin Dose 325 MG; Start 07/12/18 at 09:00 Phenol (Cepastat Lozenge) 1 lozenge Q1H PRN MT COUGH Last administered on 07/15/18 22:24; Admin Dose 1 LOZENGE; Start 07/11/18 at 22:30 Terbutaline Sulfate (Brethine) 0.25 mg ONCE PRN SC CONTRACTIONS Last administered on 07/12/18 03:20; Admin Dose 0.25 MG; Start 07/12/18 at 01:30 Oxytocin/Lactated Ringer's 500 ml @ 0 mls/hr FOR AUGMENTATION IV Last administered on 07/12/18 14:02; Admin Dose 2 MLS/HR; Start 07/12/18 at 12:30 Oxytocin/Lactated Ringer's 500 ml @ 0 mls/hr ONCE PRN IV VAGINAL BLEEDING; Start 07/12/18 at 17:30 IV Flush (NS 3 ml) 3 ml PER PROTOCOL IV ; Start 07/12/18 at 17:30 Acetaminophen/ Hydrocodone Bitart ([place] (5/325)) 2 tab Q4H PRN PO PAIN LEVEL 7-10 Last administered on 07/14/18 09:15; Admin Dose 2 TAB; Start 07/12/18 at 17:30 Ibuprofen (Motrin) 600 mg Q6 PO Last administered on 07/16/18at 12:28; Admin Dose 600 MG; Start 07/13/18 at 18:00 Oxytocin/Lactated Ringer's 500 ml @ 0 mls/hr ONCE PRN IV VAGINAL BLEEDING; Start 07/12/18 at 17:30 Methylergonovine Maleate (Methergine) 0.2 mg ONCE PRN IM VAGINAL BLEEDING; Start 07/12/18 at 17:30 Carboprost Tromethamine (Hemabate) 250 mcg ONCE PRN IM VAGINAL BLEEDING; Start 07/12/18 at 17:30 Misoprostol (Cytotec) 1,000 mcg ONCE PRN LA VAGINAL BLEEDING; Start 07/12/18 at 17:30 Enoxaparin Sodium (Lovenox) 40 mg DAILY SC Last administered on 07/16/18at 08:21; Admin Dose 40 MG; Start 07/13/18 at 12:00 Pseudoephedrine HCl (Sudogest) 30 mg Q4H PRN PO COUGH Last administered on 07/14/18at 20:24; Admin Dose 30 MG; Start 07/13/18 at 20:00 Simethicone (Mylicon) 80 mg Q6 PO Last administered on 07/16/18at 12:28; Admin Dose 80 MG; Start 07/14/18 at 18:00 Docusate Sodium (Colace) 100 mg BID PO ; Start 07/15/18 at 14:00 CYNDY MELARA NP Jul 16, 2018 15:32
--- NOTE | 2018-07-16 18:30 | QN ---
Documentation Comment see d/c note [id number] THAO BUCKNER M.D. Jul 16, 2018 18:30
--- NOTE | 2018-07-16 19:10 | DS ---
DATE OF ADMISSION: 07/11/2018 DATE OF DISCHARGE: 07/16/2018 The patient was admitted 5 days ago secondary to a at 36 weeks and 4 days, cholestasis of , presumed, as well as an upper respiratory infection, was found to be in the hospital to have influenza A virus. Dr. Mock was consulted, perinatologist, who recommends delivery of the baby. The patient was started on induction of labor, was started on Tamiflu twice a day for the virus infection, was found to have a nonreassuring heart tracing. This resulted in a primary . no complications. Patient was taken back to the with routine postop orders and continue with the Tamiflu. Postop day #2, the patient developed shortness of breath, was found to have upper respiratory infection with what appeared to be a viral pneumonia. She was transferred to the ICU and was seen by the hospitalist here for further care. Upon admission, was placed on oxygen, will continue with routine postop medications, Tamiflu and premedications. Tylenol at that time was stopped. Patient was started on Dilaudid instead. Postop day #1 and 2, liver enzymes were increased dramatically. GI doctor was consulted. CT scan of the abdomen and pelvis and right upper quadrant ultrasound was done without any significant findings. Postop day #3 and 4, the liver enzymes were decreased dramatically. The patient was doing better, afebrile, ambulating, passing gas, urinating. Postop day #4, the patient was cleared to be discharged home by GI and Dr. Vora removed her sangeetha in the evening time and she was discharged home with stool softeners as well as [place] and Motrin. She will follow up with of GI in a couple of weeks and would follow up with me in 2 weeks as well. Dictated By: THAO BUCKNER MD, RA/LIZZY Conf#: [id number] DID#: [id number] CC: ENOCH VORA MD;*EndCC* MTDD
--- NOTE | 2018-07-16 20:19 | PN ---
Date/Time of Note Date/Time of Note DATE: 07/16/18 TIME: 20:17 Assessment/Plan VTE Prophylaxis Risk score (from Ns)>0 risk: 2 SCD applied (from Ns): Yes Pharmacological prophylaxis: NA/contraindicated Pharm contraindication: low risk/ambulating Lines/Catheters IV [facility] Saline Lock Urinary Cath still in place: No Assessment/Plan Assessment/Plan 28-year-old female status post , positive influenza A, cholestasis of , HPV, who was transferred to the ICU after with elevated temperatures, hypoxia and shortness of breath. # Shortness of breath hypoxia: Symptoms likely due to + influenza A. Patient has been on Tamiflu for the last 48 hours. Chest x-ray does show signs of possible pulmonary vascular congestion versus pneumonia. - Pulmonary symptoms resolved. On room air. Medically stable for discharge. - finished course of tamiflu # Elevated LFTs/cholestasis of : - AST ALT mid 100-200 range on admission. Of note patient was on Actigall before delivery. - After C section AST peaked at 700s, now downtrending - CT with enlarged, fatty liver. This is consistent with history of 40 lb weight gain during . - Ampicillin (now discontinued) and oseltamivir have both been associated in some cases with increased liver enzymes. - Hep C negative. Hep B nonimmune. - autoimmune hepatitis panel pending # Status post : Postop day #4 -Continue post delivery care for REDEVELOPMENT SPECIALIST recommendations -Multivitamin, iron - OB to remove sangeetha tonight. #Thrombocytopenia: Possibly secondary to . No signs of any bleeding. -Now resolving. #Urinary obstruction. - Resolved, now voiding without Moon. Result Diagram: 07/16/18 0447 07/16/18 0448 Results 24hrs Laboratory Tests Test 07/16/18 04:47 07/16/18 04:48 White Blood Count 7.0 Red Blood Count 3.62 L Hemoglobin 10.3 L Hematocrit 31.1 L Mean Corpuscular Volume 85.9 Mean Corpuscular Hemoglobin 28.5 L Mean Corpuscular Hemoglobin Concent 33.1 Red Cell Distribution Width 13.8 Platelet Count 196 Mean Platelet Volume 12.2 H Immature Granulocytes % 1.900 H Neutrophils % 74.1 Lymphocytes % 18.5 Monocytes % 5.3 Eosinophils % 0.1 Basophils % 0.1 Nucleated Red Blood Cells % 0.7 H Immature Granulocytes # 0.130 H Neutrophils # 5.2 Lymphocytes # 1.3 Monocytes # 0.4 Eosinophils # 0.0 Basophils # 0.0 Nucleated Red Blood Cells # 0.1 H Sodium Level 140 Potassium Level 3.6 Chloride Level 106 Carbon Dioxide Level 26 Anion Gap 8 Blood Urea Nitrogen 9 Creatinine 0.45 Est Glomerular Filtrat Rate mL/min > 60 Glucose Level 82 Calcium Level 8.0 L Total Bilirubin 0.1 L Direct Bilirubin 0.00 Indirect Bilirubin 0.1 Aspartate Amino Transf (AST/SGOT) 279 H Alanine Aminotransferase (ALT/SGPT) 94 H Alkaline Phosphatase 105 Total Protein 5.6 L Albumin 2.7 L Globulin 2.90 Albumin/Globulin Ratio 0.93 Subjective 24 Hr Interval Summary Free Text/Dictation No acute overnight events. Got dilaudid IV early in AM, afterwards pain well controlled on PO ibuprofen and tylenol. Exam/Review of Systems Vital Signs Vitals Vital Signs Date Temp Pulse Resp B/P (MAP) Pulse Ox O2 O2 Flow FiO2 Time Delivery Rate 07/16/18 99 26 97/60 (72) 100 Room Air 18:00 07/16/18 98.1 16:00 07/15/18 2.0 20:00 07/14/18 40 02:27 Intake and Output 07/15/18 07/15/18 07/16/18 1515:00 23:00 07:00 IntakeIntake Total 300 ml 300 ml 280 ml OutputOutput Total 2400 ml 250 ml 200 ml BalanceBalance -2100 ml 50 ml 80 ml Exam Gen: Well appearing obese woman mildly uncomfortably appearing. HEENT: Clear oropharynx, moist mucous membranes. Card: Regular rate and rhythm, no murmurs Pulm: Clear to auscultation bilaterally Abd: Soft, mildly tender lower quadrants, nondistended. Negative Barrientos's sign. Ext: No cyanosis/clubbing/edema. Skin: warm, dry, well perfused. ENOCH VORA MD Jul 16, 2018 20:19
== END 2018-07-16 19:24 | disposition home or self-care (01) | DRG 783 ==
LOC: OBT 18:22 → L-D 18:25 → OBT 21:15 → L-D 21:22 → PP1 07-12 02:11 → L-D 07-12 02:13 → PP1 07-12 22:06 → ICU 07-13 08:02
PROVIDERS: ADMIT Obstetrics & Gynecology; ATTEND Internal Medicine
PROC: 3E033VJ Introduction of Other Hormone into Peripheral Vein, Percutaneous Approach (ICD-10-PCS; 2018-07-11)
PROC: 10D00Z1 Extraction of Products of Conception, Low, Open Approach (ICD-10-PCS; principal; 2018-07-13)
PROC: 0UL70CZ Occlusion of Bilateral Fallopian Tubes with Extraluminal Device, Open Approach (ICD-10-PCS; 2018-07-13)
DX: O26.613 Liver and biliary tract disorders in pregnancy, third trimester (principal); K83.1 Obstruction of bile duct; J96.01 Acute respiratory failure with hypoxia; J10.08 Influenza due to other identified influenza virus with other specified pneumonia; J12.89 Other viral pneumonia; O99.113 Other diseases of the blood and blood-forming organs and certain disorders involving the immune mechanism complicating pregnancy, third trimester; O99.53 Diseases of the respiratory system complicating the puerperium; O76 Abnormality in fetal heart rate and rhythm complicating labor and delivery; Z3A.36 36 weeks gestation of pregnancy; Z37.0 Single live birth; Z30.2 Encounter for sterilization; O99.513 Diseases of the respiratory system complicating pregnancy, third trimester; O26.893 Other specified pregnancy related conditions, third trimester; R00.0 Tachycardia, unspecified; O90.81 Anemia of the puerperium; N13.9 Obstructive and reflux uropathy, unspecified; O99.89 Other specified diseases and conditions complicating pregnancy, childbirth and the puerperium
CPT/HCPCS: 36415; 36600; 71045; 74177; 76705; 76818; 78226; 80053; 80076; 81001; 82140; 82150; 82803; 83605; 83690; 83735; 83789; 84100; 84560; 85025; 85384; 85610; 85730; 86038; 86255; 86592; 86704; 86706; 86803; 86850; 86900; 86901; 86920; 87081; 87086; 87340; 87400; 88302; 93306; 96372; 99464; A9537; G0463; J0290; J0456; J0690; J0702; J1170; J1650; J1885; J1940; J2210; J2250; J2274; J2405; J2590; J2765; J3010; J3105; J7120; Q9967

== ENCOUNTER 2018-07-20 04:52 | Inpatient (IN) | payer BC ==
[2018-07-20] VITALS (12 sets, daily range): BP systolic 118–136; BP diastolic 54–92; PULSE 52–77; RESP 14–25; Ht 160 cm; Wt 80.9 kg
[~2018-07-20] VITALS: Ht 160 cm; Wt 80.9 kg
[~2018-07-20 04:52] MED LIST changes: -ACET500C5 PO; -ACET500T98 PO; -AMOX500C2 PO; -IBUP-1982 PO; -NITR-58 PO; -TRAM50TA2 PO
[2018-07-20] MEDS ORDERED: KETOROLAC 15 MG INJ IV STA (05:22)
[2018-07-20] MEDS ORDERED: morphine 4 MG/ML VIAL IV STA (05:22)
[2018-07-20] MEDS ORDERED: ONDANSETRON 4 MG INJ IV STA (05:22)
[2018-07-20] MEDS ORDERED: SOD CHLORIDE 0.9% 1,000 ML IV STA (05:22)
--- NOTE | 2018-07-20 06:16 | ERD ---
ER Documentation Chief Complaint Chief Complaint C/O ON AND OFF RT SIDED CHEST PAIN RADIATING TO BACK X3 DAYS HPI Very pleasant 28-year-old female who presents to the emergency room with right- sided chest pain. She describes sudden onset sharp right-sided chest pain radiating to the right shoulder that is pleuritic. No associated shortness of breath. Patient symptoms for approximately 3 days with the patient describes more sudden tonight. The patient had a recent [facility] hospital course with emergent delivery secondary to cholestasis complicated by influenza A and possible pneumonia. DISCHARGE SUMMARY DATE OF ADMISSION: 07/11/2018 DATE OF DISCHARGE: 07/16/2018 The patient was admitted 5 days ago secondary to a at 36 weeks and 4 days, cholestasis of , presumed, as well as an upper respiratory infection, was found to be in the hospital to have influenza A virus. Dr. Mock was consulted, perinatologist, who recommends delivery of the baby. The patient was started on induction of labor, was started on Tamiflu twice a day for the virus infection, was found to have a nonreassuring heart tracing. This resulted in a primary . ____ no complications. Patient was taken back to the with routine postop orders and continue with the Tamiflu. Po stop day #2, the patient developed shortness of breath, was found to have upper respiratory infection with what appeared to be a viral pneumonia. She was transferred to the ICU and was seen by the hospitalist here for further care. Upon admission, was placed on oxygen, will continue with routine postop medications, Tamiflu and premedications. Tylenol at that time was stopped. Patient was started on Dilaudid instead. Postop day #1 and 2, liver enzymes were increased dramatically. GI doctor was consulted. CT scan of the abdomen and pelvis and right upper quadrant ultrasound was done without any significant findings. Postop day #3 and 4, the liver enzymes were decreased dramatically. The patient was doing better, afebrile, ambulating, passing gas, urinating. Postop day #4, the patient was cleared to be discharged home by GI and Dr. Gaytan removed her sangeetha in the evening time and she was discharged home with stool softeners as well as [place]cd[place] and Motrin. She will follow up with ____ of GI in a couple of weeks and would follow up with me in 2 weeks as well. ROS All systems reviewed and are negative except as per history of present illness. Medications Home Meds Active Scripts Ibuprofen* (Motrin*) 600 Mg Tab, 600 MG PO Q6, #20 TAB Prov:JI CELIS MD 04/07/16 Discontinued Reported Medications Ibuprofen* (Ibuprofen*) 200 Mg Capsule, 800 MG PO PRN 10/13/11 Acetaminophen (Tylenol) 500 Mg Tab, 2 MG PO PRN 10/13/11 Discontinued Scripts Nitrofurantoin Monohyd Macrocr* (Macrobid*) 100 Mg Capsr, 100 MG PO BID for 7 Days, CAP Prov:ROSEMARY WOOD PA-C 03/01/18 Acetaminophen* (Tylophen*) 500 Mg Capsule, 1 CAP PO Q6H PRN for PAIN AND OR ELEVATED TEMP, #20 CAP Prov:NANCY LOPEZ 01/17/18 Tramadol HCl (Tramadol HCl) 50 Mg Tablet, 50 MG PO Q4 PRN for PAIN, #15 TAB Prov:JI CELIS MD 04/07/16 Ibuprofen* (Motrin*) 600 Mg Tab, 600 MG PO Q6, #14 TAB Prov:JI CELIS MD 06/08/15 Amoxicillin* (Amoxicillin*) 500 Mg Cap, 500 MG PO TID for 10 Days, CAP Prov:JI CELIS MD 06/08/15 Allergies Allergies: Coded Allergies: No Known Allergy (Verified , 11/08/16) PMhx/Soc History of Surgery: Yes (liposuction & breast implant, COSMETIC, ) Anesthesia Reaction: No Hx Neurological Disorder: No Hx Respiratory Disorders: No Hx Cardiac Disorders: No Hx Psychiatric Problems: No Hx Miscellaneous Medical Probl: No Hx Alcohol Use: Yes (socially) Hx Substance Use: No Hx Tobacco Use: No Smoking Status: Never smoker FmHx Family History: No diabetes Physical Exam Vitals Vital Signs Date Temp Pulse Resp B/P (MAP) Pulse Ox O2 O2 Flow FiO2 Time Delivery Rate 07/20/18 59 20 138/97 99 Room Air 06:32 (111) 07/20/18 97.6 80 19 150/96 97 05:03 (114) Physical Exam General: Well developed, well nourished, no acute distress Head: Normocephalic, atraumatic. Eyes: Pupils equally reactive, EOM intact ENT: Moist mucous membranes Neck: Supple, no lymphadenopathy Respiratory: Lungs clear bilaterally, no distress Cardiovascular: RRR, no murmurs, rubs, or gallops Abdominal: Soft, non-tender, non-distended, no peritoneal signs : Deferred MSK: No edema, no unilateral swelling, 5/5 strength Neurologic: Alert and oriented, moving all extremities, normal speech, no focal weakness, no cerebellar signs Skin: No rash Psych: Normal mood Result Diagram: 07/20/1852407/20/1825 Results 24 hrs Laboratory Tests Test 07/20/18 05:25 White Blood Count 7.8 10^3/ul Red Blood Count 4.26 10^6/ul Hemoglobin 11.8 g/dl Hematocrit 37.3 % Mean Corpuscular Volume 87.6 fl Mean Corpuscular Hemoglobin 27.7 pg Mean Corpuscular Hemoglobin Concent 31.6 g/dl Red Cell Distribution Width 14.1 % Platelet Count 374 10^3/UL Mean Platelet Volume 11.1 fl Immature Granulocytes % 1.700 % Neutrophils % 55.1 % Lymphocytes % 32.8 % Monocytes % 8.5 % Eosinophils % 1.5 % Basophils % 0.4 % Nucleated Red Blood Cells % 0.3 /100WBC Immature Granulocytes # 0.130 10^3/ul Neutrophils # 4.3 10^3/ul Lymphocytes # 2.6 10^3/ul Monocytes # 0.7 10^3/ul Eosinophils # 0.1 10^3/ul Basophils # 0.0 10^3/ul Nucleated Red Blood Cells # 0.0 10^3/ul Prothrombin Time 12.2 Sec Prothrombin Time Ratio 1.0 INR International Normalized Ratio 0.89 Activated Partial Thromboplast Time 29.1 Sec Sodium Level 142 mmol/L Potassium Level 3.9 mmol/L Chloride Level 112 mmol/L Carbon Dioxide Level 24 mmol/L Anion Gap 6 Blood Urea Nitrogen 9 mg/dl Creatinine 0.46 mg/dl Est Glomerular Filtrat Rate mL/min > 60 mL/min Glucose Level 95 mg/dl Calcium Level 9.0 mg/dl Troponin I 0.467 ng/ml B-Type Natriuretic Peptide 679 PG/ML Current Medications Medications Dose Sig/Maria Guadalupe Start Time Status Last (Trade) Ordered Route PRN Stop Time Admin Dose Reason Admin Sodium 1,000 ml @ Q1H STAT 07/20/18 DC 07/20/18 Chloride 1,000 mls/hr IV 05:22 05:42 07/20/18 06:21 Morphine 4 mg ONCE STAT 07/20/18 DC 07/20/18 Sulfate IV 05:22 05:43 (morphine) 07/20/18 05:24 Ondansetron 4 mg ONCE STAT 07/20/18 DC 07/20/18 HCl (Zofran IV 05:22 05:42 Inj) 07/20/18 05:24 Ketorolac 15 mg ONCE STAT 07/20/18 DC 07/20/18 Tromethamine IV 05:22 05:42 (Toradol) 07/20/18 05:24 Enoxaparin 80 mg ONCE SC 07/20/18 Sodium 07:00 (Lovenox) Ondansetron 4 mg ER BRIDGE 07/20/18 HCl (Zofran PRN IV 07:00 Inj) NAUSEA AND/OR 07/21/18 06:59 VOMITING 650 mg ER BRIDGE 07/20/18 Acetaminophen PRN PO MILD 07:00 (Tylenol PAIN(1-3)OR 07/21/18 06:59 Tab) ELEVATED TEMP Enoxaparin 80 mg Q12 SC 07/20/18 UNV Sodium 16:00 (Lovenox) IV Flush 3 ml PER 07/20/18 (NS 3 ml) PROTOCOL IV 07:30 Ondansetron 4 mg Q6H PRN 07/20/18 HCl (Zofran IV NAUSEA 07:30 Inj) AND/OR VOMITING Aspirin 81 mg DAILY PO 07/20/18 (Aspirin) 09:00 1 tab Q5M PRN 07/20/18 Nitroglycerin SL CHEST 07:30 PAIN (Nitroglyceri n (Sl Tab) 0.4 Mg) 650 mg Q6H PRN 07/20/18 Acetaminophen PO PAIN 07:30 (Tylenol LEVEL 1-3 OR Tab) FEVER Morphine 2 mg Q4H PRN 07/20/18 Sulfate IV PAIN 07:30 (morphine) LEVEL 7-10 Docusate 100 mg Q12H PRN 07/20/18 Sodium PO 07:30 (Colace) CONSTIPATION Bisacodyl 5 mg DAILY PRN 07/20/18 (Dulcolax) PO 07:30 CONSTIPATION Procedures/MDM EKG, MONITORS, & DIAGNOSTIC IMAGING: EKG: I reviewed and interpreted a 12-lead EKG. Rhythm: Normal sinus rhythm ST Changes: No contiguous ST segment elevations T waves: No contiguous T wave inversions Impression: [No evidence of acute cardiac ischemia] CTPA: PENDING TO BE FOLLOWED BY ER MD and ADMITTING MD LAB INTERPRETATION: * No significant leukocytosis * Elevated troponin and BNP MEDICAL DECISION MAKING: The patient presents with pleuritic right-sided chest pain that is sharp. The patient had a recent prolonged hospital course complicated by surgery, influenza and possible pneumonia. A broad differential exists but does include pulmonary embolism. Moderate risk profile is met therefore d-dimer not appropriate. The patient will benefit from labs, EKG, CT of the chest. Lower concern for pneumonia, consider pleurisy as well. Given the patient's age and limited risk profile this is not consistent with acute coronary syndrome and unlikely related to cardiac process. ER COURSE: * Patient given pain control medication * The patient's troponin and BNP are elevated highly suggestive of heart strain. The patient is still pending CTPA but given high likelihood of pulmonary embolism along with these laboratory findings Lovenox would be indicated. I discussed the case with Dr. Burden he states no contraindications to anticoagulation given recent . At this point the benefits outweigh the risks. Single dose will be appropriate while awaiting CTPA given the risks of complications related to pulmonary embolism * First dose of weight-based dosing of Lovenox provided. * Patient will likely require echocardiogram. CTPA still pending. Admission necessary. * The patient CTPA is still pending at the time of signout. Patient endorsed oncoming ER provider. They will follow up on the diagnostic imaging. Inpatient team will order echocardiogram and arrange for appropriate consultations. There still could be a consideration for cardiomyopathy but the patient exhibits no signs or symptoms concerning for CHF. Echocardiogram will help delineate this. CONSULTATION: FILM PRODUCER Dr. Burden DISPOSITION PLAN: Telemetry admission Accepting care team and consultations: I discussed the current laboratory data, diagnostic imaging and emergency care provided. Admitting team: Dr. Dorman Admitting team indication: Insurance directed Departure Diagnosis: Primary Impression: NSTEMI (non-ST elevated myocardial infarction) Additional Impression: Chest pain Chest pain type: chest pain on breathing Qualified Codes: R07.1 - Chest pain on breathing Condition: Stable SAGE HIGHTOWER MD Jul 20, 2018 06:16
[2018-07-20] MEDS ORDERED: ACETAMINOPHEN 325 MG TAB PO PRN ×2 (07:00→07:30)
[2018-07-20] MEDS ORDERED: ONDANSETRON 4 MG INJ IV PRN ×2 (07:00→07:30)
[2018-07-20] MEDS: ENOXAPARIN 80 MG/0.8 ML SYG SC SCH ×2 (07:02→07:18)
[2018-07-20] MEDS ORDERED: DOCUSATE SODIUM 100 MG CAP PO PRN (07:30)
[2018-07-20] MEDS ORDERED: NITROGLYCERIN (SL) 0.4 MG TAB SL PRN (07:30)
[2018-07-20] MEDS ORDERED: NACL 0.9% 3 ML SYG IV SCH (07:30)
[2018-07-20] MEDS ORDERED: BISACODYL (EC) 5 MG TAB PO PRN (07:30)
[2018-07-20] MEDS ORDERED: IOHEXOL 100 ML ONE (07:32)
[2018-07-20] MEDS ORDERED: SOD CHLORIDE 0.9% 100 ML ONE (07:32)
[2018-07-20] MEDS ORDERED: ASPIRIN 81 MG TAB PO SCH (09:00)
--- NOTE | 2018-07-20 09:37 | CONS ---
Date/Time of Note Date/Time of Note DATE: 07/20/18 TIME: 09:30 Assessment/Plan Assessment/Plan Hospital Course NSTEMI/pleuritic chest pain: chest CTA ruled out PE. EKG is unremarkable. 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 No effusion noted on CT. The other possibility in someone her age with no CAD risk factors and recent is coronary artery dissection. This does not fit the pleuritic chest pain but should be ruled out as well. Recent Influenza A s/p treatment -start ibuprofen 800mg TID -colchicine 0.6mg BID -will order cardiac CTA for tomorrow to avoid repeat contrast dose today -trend trops -d/c lovenox with concern for pericarditis and hemorrhage -repeat echo Result Diagram: 07/20/18 0525 07/20/18 0525 Results 24hrs Laboratory Tests Test 07/20/18 05:25 White Blood Count 7.8 Red Blood Count 4.26 Hemoglobin 11.8 L Hematocrit 37.3 Mean Corpuscular Volume 87.6 Mean Corpuscular Hemoglobin 27.7 L Mean Corpuscular Hemoglobin Concent 31.6 L Red Cell Distribution Width 14.1 Platelet Count 374 # Mean Platelet Volume 11.1 H Immature Granulocytes % 1.700 H Neutrophils % 55.1 Lymphocytes % 32.8 Monocytes % 8.5 Eosinophils % 1.5 Basophils % 0.4 Nucleated Red Blood Cells % 0.3 H Immature Granulocytes # 0.130 H Neutrophils # 4.3 Lymphocytes # 2.6 Monocytes # 0.7 Eosinophils # 0.1 Basophils # 0.0 Nucleated Red Blood Cells # 0.0 Prothrombin Time 12.2 Prothrombin Time Ratio 1.0 INR International Normalized Ratio 0.89 Activated Partial Thromboplast Time 29.1 Sodium Level 142 Potassium Level 3.9 Chloride Level 112 H Carbon Dioxide Level 24 Anion Gap 6 Blood Urea Nitrogen 9 Creatinine 0.46 Est Glomerular Filtrat Rate mL/min > 60 Glucose Level 95 Calcium Level 9.0 Troponin I 0.467 *H B-Type Natriuretic Peptide 679 H Consultation Date/Type/Reason Admit Date/Time Date of Consultation: Jul 20, 2018 Type of Consult Cardiology Reason for Consultation NSTEMI Requesting Provider: DONA SULLIVAN NP Hx of Present Illness 28 yo F with no prior medical history who was hospitalized here 10 days ago for respiratory failure and found to have severe Influenza A infection complicated by transaminitis. She was 36 weeks at the time and had a . The baby is doing well. She notes having intermittent chest pain since discharge a few days ago but worse this am, waking her up. The pain is mostly right sided and worse with inspiration. No change with change in position. No prior cardiac disease. She was found to have a troponin of 0.47. Her EKG is unremarkable. Chest CTA ruled out PE. She feels better after receiving toradol this am in the ER. per HPI Past Medical History per hPI Medications Current Medications Ondansetron HCl (Zofran Inj) 4 mg ER BRIDGE PRN IV NAUSEA AND/OR VOMITING; Start 07/20/18 at 07:00; Stop 07/21/18 at 06:59 Acetaminophen (Tylenol Tab) 650 mg ER BRIDGE PRN PO MILD PAIN(1-3)OR ELEVATED TEMP; Start 07/20/18 at 07:00; Stop 07/21/18 at 06:59 Enoxaparin Sodium (Lovenox) 80 mg Q12 SC ; Start 07/20/18 at 21:00 IV Flush (NS 3 ml) 3 ml PER PROTOCOL IV ; Start 07/20/18 at 07:30 Ondansetron HCl (Zofran Inj) 4 mg Q6H PRN IV NAUSEA AND/OR VOMITING; Start 07/20/18 at 07:30 Aspirin (Aspirin) 81 mg DAILY PO Last administered on 07/20/18at 09:05; Admin Dose 81 MG; Start 07/20/18 at 09:00 Nitroglycerin (Nitroglycerin (Sl Tab) 0.4 Mg) 1 tab Q5M PRN SL CHEST PAIN; Start 07/20/18 at 07:30 Acetaminophen (Tylenol Tab) 650 mg Q6H PRN PO PAIN LEVEL 1-3 OR FEVER; Start 07/20/18 at 07:30 Morphine Sulfate (morphine) 2 mg Q4H PRN IV PAIN LEVEL 7-10; Start 07/20/18 at 07:30 Docusate Sodium (Colace) 100 mg Q12H PRN PO CONSTIPATION; Start 07/20/18 at 07:30 Bisacodyl (Dulcolax) 5 mg DAILY PRN PO CONSTIPATION; Start 07/20/18 at 07:30 Allergies: Coded Allergies: No Known Allergy (Verified , 07/20/18) Past Surgical History Past Surgical Hx: other Social History Smoking Status: Never smoker Exam/Review of Systems Vital Signs Vitals Vital Signs Date Temp Pulse Resp B/P (MAP) Pulse Ox O2 O2 Flow FiO2 Time Delivery Rate 07/20/18 59 20 138/97 99 Room Air 06:32 (111) 07/20/18 97.6 05:03 Exam Constitutional: alert, oriented Psych: no complaints, nl mood/affect Head: normocephalic, atraumatic Neck: supple; No jvd Respiratory: clear to auscultation; No crackles/rales Cardiovascular: regular rate and rhythm; No edema, No systolic murmur Gastrointestinal: soft, non-tender Neurological: nl mental status, nl speech Medications Medications Current Medications Ondansetron HCl (Zofran Inj) 4 mg ER BRIDGE PRN IV NAUSEA AND/OR VOMITING; Start 07/20/18 at 07:00; Stop 07/21/18 at 06:59 Acetaminophen (Tylenol Tab) 650 mg ER BRIDGE PRN PO MILD PAIN(1-3)OR ELEVATED TEMP; Start 07/20/18 at 07:00; Stop 07/21/18 at 06:59 Enoxaparin Sodium (Lovenox) 80 mg Q12 SC ; Start 07/20/18 at 21:00 IV Flush (NS 3 ml) 3 ml PER PROTOCOL IV ; Start 07/20/18 at 07:30 Ondansetron HCl (Zofran Inj) 4 mg Q6H PRN IV NAUSEA AND/OR VOMITING; Start 07/20/18 at 07:30 Aspirin (Aspirin) 81 mg DAILY PO Last administered on 07/20/18at 09:05; Admin Dose 81 MG; Start 07/20/18 at 09:00 Nitroglycerin (Nitroglycerin (Sl Tab) 0.4 Mg) 1 tab Q5M PRN SL CHEST PAIN; Start 07/20/18 at 07:30 Acetaminophen (Tylenol Tab) 650 mg Q6H PRN PO PAIN LEVEL 1-3 OR FEVER; Start 07/20/18 at 07:30 Morphine Sulfate (morphine) 2 mg Q4H PRN IV PAIN LEVEL 7-10; Start 07/20/18 at 07:30 Docusate Sodium (Colace) 100 mg Q12H PRN PO CONSTIPATION; Start 07/20/18 at 07:30 Bisacodyl (Dulcolax) 5 mg DAILY PRN PO CONSTIPATION; Start 07/20/18 at 07:30 UMANG JARRELL Jul 20, 2018 09:37
--- NOTE | 2018-07-20 09:51 | HP ---
Date/Time of Note Date/Time of Note DATE: 07/20/18 TIME: 09:51 Assessment/Plan VTE Prophylaxis Pharmacological prophylaxis: NA/contraindicated Pharm contraindication: other (Suspected pericarditis.) Lines/Catheters [facility]ine [facility] Assessment/Plan Hospital Course 28-year-old female who is currently and had a complicated hospital course following delivery of her baby with on 07/13/2018 complicated by hypoxic respiratory failure secondary to influenza A and cholestasis of . The patient came to the emergency room on 07/20/2018 because of sudden onset of pleuritic chest pain with elevated troponins, who will be admitted to inpatient setting for further treatment and evaluation. 1. Chest pain. -Differentials include ACS, PE, pericarditis, demand ischemia. -Ruled out for PE. -Started on colchicine and ibuprofen by cardiology. -CT coronary angiogram ordered for 07/21/2018 to minimize use of IV dye within 24 hours. 2. NSTEMI. -Less likely ACS as per cardiology. -Lovenox discontinued because of concern for pericarditis and hemorrhage. -Continue colchicine and ibuprofen. -2D echocardiogram ordered. -Cardiology following. 3. period. -Continue supportive care. -Patient not breast-feeding. -Status post removal of sangeetha at the site. Plan: The patient will be admitted to inpatient telemetry floor. The patient will be started on a low-cholesterol diet. The patient will be started on DVT prophylaxis (bilateral SCDs). The patient will remain a full code. Activities will be as tolerated. The rest of the patient's management will be based on the clinical course, inputs from consultants, and the results of diagnostic studies. Based on the patient's clinical presentation, she most probably requires at least 1 midnight's stay for further management and evaluation of her clinical presentation. The patient was seen in collaboration with Dr. Gaytan. Result Diagram: 07/20/1852407/20/18524 Results 24hrs Laboratory Tests Test 07/20/18 05:25 07/20/18 09:08 White Blood Count 7.8 Red Blood Count 4.26 Hemoglobin 11.8 L Hematocrit 37.3 Mean Corpuscular Volume 87.6 Mean Corpuscular Hemoglobin 27.7 L Mean Corpuscular Hemoglobin Concent 31.6 L Red Cell Distribution Width 14.1 Platelet Count 374 # Mean Platelet Volume 11.1 H Immature Granulocytes % 1.700 H Neutrophils % 55.1 Lymphocytes % 32.8 Monocytes % 8.5 Eosinophils % 1.5 Basophils % 0.4 Nucleated Red Blood Cells % 0.3 H Immature Granulocytes # 0.130 H Neutrophils # 4.3 Lymphocytes # 2.6 Monocytes # 0.7 Eosinophils # 0.1 Basophils # 0.0 Nucleated Red Blood Cells # 0.0 Prothrombin Time 12.2 Prothrombin Time Ratio 1.0 INR International Normalized Ratio 0.89 Activated Partial Thromboplast Time 29.1 Sodium Level 142 Potassium Level 3.9 Chloride Level 112 H Carbon Dioxide Level 24 Anion Gap 6 Blood Urea Nitrogen 9 Creatinine 0.46 Est Glomerular Filtrat Rate mL/min > 60 Glucose Level 95 Calcium Level 9.0 Troponin I 0.467 *H Pending B-Type Natriuretic Peptide 679 H Creatine Kinase 110 Creatine Kinase Index Pending Creatinine Kinase MB (Mass) Pending HPI/ROS Admit Date/Time Admit Date/Time Hx of Present Illness Reason for admission: Chest pain, elevated troponins. Consultants 1. Maxime Ontiveros MD, Cardiology. This is a 28-year-old female who was recently discharged from [facility] on 07/16/2018 after a complicated hospital course after delivery of her baby with a on 07/13/2018 followed by hypoxia that necessitated intensive care unit stay from underlying influenza A. The patient returned back to the emergency room on 07/20/2018 with a chief complaint of pleuritic chest pain that woke her up from the middle of the sleep. Patient verbalized the chest pain as a sudden onset with radiation to the back. There was no associated dyspnea, nausea, vomiting, or diaphoresis. The patient also verbalized that the pain is worse with taking a deep inspiration. The patient denied any calf pain. The patient denied any fevers, chills, headache, or dizziness. She complained of minimal dysuria although denied any lower back pain, flank pain, urinary urgency or frequency. The patient verbalized that she has been not completely sedentary after she was discharged from the hospital. In the emergency room, the patient was noticed to have a troponin level of 0.467. The patient's 12-lead EKG was showing normal sinus rhythm. The patient underwent a CT pulmonary angiogram that was negative for any pulmonary embolism. The CT revealed mild cardiomegaly. The patient was treated with a single dose of subcutaneous Lovenox 80 mg along with Toradol and morphine in the emergency room. ROS Constitutional: no complaints Eyes: no complaints ENT: no complaints Respiratory: pain, cough Cardiovascular: chest pain Gastrointestinal: no complaints Genitourinary: dysuria Musculoskeletal: back pain Skin: no complaints Neurologic: no complaints Endocrine: no complaints Lymphatic: no complaints Psychological: no complaints Immunologic: no complaints PMH/Family/Social Past Medical History Medical History: no pertinent history Medications Current Medications Ondansetron HCl (Zofran Inj) 4 mg ER BRIDGE PRN IV NAUSEA AND/OR VOMITING; Start 07/20/18 at 07:00; Stop 07/21/18 at 06:59 Acetaminophen (Tylenol Tab) 650 mg ER BRIDGE PRN PO MILD PAIN(1-3)OR ELEVATED TEMP; Start 07/20/18 at 07:00; Stop 07/21/18 at 06:59 Enoxaparin Sodium (Lovenox) 80 mg Q12 SC ; Start 07/20/18 at 21:00 IV Flush (NS 3 ml) 3 ml PER PROTOCOL IV ; Start 07/20/18 at 07:30 Ondansetron HCl (Zofran Inj) 4 mg Q6H PRN IV NAUSEA AND/OR VOMITING; Start 07/20/18 at 07:30 Aspirin (Aspirin) 81 mg DAILY PO Last administered on 07/20/18at 09:05; Admin Dose 81 MG; Start 07/20/18 at 09:00 Nitroglycerin (Nitroglycerin (Sl Tab) 0.4 Mg) 1 tab Q5M PRN SL CHEST PAIN; Start 07/20/18 at 07:30 Acetaminophen (Tylenol Tab) 650 mg Q6H PRN PO PAIN LEVEL 1-3 OR FEVER; Start 07/20/18 at 07:30 Morphine Sulfate (morphine) 2 mg Q4H PRN IV PAIN LEVEL 7-10; Start 07/20/18 at 07:30 Docusate Sodium (Colace) 100 mg Q12H PRN PO CONSTIPATION; Start 07/20/18 at 07:30 Bisacodyl (Dulcolax) 5 mg DAILY PRN PO CONSTIPATION; Start 07/20/18 at 07:30 Ibuprofen (Motrin) 800 mg TID PO ; Start 07/20/18 at 09:30 Colchicine (Colchicine) 0.6 mg BID PO ; Start 07/20/18 at 09:30 Coded Allergies: No Known Allergy (Verified , 07/20/18) Past Surgical History Past Surgical Hx: other () Family History Significant Family History: no pertinent family hx Social History Lives with family. Alcohol Use: none Smoking Status: Never smoker Drug Use: cocaine Exam/Review of Systems Vital Signs Vitals Vital Signs Date Temp Pulse Resp B/P (MAP) Pulse Ox O2 O2 Flow FiO2 Time Delivery Rate 07/20/18 59 20 138/97 99 Room Air 06:32 (111) 07/20/18 97.6 05:03 Exam Exam General: Adequately build 28 year-old female lying in bed in no apparent distress. HEENT: Normocephalic, atraumatic. Eyes: Anicteric sclerae, conjunctivae clear. ENT: Nasal septum midline, oral mucosa moist. Neck supple, no JVD noticed. Respiratory: Bilaterally clear breath sounds. No use of accessory muscles of respiration. No adventitious breath sounds. Cardiovascular: S1, S2 heard. No murmurs or gallops. Chest wall pain elicited on palpation of the right chest wall. Abdomen: Soft and nondistended. Bowel sounds positive in all 4 quadrants. Steri-Strips over the incision Genitourinary: Deferred. Extremities: No cyanosis, no clubbing, no edema. Peripheral pulses palpable. Neurologic: Cranial nerves II through XII grossly intact. The patient is awake, alert, and oriented. Skin: Normal skin turgor. No skin rashes. Additional Comments CTPA IMPRESSION: 1. Negative for pulmonary embolism. 2. Mild cardiomegaly. Trace residual alveolar opacities in the perihilar upper lobes and bilateral lung bases compatible with mild edema or residual atelectasis, aeration significantly improved. 3. Pleural effusions demonstrated on previous imaging of 07/14/2018 have resolved. 12-Lead EKG Normal sinus rhythm. DONA SULLIVAN NP Jul 20, 2018 09:51
[2018-07-20] MEDS: IBUPROFEN 800 MG TAB PO SCH ×3 (12:12→21:22)
[2018-07-20] MEDS: COLCHICINE 0.6 MG TAB PO SCH ×2 (12:13→21:22)
[2018-07-20] MEDS: SOD CHLORIDE 0.9% 1,000 ML IV SCH ×2 (13:01→21:21)
[2018-07-20] MEDS: morphine 2 MG INJ IV PRN ×2 (14:12→21:24)
[2018-07-20] MEDS: KETOROLAC 30 MG INJ IV PRN (16:22)
[2018-07-20] MEDS ORDERED: ENOXAPARIN 80 MG/0.8 ML SYG SC SCH (21:00)
[2018-07-20] MEDS: FAMOTIDINE 20 MG TAB PO SCH (21:22)
[2018-07-21] VITALS (25 sets, daily range): BP systolic 115–168; BP diastolic 74–121; PULSE 54–89; RESP 7–28
[2018-07-21] MEDS: morphine 2 MG INJ IV PRN ×2 (04:03→21:35)
[2018-07-21] MEDS: COLCHICINE 0.6 MG TAB PO SCH ×2 (08:35→20:50)
[2018-07-21] MEDS: FAMOTIDINE 20 MG TAB PO SCH ×2 (08:35→20:50)
[2018-07-21] MEDS: IBUPROFEN 800 MG TAB PO SCH ×3 (08:35→20:50)
[2018-07-21] MEDS: SOD CHLORIDE 0.9% 1,000 ML IV SCH (08:39)
--- NOTE | 2018-07-21 09:58 | RADRPT ---
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 Physician: BENJAMIN BRANNON Quality: Adequate Procedures: Transthoracic echocardiogram with complete 2D, M-Mode, and doppler examination. Indications: Chest Pain. 2D/M Mode Doppler Measurement Value Normal Ranges Measurement Value Normal Ranges LVIDd 2D 4.6 3.5 - 5.6 cm AV Peak Joe 1.1 m/sec LVIDs 2D 3.3 2.1 - 4.1 cm AV Peak PG 5.0 mmHg FS 2D 28.8 % LVOT Peak Joe 0.8 m/sec LVPWd 2D 1.2 0.6 - 1.1 cm LVOT Peak PG 3.0 mmHg IVSd 2D 0.9 0.6 - 1.1 cm MV E Peak Joe 1.1 m/sec IVS/LVPW 2D 0.7 MV A Peak Joe 0.5 m/sec AoR Diam 2D 2.5 2.0 - 3.7 cm MV E/A 2.2 LA/Ao 2D 2 0 - 1 MV Decel Time 190 msec EDV 2D 96.1 cm3 MV E/A 2.2 ESV 2D 34.6 cm3 TV E Peak Joe 0.6 m/sec LA Dimen 2D 4.0 2.3 - 4.0 cm TR Peak Joe 2.6 m/sec TR Peak PG 28.0 mmHg RVSP 28.0 mmHg RA Pressure 3.0 Findings Left Ventricle: Lower limits of normal systolic function. Normal left ventricular cavity size. Normal left ventricular wall thickness. Ejection fraction is visually estimated at 50 %. Tissue Doppler/Mitral Doppler indices are within normal limits. Right Ventricle: Normal right ventricular size. Normal right ventricular systolic function. Left Atrium: The left atrium is normal in size. Right Atrium: The right atrium is normal in size. Mitral Valve: Normal appearance of the mitral valve. Mild mitral valve regurgitation. Aortic Valve: Normal appearance of the aortic valve. No aortic regurgitation. Tricuspid Valve: Normal appearance of the tricuspid valve. Estimated peak PA systolic pressure 31 mmHg. There is mild tricuspid regurgitation. Pulmonic Valve: Normal pulmonic valve appearance. There is trace pulmonic regurgitation. Pericardium: Trivial pericardial effusion. Aorta: Normal aortic root. IVC: Normal size and normal respiratory collapse consistent with normal right atrial pressure. Conclusions Lower limits of normal systolic function. Normal left ventricular cavity size. Normal left ventricular wall thickness. Ejection fraction is visually estimated at 50 %. Tissue Doppler/Mitral Doppler indices are within normal limits. No significant valvular stenosis or regurgitation seen. Trace to very small posterior pericardial effusion. Estimated peak PA systolic pressure 31 mmHg. Normal size and normal respiratory collapse consistent with normal right atrial pressure. Electronically Signed By: Maxime Ontiveros 21-Jul-2018 09:57:36 -0800 Patient Name: ZACK HERNANDEZ Study Date: 20-Jul-2018 [id number]
--- NOTE | 2018-07-21 11:04 | CONS ---
Date/Time of Note Date/Time of Note DATE: 07/21/18 TIME: 11:02 Assessment/Plan Assessment/Plan Hospital Course NSTEMI/pleuritic chest pain: Trop peak of 1.4. Chest CTA ruled out PE. EKG is unremarkable. 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 No effusion noted on CT. Trace on echo. EF around 50% possibly also fitting with perimyocarditis. The other possibility in someone her age with no CAD risk factors and recent is coronary artery dissection. This does not fit the pleuritic chest pain but should be ruled out as well. Recent Influenza A s/p treatment -ibuprofen 800mg TID -colchicine 0.6mg BID -cardiac CTA today Result Diagram: 07/21/18 0431 07/21/18 0431 Results 24hrs Laboratory Tests Test 07/20/18 16:12 07/21/18 04:31 Creatine Kinase 100 Creatine Kinase Index 2.8 Creatinine Kinase MB (Mass) 2.82 H Troponin I 1.080 *H White Blood Count 5.9 # Red Blood Count 3.56 L Hemoglobin 10.0 L Hematocrit 31.7 L Mean Corpuscular Volume 89.0 Mean Corpuscular Hemoglobin 28.1 L Mean Corpuscular Hemoglobin Concent 31.5 L Red Cell Distribution Width 14.4 Platelet Count 340 Mean Platelet Volume 11.4 H Immature Granulocytes % 1.700 H Neutrophils % 46.5 Lymphocytes % 39.6 Monocytes % 9.9 Eosinophils % 2.0 Basophils % 0.3 Nucleated Red Blood Cells % 0.0 Immature Granulocytes # 0.100 H Neutrophils # 2.8 Lymphocytes # 2.4 Monocytes # 0.6 Eosinophils # 0.1 Basophils # 0.0 Nucleated Red Blood Cells # 0.0 Sodium Level 144 Potassium Level 3.9 Chloride Level 115 H Carbon Dioxide Level 22 Anion Gap 7 Blood Urea Nitrogen 9 Creatinine 0.41 L Est Glomerular Filtrat Rate mL/min > 60 Glucose Level 78 Hemoglobin A1c 5.2 Calcium Level 8.2 L Phosphorus Level 3.4 Magnesium Level 2.1 Total Bilirubin 0.2 Direct Bilirubin 0.00 Indirect Bilirubin 0.2 Aspartate Amino Transf (AST/SGOT) 80 H Alanine Aminotransferase (ALT/SGPT) 44 Alkaline Phosphatase 85 Total Protein 5.9 L Albumin 2.9 L Globulin 3.00 Albumin/Globulin Ratio 0.96 Triglycerides Level 325 H Cholesterol Level 187 LDL Cholesterol, Calculated 99 HDL Cholesterol 23 L Cholesterol/HDL Ratio 8.1 Consultation Date/Type/Reason Admit Date/Time Jul 20, 2018 at 06:54 Initial Consult Date 07/20/18 Type of Consult Cardiology Requesting Provider: DONA SULLIVAN NP 24 HR Interval Summary Free Text/Dictation Trop peaked at 1.4 and downtrended. Still with mild pleuritic chest and back pain but better. Hemodynamically stable otherwise Exam/Review of Systems Vital Signs Vitals Vital Signs Date Temp Pulse Resp B/P (MAP) Pulse Ox O2 O2 Flow FiO2 Time Delivery Rate 07/21/18 64 15 122/78 95 Room Air 10:00 (93) 07/21/18 98.0 08:00 Intake and Output 07/20/18 07/20/18 07/21/18 1515:00 23:00 07:00 IntakeIntake Total 200 ml 1400 ml 920 ml OutputOutput Total 0 ml 240 ml 0 ml BalanceBalance 200 ml 1160 ml 920 ml Exam Constitutional: alert, oriented Psych: no complaints, nl mood/affect Head: normocephalic, atraumatic Neck: supple; No jvd Respiratory: diminished breath sounds; No clear to auscultation Cardiovascular: regular rate and rhythm; No edema, No systolic murmur Gastrointestinal: soft, non-tender; No distended Neurological: nl mental status, nl speech Medications Medications Current Medications IV Flush (NS 3 ml) 3 ml PER PROTOCOL IV ; Start 07/20/18 at 07:30 Ondansetron HCl (Zofran Inj) 4 mg Q6H PRN IV NAUSEA AND/OR VOMITING; Start 07/20/18 at 07:30 Nitroglycerin (Nitroglycerin (Sl Tab) 0.4 Mg) 1 tab Q5M PRN SL CHEST PAIN; Start 07/20/18 at 07:30 Acetaminophen (Tylenol Tab) 650 mg Q6H PRN PO PAIN LEVEL 1-3 OR FEVER; Start 07/20/18 at 07:30 Morphine Sulfate (morphine) 2 mg Q4H PRN IV PAIN LEVEL 7-10 Last administered on 07/21/18at 04:03; Admin Dose 2 MG; Start 07/20/18 at 07:30 Docusate Sodium (Colace) 100 mg Q12H PRN PO CONSTIPATION; Start 07/20/18 at 07:30 Bisacodyl (Dulcolax) 5 mg DAILY PRN PO CONSTIPATION; Start 07/20/18 at 07:30 Ibuprofen (Motrin) 800 mg TID PO Last administered on 07/21/18 08:35; Admin Dose 800 MG; Start 07/20/18 at 09:30 Colchicine (Colchicine) 0.6 mg BID PO Last administered on 07/21/18at 08:35; Admin Dose 0.6 MG; Start 07/20/18 at 09:30 Famotidine (Pepcid) 20 mg BID PO Last administered on 07/21/18 08:35; Admin Dose 20 MG; Start 07/20/18 at 21:00 Sodium Chloride 1,000 ml @ 100 mls/hr Q10H IV Last administered on 07/21/18at 08:39; Admin Dose 100 MLS/HR; Start 07/20/18 at 10:00 Ketorolac Tromethamine (Toradol) 30 mg Q6H PRN IV PAIN LEVEL 4-7 Last administered on 07/20/18at 16:22; Admin Dose 30 MG; Start 07/20/18 at 16:00; Stop 07/22/18 at 16:00 UMANG JARRELL Jul 21, 2018 11:04
[2018-07-21] MEDS ORDERED: IOHEXOL 100 ML ONE (11:25)
[2018-07-21] MEDS ORDERED: SOD CHLORIDE 0.9% 100 ML ONE (11:25)
[2018-07-21] MEDS ORDERED: NITROGLYCERIN AEROSOL (4.9 GM) ONE (11:49)
--- NOTE | 2018-07-21 13:05 | PN ---
Date/Time of Note Date/Time of Note DATE: 07/21/18 TIME: 13:03 Assessment/Plan VTE Prophylaxis Risk score (from Ns)>0 risk: 2 SCD applied (from Ns): Yes SCD contraindicated: low risk/ambulating Pharmacological prophylaxis: NA/contraindicated Pharm contraindication: low risk/ambulating Lines/Catheters IV C[facility]ter Type [facility]from [facility]): Peripheral IV Urinary Cath still in place: No Assessment/Plan Hospital Course Assessment and plan 1. Acute respiratory failure resolved 2. Recent influenza A 3. Chronic cholecystitis? 4. Recent section continue wound care 5. Myocarditis/pericarditis post viral likely, rule out any thoracic process 6. Anemia Subjective: Events noted no fever Objective: Vital signs stable Physical exam No pallor JVD Regular no murmur rub gallop Clear Bs dimin nt nd no RRG No edema Result Diagram: 07/21/1843007/21/181 Results 24hrs Laboratory Tests Test 07/20/18 16:12 07/21/18 04:28 07/21/18 04:31 Creatine Kinase 100 Creatine Kinase Index 2.8 Creatinine Kinase MB (Mass) 2.82 H Troponin I 1.080 *H Erythrocyte Sedimentation Rate 49 H C-Reactive Protein 1.1 H White Blood Count 5.9 # Red Blood Count 3.56 L Hemoglobin 10.0 L Hematocrit 31.7 L Mean Corpuscular Volume 89.0 Mean Corpuscular Hemoglobin 28.1 L Mean Corpuscular Hemoglobin Concent 31.5 L Red Cell Distribution Width 14.4 Platelet Count 340 Mean Platelet Volume 11.4 H Immature Granulocytes % 1.700 H Neutrophils % 46.5 Lymphocytes % 39.6 Monocytes % 9.9 Eosinophils % 2.0 Basophils % 0.3 Nucleated Red Blood Cells % 0.0 Immature Granulocytes # 0.100 H Neutrophils # 2.8 Lymphocytes # 2.4 Monocytes # 0.6 Eosinophils # 0.1 Basophils # 0.0 Nucleated Red Blood Cells # 0.0 Sodium Level 144 Potassium Level 3.9 Chloride Level 115 H Carbon Dioxide Level 22 Anion Gap 7 Blood Urea Nitrogen 9 Creatinine 0.41 L Est Glomerular Filtrat Rate mL/min > 60 Glucose Level 78 Hemoglobin A1c 5.2 Calcium Level 8.2 L Phosphorus Level 3.4 Magnesium Level 2.1 Total Bilirubin 0.2 Direct Bilirubin 0.00 Indirect Bilirubin 0.2 Aspartate Amino Transf (AST/SGOT) 80 H Alanine Aminotransferase (ALT/SGPT) 44 Alkaline Phosphatase 85 Total Protein 5.9 L Albumin 2.9 L Globulin 3.00 Albumin/Globulin Ratio 0.96 Triglycerides Level 325 H Cholesterol Level 187 LDL Cholesterol, Calculated 99 HDL Cholesterol 23 L Cholesterol/HDL Ratio 8.1 Exam/Review of Systems Vital Signs Vitals Vital Signs Date Temp Pulse Resp B/P (MAP) Pulse Ox O2 O2 Flow FiO2 Time Delivery Rate 07/21/18 63 12:00 07/21/18 15 122/78 95 Room Air 10:00 (93) 07/21/18 98.0 08:00 Intake and Output 07/20/18 07/20/18 07/21/18 1414:59 22:59 06:59 IntakeIntake Total 100 ml 1280 ml 1040 ml OutputOutput Total 0 ml 0 ml 240 ml BalanceBalance 100 ml 1280 ml 800 ml Medications Medications Current Medications IV Flush (NS 3 ml) 3 ml PER PROTOCOL IV ; Start 07/20/18 at 07:30 Ondansetron HCl (Zofran Inj) 4 mg Q6H PRN IV NAUSEA AND/OR VOMITING; Start 07/20/18 at 07:30 Nitroglycerin (Nitroglycerin (Sl Tab) 0.4 Mg) 1 tab Q5M PRN SL CHEST PAIN; Start 07/20/18 at 07:30 Acetaminophen (Tylenol Tab) 650 mg Q6H PRN PO PAIN LEVEL 1-3 OR FEVER; Start 07/20/18 at 07:30 Morphine Sulfate (morphine) 2 mg Q4H PRN IV PAIN LEVEL 7-10 Last administered on 07/21/18at 04:03; Admin Dose 2 MG; Start 07/20/18 at 07:30 Docusate Sodium (Colace) 100 mg Q12H PRN PO CONSTIPATION; Start 07/20/18 at 07:30 Bisacodyl (Dulcolax) 5 mg DAILY PRN PO CONSTIPATION; Start 07/20/18 at 07:30 Ibuprofen (Motrin) 800 mg TID PO Last administered on 07/21/18at 08:35; Admin Dose 800 MG; Start 07/20/18 at 09:30 Colchicine (Colchicine) 0.6 mg BID PO Last administered on 07/21/18at 08:35; Admin Dose 0.6 MG; Start 07/20/18 at 09:30 Famotidine (Pepcid) 20 mg BID PO Last administered on 07/21/18at 08:35; Admin Dose 20 MG; Start 07/20/18 at 21:00 Sodium Chloride 1,000 ml @ 100 mls/hr Q10H IV Last administered on 07/21/18at 08:39; Admin Dose 100 MLS/HR; Start 07/20/18 at 10:00 Ketorolac Tromethamine (Toradol) 30 mg Q6H PRN IV PAIN LEVEL 4-7 Last administered on 07/20/18at 16:22; Admin Dose 30 MG; Start 07/20/18 at 16:00; Stop 07/22/18 at 16:00 JUAN JACKSON MD Jul 21, 2018 13:05
[2018-07-21] MEDS: KETOROLAC 30 MG INJ IV PRN (17:28)
[2018-07-22] VITALS (12 sets, daily range): BP systolic 124–139; BP diastolic 70–93; PULSE 49–82; RESP 9–22
[2018-07-22] MEDS: morphine 2 MG INJ IV PRN (04:01)
[2018-07-22] MEDS: FAMOTIDINE 20 MG TAB PO SCH (08:31)
[2018-07-22] MEDS: COLCHICINE 0.6 MG TAB PO SCH (08:31)
[2018-07-22] MEDS: IBUPROFEN 800 MG TAB PO SCH ×2 (08:31→13:00)
[2018-07-22] MEDS ORDERED: IBUP800T48 PO (09:41)
[2018-07-22] MEDS ORDERED: PANT40TA4 PO (09:41)
[2018-07-22] MEDS ORDERED: Colchicine PO (09:41)
--- NOTE | 2018-07-22 13:35 | PDOCDIS ---
Discharge Instructions DIAGNOSIS Discharge Diagnosis Pericarditis CONDITION [id number] Patient Condition: [id number] Good HOME CARE INSTRUCTIONS: [id number] Special Diet: Wynir2d LOW FAT, LOW CHOLESTEROL DIET ACTIVITY: [id number] Activity Restrictions: [id number] Slowly Increase Activity FOLLOW UP/APPOINTMENTS Follow-up Plan 1. Take all medication as prescribed. 2. Recommend no while on cochicine. 3. See your primary care doctor in 1-2 weeks. 4. Return to the emergency if you get worsening chest pain; or new chest pressure which worsens on exertion. ENOCH VORA MD Jul 22, 2018 13:35
--- NOTE | 2018-07-22 15:11 | DS ---
Date/Time of Note Date/Time of Note DATE: 07/22/18 TIME: 15:07 Discharge Summary Admission/Discharge Info Admit Date/Time Jul 20, 2018 at 06:54 Discharge Date/Time Jul 22, 2018 Discharge Diagnosis Pericarditis Patient Condition: Good Consults 1. Maxime Ontiveros MD, Cardiology. Procedures None Hx of Present Illness This is a 28-year-old female who was recently discharged from [facility] on 07/16/2018 after a complicated hospital course after delivery of her baby with a on 07/13/2018 followed by hypoxia that necessitated intensive care unit stay from underlying influenza A. The patient returned back to the emergency room on 07/20/2018 with a chief complaint of pleuritic chest pain that woke her up from the middle of the sleep. Patient verbalized the chest pain as a sudden onset with radiation to the back. There was no associated dyspnea, nausea, vomiting, or diaphoresis. The patient also verbalized that the pain is worse with taking a deep inspiration. The patient denied any calf pain. The patient denied any fevers, chills, headache, or dizziness. She complained of minimal dysuria although denied any lower back pain, flank pain, urinary urgency or frequency. The patient verbalized that she has been not completely sedentary after she was discharged from the hospital. In the emergency room, the patient was noticed to have a troponin level of 0.467. The patient's 12-lead EKG was showing normal sinus rhythm. The patient underwent a CT pulmonary angiogram that was negative for any pulmonary embolism. The CT revealed mild cardiomegaly. The patient was treated with a single dose of subcutaneous Lovenox 80 mg along with Toradol and morphine in the emergency room. Hospital Course For her chest pain, she was evaluated by Dr. Ontiveros. She got a CTPA to rule out PE. We had a very low suspicion of ACS because of her young age and the pleuritic quality of the pain. She got a cardiac CT which was had a calcium score of 0, making it even less likely. She was started on colchicine and ibuprofen for presumed pericarditis with significant improvement. She will be discharged on this regimen. She did briefly require some IV dilaudid for her C section pain, but on my exam the abdominal exam is consistent with that expected for a recent C section. Home Meds Active Scripts Pantoprazole* (Pantoprazole*) 40 Mg Tablet.dr, 40 MG PO AC BREAKFAST, #30 TAB Prov:ENOCH VORA MD 07/22/18 [Colchicine] 0.6 MG TAB No Conflict Check, 0.6 MG PO BID, #60 3 Refills Prov:ENOCH VORA MD 07/22/18 Ibuprofen* (Motrin*) 800 Mg Tab, 800 MG PO TID for 7 Days, #21 TAB Take Three times per day for 1 week (07/21-07/27) then twice per day for 1 week (07/28-08/03) then daily for 1 week (08/04-08/11) Prov:ENOCH VORA MD 07/22/18 Discontinued Reported Medications Ibuprofen* (Ibuprofen*) 200 Mg Capsule, 800 MG PO PRN 10/13/11 Acetaminophen (Tylenol) 500 Mg Tab, 2 MG PO PRN 10/13/11 Discontinued Scripts Ibuprofen* (Motrin*) 600 Mg Tab, 600 MG PO Q6, #20 TAB Prov:JI CELIS MD 04/07/16 Nitrofurantoin Monohyd Macrocr* (Macrobid*) 100 Mg Capsr, 100 MG PO BID for 7 Days, CAP Prov:ROSEMARY WOOD PA-C 03/01/18 Acetaminophen* (Tylophen*) 500 Mg Capsule, 1 CAP PO Q6H PRN for PAIN AND OR ELEVATED TEMP, #20 CAP Prov:NANCY LOPEZ 01/17/18 Tramadol HCl (Tramadol HCl) 50 Mg Tablet, 50 MG PO Q4 PRN for PAIN, #15 TAB Prov:JI CELIS MD 04/07/16 Ibuprofen* (Motrin*) 600 Mg Tab, 600 MG PO Q6, #14 TAB Prov:JI CELIS MD 06/08/15 Amoxicillin* (Amoxicillin*) 500 Mg Cap, 500 MG PO TID for 10 Days, CAP Prov:JI CELIS MD 06/08/15 Follow-up Plan 1. Take all medication as prescribed. 2. Recommend no while on cochicine. 3. See your primary care doctor in 1-2 weeks. 4. Return to the emergency if you get worsening chest pain; or new chest pressure which worsens on exertion. Primary Care Provider Not On Staff Doctor Time spent on discharge: > 30 minutes Pending Labs Laboratory Tests Test 07/22/18 04:42 White Blood Count 9.0 10^3/ul (4.8-10.8) Red Blood Count 3.77 10^6/ul (4.20-5.40) Hemoglobin 10.5 g/dl (12.0-16.0) Hematocrit 33.0 % (37.0-47.0) Mean Corpuscular Volume 87.5 fl (82.0-101.0) Mean Corpuscular Hemoglobin 27.9 pg (29.0-33.0) Mean Corpuscular Hemoglobin Concent 31.8 g/dl (32.0-37.0) Red Cell Distribution Width 14.3 % (11.5-14.5) Platelet Count 374 10^3/UL (140-415) Mean Platelet Volume 11.2 fl (7.4-10.4) Immature Granulocytes % 1.000 % (0.001-0.429) Neutrophils % 66.1 % (39.0-77.0) Lymphocytes % 21.5 % (15.0-51.0) Monocytes % 9.5 % (0.0-11.0) Eosinophils % 1.6 % (0.0-7.0) Basophils % 0.3 % (0.0-2.0) Nucleated Red Blood Cells % 0.0 /100WBC (0.0-0.0) Immature Granulocytes # 0.090 10^3/ul (0.0-0.031) Neutrophils # 5.9 10^3/ul (1.6-7.5) Lymphocytes # 1.9 10^3/ul (0.8-2.9) Monocytes # 0.9 10^3/ul (0.3-0.9) Eosinophils # 0.1 10^3/ul (0.0-0.5) Basophils # 0.0 10^3/ul (0.0-0.1) Nucleated Red Blood Cells # 0.0 10^3/ul (0.0-0.0) Sodium Level 141 mmol/L (135-144) Potassium Level 3.8 mmol/L (3.5-5.1) Chloride Level 112 mmol/L (97-110) Carbon Dioxide Level 22 mmol/L (21-31) Anion Gap 7 (5-13) Blood Urea Nitrogen 10 mg/dl (7-20) Creatinine 0.44 mg/dl (0.44-1.00) Est Glomerular Filtrat Rate mL/min > 60 mL/min (>60) Glucose Level 87 mg/dl (70-220) Calcium Level 8.8 mg/dl (8.4-10.2) Magnesium Level 2.0 mg/dl (1.7-2.5) Total Bilirubin 0.3 mg/dl (0.2-1.3) Direct Bilirubin 0.00 mg/dl (0.00-0.20) Indirect Bilirubin 0.3 mg/dl (0-1.1) Aspartate Amino Transf (AST/SGOT) 59 IU/L (15-46) Alanine Aminotransferase (ALT/SGPT) 41 IU/L (13-69) Alkaline Phosphatase 87 IU/L (42-121) Total Protein 6.2 g/dl (6.1-8.1) Albumin 3.2 g/dl (3.3-4.9) Globulin 3.00 g/dl (1.3-3.2) Albumin/Globulin Ratio 1.06 ENOCH VORA MD Jul 22, 2018 15:11
== END 2018-07-22 14:50 | disposition home or self-care (01) | DRG 776 ==
LOC: E/R 04:52 → ICU 06:54 → E/R 12:15 → ICU 14:02
PROVIDERS: ADMIT Family Medicine; ATTEND Internal Medicine
DX: O90.89 Other complications of the puerperium, not elsewhere classified (principal); I30.1 Infective pericarditis
CPT/HCPCS: 36415; 71275; 75574; 80048; 80053; 80061; 80076; 81001; 82550; 82553; 83036; 83735; 83880; 84100; 84484; 85025; 85610; 85651; 85730; 86140; 87081; 87086; 93005; 93306; 96374; 96375; J1885; J2270; J2405; J7030; Q9967

== ENCOUNTER 2018-12-24 04:05 | Emergency (ER) | payer BC ==
[~2018-12-24] VITALS: Ht 165.1 cm; Wt 79.3 kg
[~2018-12-24 04:05] MED LIST changes: +Colchicine PO; -IBUP-1542 PO; +IBUP800T48 PO; +PANT40TA4 PO
[2018-12-24 04:06] VITALS: BP 131/87; PULSE 74; RESP 19; Ht 165.1 cm; Wt 79.3 kg
[2018-12-24] MEDS ORDERED: LIDOCAINE/MYLANTA 40 ML BTL PO ONE ×2 (05:30→06:00)
--- NOTE | 2018-12-26 21:23 | ERD ---
ER Documentation Chief Complaint Chief Complaint RUQ ABD PAIN WITH N/V X1.5HRS HPI 28yo F presents to ED with complaint of RUQ abdominal pain x 1.5hrs [employer]. Pt states to have been sleeping when awoken with right upper quadrant/epigastric pain radiating to her back and chest. She states pain began as a 9/10, but has now decreased to a 6/10. She has not taken any medication to alleviate her symptoms. She notes 2 episodes of vomiting since symptoms began, but denies diarrhea, fevers, chills, or sweats. Pt denies chronic medical conditions, non- smoker, no OCP use, no hx of cardiac disease. ROS All systems reviewed and are negative except as per history of present illness. CONSTITUTIONAL: Denies fever, Denies chills, Denies general weakness. SKIN: Denies itching, Denies rash, Denies redness. RESPIRATORY: Denies SOB, Denies cough. CARDIOVASCULAR: Denies chest pain, Denies palpitations GI:Admits to abdominal pain, admits to vomiting. Denies diarrhea. : Denies dysuria, Denies urgency, Denies hematuria NEURO: Denies focal weakness, Denies slurred speech, Denies gait problems PSYCHIATRIC: Denies change mental status, Denies confusion Medications Home Meds Active Scripts Pantoprazole* (Pantoprazole*) 40 Mg Tablet.dr, 40 MG PO AC BREAKFAST, #30 TAB Prov:ENOCH VORA MD 07/22/18 [Colchicine] 0.6 MG TAB No Conflict Check, 0.6 MG PO BID, #60 3 Refills Prov:ENOCH VORA MD 07/22/18 Ibuprofen* (Motrin*) 800 Mg Tab, 800 MG PO TID for 7 Days, #21 TAB Take Three times per day for 1 week (07/21-07/27) then twice per day for 1 week (07/28-08/03) then daily for 1 week (08/04-08/11) Prov:ENOCH VORA MD 07/22/18 Allergies Allergies: Coded Allergies: No Known Allergy (Verified , 07/20/18) PMhx/Soc History of Surgery: Yes ( July 2018) Anesthesia Reaction: No Hx Neurological Disorder: No Hx Respiratory Disorders: No Hx Cardiac Disorders: No Hx Psychiatric Problems: No Hx Miscellaneous Medical Probl: Yes (S/P ) Hx Alcohol Use: Yes (Socially) Hx Substance Use: No Hx Tobacco Use: No Smoking Status: Never smoker FmHx Family History: No diabetes, No coronary disease, No other Physical Exam Vitals Vital Signs Date Temp Pulse Resp B/P (MAP) Pulse Ox O2 O2 Flow FiO2 Time Delivery Rate 12/24/18 98.2 74 19 131/87 97 04:06 (102) Physical Exam GEN: Alert and coherent. Well appearing, non-toxic. No acute distress. HEAD: Normocephalic, atraumatic. EYES: EOMI. PERRL. No conjunctival injection. No scleral icterus. ENT: Nasal passages patent. Moist mucous membranes. NECK: Supple. Full range of motion. Trachea midline. No lymphadenopathy. RESP: No tachypnea. Clear to auscultation bilaterally. No wheezing, rales or rhonchi. No accessory muscle use. CV: Regular rate and rhythm. No murmurs, rubs, or gallops. ABD: Soft, non-distended. Positive TTP epigastrum and RUQ. Negative medina sign. No RLQ TTP, No rebound tenderness or rigidity. Negative psoas sign. No mcburney point tenderness. No palpable masses. Positive bowel sounds in all four quadrants. BACK: Full ROM. No CVA tenderness. EXT: No deformity. No clubbing, cyanosis or edema. Equal pulses x 4. SKIN: Warm and dry. No obvious rashes, erythema, or petechiae. NEURO: Alert and oriented x3. Appropriate speech, mood and affect. Face is symmetric. Speech is normal. CN II-XII intact. Moves all extremities equally. Ambulates with a strong, steady gait. Result Diagram: 12/24/1814 12/24/18513 Results 24 hrs Laboratory Tests Test 12/24/18 05:10 12/24/18 05:14 Bedside Urine pH (LAB) 7.5 Bedside Urine Protein (LAB) 1+ Bedside Urine Glucose (UA) Negative Bedside Urine Ketones (LAB) Negative Bedside Urine Blood Negative Bedside Urine Nitrite (LAB) Negative Bedside Urine Leukocyte Esterase (L Negative White Blood Count 7.8 10^3/ul Red Blood Count 4.47 10^6/ul Hemoglobin 13.0 g/dl Hematocrit 39.4 % Mean Corpuscular Volume 88.1 fl Mean Corpuscular Hemoglobin 29.1 pg Mean Corpuscular Hemoglobin Concent 33.0 g/dl Red Cell Distribution Width 13.3 % Platelet Count 220 10^3/UL Mean Platelet Volume 11.7 fl Immature Granulocytes % 0.300 % Neutrophils % 53.3 % Lymphocytes % 34.4 % Monocytes % 8.8 % Eosinophils % 2.8 % Basophils % 0.4 % Nucleated Red Blood Cells % 0.0 /100WBC Immature Granulocytes # 0.020 10^3/ul Neutrophils # 4.2 10^3/ul Lymphocytes # 2.7 10^3/ul Monocytes # 0.7 10^3/ul Eosinophils # 0.2 10^3/ul Basophils # 0.0 10^3/ul Nucleated Red Blood Cells # 0.0 10^3/ul Prothrombin Time 12.7 Sec Prothrombin Time Ratio 1.0 INR International Normalized Ratio 0.94 Activated Partial Thromboplast Time 27.8 Sec Urine Color YELLOW Urine Clarity TURBID Urine pH 8.0 Urine Specific Logan 1.023 Urine Ketones NEGATIVE mg/dL Urine Nitrite NEGATIVE mg/dL Urine Bilirubin NEGATIVE mg/dL Urine Urobilinogen NEGATIVE mg/dL Urine Leukocyte Esterase NEGATIVE Hilario/ul Urine Microscopic RBC 3 /HPF Urine Microscopic WBC 1 /HPF Urine Squamous Epithelial Cells FEW /HPF Urine Amorphous Crystals MANY /HPF Urine Mucus MANY /HPF Urine Hemoglobin NEGATIVE mg/dL Urine Glucose NEGATIVE mg/dL Urine Total Protein NEGATIVE mg/dl Sodium Level 145 mmol/L Potassium Level 3.9 mmol/L Chloride Level 106 mmol/L Carbon Dioxide Level 28 mmol/L Anion Gap 11 Blood Urea Nitrogen 10 mg/dl Creatinine 0.52 mg/dl Est Glomerular Filtrat Rate mL/min > 60 mL/min Glucose Level 97 mg/dl Calcium Level 9.9 mg/dl Total Bilirubin 0.7 mg/dl Direct Bilirubin 0.00 mg/dl Indirect Bilirubin 0.7 mg/dl Aspartate Amino Transf (AST/SGOT) 23 IU/L Alanine Aminotransferase (ALT/SGPT) 37 IU/L Alkaline Phosphatase 59 IU/L Total Protein 7.7 g/dl Albumin 4.5 g/dl Globulin 3.20 g/dl Albumin/Globulin Ratio 1.40 Lipase 132 U/L Current Medications Medications Dose Sig/Maria Guadalupe Start Time Status Last (Trade) Ordered Route PRN Stop Time Admin Dose Reason Admin 40 ml ONCE ONCE 12/24/18 Cancel Miscellaneous PO 05:30 Medication 12/24/18 05:31 (Gi Cocktail (2)) 40 ml ONCE ONCE 12/24/18 DC 12/24/18 Miscellaneous PO 06:00 05:36 Medication 12/24/18 06:01 (Gi Cocktail (2)) Procedures/MDM EKG: Reviewed by Dr. Estela Bowman Rate/Rhythm: Sinus suzanna with rate of 55bpm QRS, ST, T-waves: No changes consistent w/ acute ischemia Impression: Otherwise normal EKG, No evidence of ischemia or arrhythmia PROCEDURE: XR Chest. FINDINGS: Hypoventilatory chest. Cardiomediastinal silhouette is normal. Pulmonary vasculature is normal. Lungs and costophrenic angles are clear. Bones and soft tissues are unremarkable. IMPRESSION: No evidence of acute cardiopulmonary disease. PROCEDURE: US Abdomen. FINDINGS: No evidence cholelithiasis gallbladder wall thickening or pericholecystic fluid. Common bile duct normal limits in size maximal transverse diameter 3.56 mm. No intrahepatic biliary ductal dilation. Liver is enlarged maximal sagittal dimension 18.5 cm. Hepatic fatty infiltration without focal hepatic lesions. The pancreas could not be visualized due to overlying bowel gas. Normal portal venous flow. Right kidney normal in size maximal sagittal dimension 11.26 cm. Normal right renal parenchymal echogenicity without hydronephrosis intra renal mass or calculus. IMPRESSION: 1. Unremarkable gallbladder without biliary ductal dilation. 2. Hepatomegaly with hepatic fatty infiltration. No focal lesions. 3. Unremarkable right kidney. MDM: This is an otherwise healthy, pleasant 28yo F who presents to the ED for evaluation of RUQ/epigastric pain radiating to the chest and back. Patient had extensive evaluation, including laboratory and ancillary studies. Labs and ancillary tests were reviewed and no critical abnormalities were noted. No evidence of infectious etiology, no evidence of metabolic derangement or electrolyte abnormalities. Low suspicion for appendicitis, bowel obstruction, viscous perforation, AAA or other serious surgical pathology. Doubt cardiac etiology as risk factors low and EKG unremarkable. Low suspicion for pulmonary etiology. The patients condition improved during their stay after the administration of GI cocktail and serial evaluations with stable vital signs upon re-evaluation. Advised pt symptoms likely d/t gas as US imaging noted bowel gas, otherwise unremarkable. Counseled regarding supportive treatment. Close PCP follow-up in 24 hours was reinforced and patient was told to return to ED within 8-12hours if symptoms are worse, vomiting, fever, other concerns. Differential diagnosis includes but is not limited to appendicitis, cholecystitis, cholelithiasis, diverticulitis, cystitis, nephritis, nephrolithiasis, gastroenteritis, pneumonia, bowel obstruction, colitis, malignancy, peptic ulcer disease, musculoskeletal etiology, intra-abdominal abscess. Pt expressed verbal understanding and agreement to treatment plan. All questions addressed and answered. Departure Diagnosis: Primary Impression: Abdominal pain Abdominal location: right upper quadrant Qualified Codes: R10.11 - Right upper quadrant pain Additional Impression: Gas bloat syndrome Condition: Stable Patient Instructions: Abdominal Pain MARIANA HESS PA-C Dec 26, 2018 21:14
== END 2018-12-24 06:35 | disposition home or self-care (01) ==
LOC: FTE 04:05
DX: R10.11 Right upper quadrant pain (principal); R14.0 Abdominal distension (gaseous)
CPT/HCPCS: 71045; 76705; 80053; 81001; 83690; 85025; 85610; 85730; 93005; Z7610; 36415; 81003

== ENCOUNTER 2019-01-04 18:28 | Emergency (ER) | payer BC ==
[~2019-01-04] VITALS: Ht 165.1 cm; Wt 79.7 kg
[2019-01-04 18:29] VITALS: BP 126/74; PULSE 104; RESP 18; Ht 165.1 cm; Wt 79.7 kg
[2019-01-04] MEDS ORDERED: ACET325T33 PO (19:57)
--- NOTE | 2019-01-04 19:57 | ERD ---
ER Documentation Chief Complaint Chief Complaint LAC TO RIGHT HEEL HPI 28-year-old female, presents the emergency department, complaining of laceration to the right heel that occurred approximately 1 hour prior to arrival after sustaining direct trauma with an unknown object. The patient denies distal weakness, numbness or tingling. ROS All systems reviewed and are negative except as per history of present illness. Medications Home Meds Active Scripts Pantoprazole* (Pantoprazole*) 40 Mg Tablet.dr, 40 MG PO AC BREAKFAST, #30 TAB Prov:ENOCH VORA MD 07/22/18 [Colchicine] 0.6 MG TAB No Conflict Check, 0.6 MG PO BID, #60 3 Refills Prov:ENOCH VORA MD 07/22/18 Ibuprofen* (Motrin*) 800 Mg Tab, 800 MG PO TID for 7 Days, #21 TAB Take Three times per day for 1 week (07/21-07/27) then twice per day for 1 week (07/28-08/03) then daily for 1 week (08/04-08/11) Prov:ENOCH VORA MD 07/22/18 Allergies Allergies: Coded Allergies: No Known Allergy (Verified , 07/20/18) PMhx/Soc History of Surgery: Yes ( July 2018) Anesthesia Reaction: No Hx Neurological Disorder: No Hx Respiratory Disorders: No Hx Cardiac Disorders: No Hx Psychiatric Problems: No Hx Miscellaneous Medical Probl: Yes (S/P ) Hx Alcohol Use: Yes (Socially) Hx Substance Use: No Hx Tobacco Use: No Smoking Status: Never smoker FmHx Family History: No diabetes, No coronary disease Physical Exam Vitals Vital Signs Date Temp Pulse Resp B/P (MAP) Pulse Ox O2 O2 Flow FiO2 Time Delivery Rate 01/04/19 98.4 104 18 126/74 97 18:29 (91) Physical Exam Const: No acute distress Head: Atraumatic Eyes: Normal Conjunctiva ENT: Normal External Ears, Nose and Mouth. Neck: Full range of motion. No meningismus. Resp: Clear to auscultation bilaterally Cardio: Regular rate and rhythm, no murmurs Abd: Soft, non tender, non distended. Normal bowel sounds Skin: 3 cm linear laceration of the right heel no petechiae or rashes Back: No midline or flank tenderness Ext: No cyanosis, or edema Neur: Awake and alert Psych: Normal Mood and Affect Procedures/MDM Vital signs stable, low suspicion for tendon injury, open fracture, foreign body. Neurovascular exam intact. Procedure: Laceration repair The procedure was explained and consent obtained. Anesthesia: none Location: Right heel Tendon/Joint/Nerves: No injury Foreign body: None detected after copious irrigation and exploration Technique: Tissue adhesive Complexity: No subcutaneous sutures/mucosal repair/edge excision Post Closure Length: 3 cm The patient tolerated the procedure well without complications. clinical impression and possible complications like infection and a scar where discussed with the patient who agree with management. The patient is stable to be treated outpatient and will be discharged home with a Rx for Tylenol, some side effects of prescribed medications (headache, rash, nausea, vomiting, diarrhea, interactions with other medications) were reviewed. The patient was instructed to follow up with the primary care provider in the next 48h. If symptoms persist, worsen or new symptoms develop, then patient should return to the ED immediately. Instructions explained and given directly by me to the patient with acknowledgment and demonstrated understanding. Disclaimer: Inadvertent spelling and grammatical errors are likely due to EHR/dictation software use and do not reflect on the overall quality of patient care. Also, please note that the electronic time recorded on this note does not necessarily reflect the actual time of the patient encounter. Departure Diagnosis: Primary Impression: Laceration of right heel without complication Condition: Stable Additional Instructions: Thank you very much for allowing us to participate in your care. Your health and safety is our top priority at [facility]. The evaluation in the emergency department has been done to rule out an acute emergency. Chronic, [id number]-[id number] conditions may have not been evaluated; therefore, you need to follow up with a primary care provider in the next 48h. If symptoms persist, worsen or new symptoms develop, then patient should return to the ED immediately. Call your primary care doctor TOMORROW for an appointment during the next 2-4 days and bring all the information provided. Have prescriptions filled and follow precisely the directions on the label. If the symptoms get worse and your provider is unavailable, return to the Emergency Department immediately. JACINTA NELSON MD Jan 04, 2019 19:57
== END 2019-01-04 20:24 | disposition home or self-care (01) ==
LOC: FTE 18:28
DX: S91.311A Laceration without foreign body, right foot, initial encounter (principal); W22.8XXA Striking against or struck by other objects, initial encounter; Y92.9 Unspecified place or not applicable
CPT/HCPCS: 12002; Z7502